=== PATIENT | male | born 1990 | race Hispanic/Latino ===

== ENCOUNTER 2017-08-17 11:37 | Emergency (ER) | payer OTHER ==
[~2017-08-17] VITALS: Ht 190.5 cm; Wt 120.2 kg
[2017-08-17] MEDS ORDERED: MORPHINE SULFATE 4 MG/ML SYR IV ONE (12:30)
[2017-08-17] MEDS ORDERED: ONDANSETRON HCL 4 MG ORAL DISINTEGRATING TAB SL ONE (12:30)
[2017-08-17] MEDS ORDERED: KEPPRA500 MG PO (14:37)
[2017-08-17 16:02] VITALS: BP 146/86
== END 2017-08-17 15:00 | disposition home or self-care (01) ==
LOC: FSED 11:37
DX: R10.12 Left upper quadrant pain (principal); R07.89 Other chest pain; G40.309 Generalized idiopathic epilepsy and epileptic syndromes, not intractable, without status epilepticus
CPT/HCPCS: 36415; 70460; 71101; 80053; 80156; 81003; 85025; 99284; J2270

== ENCOUNTER 2017-09-30 16:13 | Emergency (ER) | payer OTHER ==
[~2017-09-30] VITALS: Ht 190.5 cm; Wt 115.2 kg
[~2017-09-30 16:13] MED LIST: KEPPRA500 MG PO
[2017-09-30 17:44] VITALS: BP 130/66
== END 2017-09-30 17:51 | disposition home or self-care (01) ==
LOC: FSED 16:13
DX: K75.9 Inflammatory liver disease, unspecified (principal); K21.9 Gastro-esophageal reflux disease without esophagitis; F14.10 Cocaine abuse, uncomplicated; B19.20 Unspecified viral hepatitis C without hepatic coma; B20 Human immunodeficiency virus [HIV] disease
CPT/HCPCS: 80053; 80307; 81003; 85025; 99283

== ENCOUNTER 2017-11-08 12:23 | Emergency (ER) | payer OTHER ==
[~2017-11-08] VITALS: Ht 190.5 cm; Wt 115.2 kg
[2017-11-08] MEDS ORDERED: MORPHINE SULFATE INJ 4 MG/ML INJ IV STA (12:36)
[2017-11-08] MEDS ORDERED: ONDANSETRON HCL INJ 2 MG/ML VIAL IV STA (12:36)
[2017-11-08] MEDS ORDERED: KETOROLAC TROMETHAMINE 30 MG/ML VIAL IV STA (12:36)
[2017-11-08] MEDS ORDERED: SODIUM CHLORIDE 0.9% 1000ML 1,000 ML IV STA (12:36)
[2017-11-08 13:00] LABS: BASOPHILS % 0.3 % (0.0-1.0); EOSINOPHILS % 0.6 % (0.0-6.0); HEMATOCRIT 42.5 % (38.2-49.6); HEMOGLOBIN 14.5 g/dL (14.0-18.0); LYMPHOCYTES # (AUTO) 2.1 (1.0-3.2); LYMPHOCYTES % 33.3 % (18.0-39.1); MEAN CORPUSCULAR HEMOGLOBIN 30.4 pg (28-32); MEAN CORPUSCULAR HGB CONC 34.1 g/dL (31-35); MEAN CORPUSCULAR VOLUME 89.1 fL (81-99); MONOCYTES # (AUTO) 0.5 (0.2-0.8); MONOCYTES % 8.7 % (4.4-11.3); NEUTROPHILS # (AUTO) 3.5 (2.1-6.9); NEUTROPHILS % 56.6 % (38.7-80.0); PLATELET COUNT 255 x10e3/uL (140-360); RED BLOOD COUNT 4.77 x10e6/uL (4.3-5.7); RED CELL DISTRIBUTION WIDTH 13.7 % (11.7-14.4)
[2017-11-08 13:19] LABS: ALANINE AMINOTRANSFERASE 220 IU/L (0-55); ALBUMIN/GLOBULIN RATIO 0.7 (0.8-2.0); ALKALINE PHOSPHATASE 69 IU/L (40-150); AMYLASE 84 U/L (25-125); ANION GAP 13.1 mmol/L (8-16); BLOOD UREA NITROGEN 8 mg/dL (7-26); BUN/CREATININE RATIO 8 (6-25); CALCIUM 9.6 mg/dL (8.4-10.2); CARBON DIOXIDE 28 mmol/L (22-29); CHLORIDE 101 mmol/L (98-107); CREATININE, SERUM 1.03 mg/dL (0.72-1.25); EST GLOMERULAR FILTRATION RATE > 60 ML/MIN (60-); GLUCOSE 109 mg/dL (74-118); LIPASE 95 U/L (8-78); POTASSIUM 4.1 mmol/L (3.5-5.1); SODIUM 138 mmol/L (136-145)
[2017-11-08 13:23] LABS: CLARITY,URINE CLEAR (CLEAR); COLOR,URINE YELLOW (YELLOW); KETONES,URINE NEGATIVE (NEGATIVE); LEUKOCYTE ESTERASE ,URINE NEGATIVE (NEGATIVE); NITRITE,URINE NEGATIVE (NEGATIVE); PROTEIN,URINE DIPSTICK 2+ (NEGATIVE); URINE UROBILINOGEN 1 mg/dL (0.2 - 1)
[2017-11-08 13:24] LABS: BILIRUBIN,URINE NEGATIVE (NEGATIVE); WBC,URINE (MAN) 0-5 /HPF (0-5)
--- NOTE | 2017-11-08 13:53 | Diagnostic Imaging Report ---
EXAM: CT Abdomen and Pelvis WITHOUT contrast INDICATION: \S\STONE PROTOCOL \S\[id number] \S\1304 \S\Y COMPARISON: None. TECHNIQUE: Abdomen and pelvis were scanned utilizing a multidetector helical scanner from the lung base to the pubic symphysis without administration of IV contrast. Absence of intravenous contrast decreases sensitivity for detection of focal lesions and vascular pathology. Coronal and sagittal reformations were obtained. Routine protocol was performed. IV CONTRAST: None. ORAL CONTRAST: Water RADIATION DOSE: Total DLP: 894.7 mGy*cm Estimated effective dose: (DLP x 0.015 x size factor) mSv COMPLICATIONS: None FINDINGS: LINES and TUBES: None. LOWER THORAX: Unremarkable HEPATOBILIARY: No focal hepatic lesions. No biliary ductal dilation. Small amount of pneumobilia may be postoperative. No calcification within the common bile duct. GALLBLADDER: Cholecystectomy. SPLEEN: No splenomegaly. PANCREAS: No focal masses or ductal dilatation. Mild fat stranding surrounding the pancreatic tail (series 3, image 16 on coronal image 61). ADRENALS: No adrenal nodules KIDNEYS/URETERS: No hydronephrosis. No cystic or solid mass lesions. No stones. GI TRACT: No abnormal distention, wall thickening, or evidence of bowel obstruction. Appendix is normal. PELVIC ORGANS/BLADDER: Unremarkable. LYMPH NODES: Few nonspecific subcentimeter left para-aortic and retroperitoneal lymph nodes, for example on series 3, image 92. VESSELS: Unremarkable. PERITONEUM / RETROPERITONEUM: No free air or fluid. BONES: Unremarkable. SOFT TISSUES: Unremarkable. IMPRESSION: 1. Mild fat stranding surrounding the pancreatic tail may be due to acute pancreatitis. Correlate with pancreatic enzymes. 2. Status post cholecystectomy and mild pneumobilia, likely postoperative. 3. No calcified stones within the biliary ducts on limited evaluation. Signed by: Dr. Isela Sheikh M.D. on 11/08/2017 1:49 PM
[2017-11-08] MEDS ORDERED: HYDROCODONE/APAP 5MG-325MG TAB PO ONE (14:00)
[2017-11-08] MEDS ORDERED: FENTANYL CITRATE/PF 100MCG/2 ML INJ IV ONE (14:00)
[2017-11-08 18:25] LABS: EOSINOPHILS % (MANUAL) 1 % (0-7); LYMPHOCYTES % (MANUAL) 28 % (19-48); MONOCYTES % (MANUAL) 5 % (3.4-9.0); NEUTROPHILS % (MANUAL) 64 % (40-74)
[2017-11-08 18:27] LABS: PLATELET ESTIMATE ADEQUATE; PLATELET MORPHOLOGY COMMENT NORMAL; RBC MORPHOLOGY COMMENT NORMAL
== END 2017-11-08 14:45 | disposition home or self-care (01) ==
LOC: ER 12:23
DX: R07.89 Other chest pain (principal); R09.1 Pleurisy; B20 Human immunodeficiency virus [HIV] disease; G40.909 Epilepsy, unspecified, not intractable, without status epilepticus
CPT/HCPCS: 36415; 74176; 80053; 81001; 82150; 83690; 85025; 99284; J1885; J2270; J2405; J7030

== ENCOUNTER 2018-08-24 21:05 | Emergency (ER) | payer OTHER ==
[~2018-08-24] VITALS: Ht 190.5 cm; Wt 115.2 kg
[~2018-08-24 21:05] MED LIST changes: +CIPRO500 MG PO; +FLAGYL500 MG PO; +LEVETIRACETAM1000 MG PO; +TIVICAY PO; +TYLENOL WITH C1 EACH PO; +ZOFRAN4 MG SL
--- OUTSIDE RECORDS SUMMARY | 2018-08-24 21:08 | XMS REPORT ---
Author Author Admin, [place] Organization [facility] Address [address] [facility] [address] [place] [address] Phone Allergies, Adverse Reactions, Alerts Allergy Name Reaction Description Start Date Severity Status Provider CALIXTO rash Moderate Active Abdulaziz Chases EXPLOSIVE OPERATOR-C TIVICAY Mild No Longer Active Abdulaziz Quiles EXPLOSIVE OPERATOR-C TIVICAY Critical No Longer Active Amanda Munguia MA TIVICAY UNK Inactive Abdulaziz Chases EXPLOSIVE OPERATOR-C Conditions or Problems Problem Name Problem Code Onset Date Status Entry Date Provider Comment Standard Description Annotate STIMULANT USE DISORDER, COCAINE, MODERATE Active David Ram MD STIMULANT USE DISORDER, COCAINE, MILD Active David Ram MD ALCOHOL USE DISORDER, SEVERE Active David Ram MD STIMULANT INTOXICATION, COCAINE, W/OUT PERCEPT DISTURBNCS, W/ USE DISORD, MODERATE Active David Ram MD Pathological drug intoxication DEPRESSIVE DISORDER, MAJOR, RECURRENT EPISODE, MODERATE Active Isabelle Decker [facility] Major depressive disorder, recurrent episode, moderate degree Mood disorder 296.90 Active Abdulaziz Quiles EXPLOSIVE OPERATOR-C Unspecified episodic mood disorder Penile wart 078.11 Active Abdulaziz Quiles EXPLOSIVE OPERATOR-C Condyloma acuminatum Seizure disorder 780.39 Active Abdulaziz Chases EXPLOSIVE OPERATOR-C Other convulsions Transaminases, serum, elevated 790.4 Active Abdulaziz Quiles EXPLOSIVE OPERATOR-C Nonspecific elevation of levels of transaminase or lactic acid dehydrogenase [LDH] HIV infection 042 Active Anne Harp MA Human immunodeficiency virus [HIV] disease Dysuria ICD-788.1 Inactive Abdulaziz Quiles NP-C Pre-procedural laboratory examination ICD-V72.63 Inactive Abdulaziz Quiles NP-C Dysuria 788.1 Resolved Abdulaziz Quiles NP-C Dysuria Pre-procedural laboratory examination V72.63 Resolved Abdulaziz uQiles NP-C Pre-procedural laboratory examination Medication List Medication Instructions Start Date Stop Date Generic Name NDC Status Provider Patient Instruction SERTRALINE HCL 50 MG TABLET TAKE 1 TABLET BY MOUTH EVERY DAY SERTRALINE HCL 50060357326 Active Abdulaziz Quiles NP-C Active BACTRIM DS 800-160 MG ORAL TABLET Take one tablet by mouth once daily SULFAMETHOXAZOLE-TRIMETHOPRIM 31803260855 Active Abdulaziz Quiles NP-C Active DESCOVY 200-25 MG ORAL TABLET Take one tablet by mouth once daily EMTRICITABINE-TENOFOVIR AF 02909472470 Active Abdulaziz Quiles NP-C Active LEVETIRACETAM 500 MG ORAL TABLET Take one tablet by mouth twice daily LEVETIRACETAM 04682125461 Active Abdulaziz Quiles NP-C Active PREZCOBIX 800-150 MG ORAL TABLET Take one tablet by mouth once daily with food DARUNAVIR-COBICISTAT 04910291603 Active Abdulaziz Quiles NP-C Active IMIQUIMOD 5 % EXTERNAL CREAM Apply to affected area Mon., Wed. & Fri. at bedtime; wash off in a.m. IMIQUIMOD 5 % EXTERNAL CREAM 306851 IMIQUIMOD Inactive IMIQUIMOD 5 % EXTERNAL CREAM Apply to affected area Mon., Wed. & Fri. at bedtime; wash off in a.m. IMIQUIMOD 55187213053 No Longer Active Abdulaziz MORGANC Active Immunizations Vaccine Administration Date Value Standard Description influenza immunization (Flu Vax) has been administered given elsewhere influenza virus vaccine, unspecified formulation Vital Signs Date Name Value Unit Range Description blood pressure, diastolic 84 mm[Hg] BP deleon blood pressure, systolic 132 mm[Hg] BP sys height E&M 74 [in_us] Bdy height pulse rate E&M 80 /min Heart rate weight E&M 268 [lb_av] Weight Measured blood pressure, diastolic 82 mm[Hg] BP deleon blood pressure, systolic 129 mm[Hg] BP sys height E&M 74 [in_us] Bdy height pulse rate E&M 80 /min Heart rate weight E&M 269.20 [lb_av] Weight Measured blood pressure, diastolic 82 mm[Hg] BP deleon blood pressure, systolic 135 mm[Hg] BP sys height E&M 74 [in_us] Bdy height pulse rate E&M 78 /min Heart rate respiratory rate E&M 16 /min Resp rate temperature E&M 98.2 [degF] Body temperature weight E&M 266.13 [lb_av] Weight Measured blood pressure, diastolic 81 mm[Hg] BP deleon blood pressure, systolic 131 mm[Hg] BP sys height E&M 74 [in_us] Bdy height pulse rate E&M 82 /min Heart rate temperature E&M 98.2 [degF] Body temperature weight E&M 264 [lb_av] Weight Measured Diagnostic Results Date Name Value Unit Range Description Lab Report: CD4/CD8 Ratio Profile, Comp. Metabolic Panel (14), Lipid Lang ... - Chemistry very low density lipoproteins 46 mg/dL 5-40 Lab Report: CD4/CD8 Ratio Profile, Comp. Metabolic Panel (14), RNA, Real ... - Chemistry hepatitis B surface antigen Negative Negative chloride, serum 99 mmol/L 96-106 Lab Report: CD4/CD8 Ratio Profile, Comp. Metabolic Panel (14), RNA, Real ... - Microbiology hepatitis A antibody, total Positive Negative Lab Report: CD4/CD8 Ratio Profile, Comp. Metabolic Panel (14), RNA, Real ... - Chemistry urea nitrogen, blood 10 mg/dL 6-20 Lab Report: CD4/CD8 Ratio Profile, Comp. Metabolic Panel (14), RNA, Real ... - Serology HIV-1/HIV-2 Ab, serum Positive Negative Lab Report: QuantiFERON TB Gold (In Tube), QuantiFERON In Tube - Hematology Quantiferon Gold TB blood test for tuberculosis screening Negative Negative Lab Report: CD4/CD8 Ratio Profile, Comp. Metabolic Panel (14), RNA, Real ... - Serology human leukocyte antigen B57 Negative Lab Report: CD4/CD8 Ratio Profile, Comp. Metabolic Panel (14), RNA, Real ... - Hematology mean corpuscular hemoglobin concentration, RBC 34.3 G/DL % 31.5-35.7 erythrocyte (RBC) count 4.82 X10E6/UL 10*6/mm3 4.14-5.80 Lab Report: CD4/CD8 Ratio Profile, Comp. Metabolic Panel (14), RNA, Real ... - Serology hepatitis C antibody, serum 0.1 0.0-0.9 Lab Report: CD4/CD8 Ratio Profile, Comp. Metabolic Panel (14), RNA, Real ... - Chemistry absolute CD8 604 431-113 9370/02/25 Absolute Neutrophils 3.0 X10E3/UL 10*3/uL 1.4-7.0 Lab Report: CD4/CD8 Ratio Profile, Comp. Metabolic Panel (14), Lipid Lang ... - Chemistry LDL cholesterol, serum 86 mg/dL 0-99 Lab Report: CD4/CD8 Ratio Profile, Comp. Metabolic Panel (14), RNA, Real ... - Chemistry urea nitrogen/creatinine ratio, serum 12 9-20 Lab Report: CD4/CD8 Ratio Profile, Comp. Metabolic Panel (14), RNA, Real ... - Hematology mean corpuscular volume, RBC 93 fL 79-97 Lab Report: CD4/CD8 Ratio Profile, Comp. Metabolic Panel (14), Lipid Lang ... - Chemistry HDL cholesterol, serum 37 mg/dL >39 Lab Report: CD4/CD8 Ratio Profile, Comp. Metabolic Panel (14), RNA, Real ... - Hematology monocytes as percent of blood leukocytes 12 % Not Estab. Lab Report: CD4/CD8 Ratio Profile, Comp. Metabolic Panel (14), RNA, Real ... - Chemistry creatinine, serum 0.85 mg/dL 0.76-1.27 albumin/globulin ratio, serum 1.3 1.2-2.2 Lab Report: CD4/CD8 Ratio Profile, Comp. Metabolic Panel (14), Lipid Lang ... - Chemistry cholesterol, serum 169 mg/dL 100-199 Lab Report: CD4/CD8 Ratio Profile, Comp. Metabolic Panel (14), RNA, Real ... - Chemistry bilirubin, serum, total 0.8 mg/dL 0.0-1.2 Lab Report: CD4/CD8 Ratio Profile, Comp. Metabolic Panel (14), RNA, Real ... - Hematology Eosinophil Absolute Count 0.1 X10E3/UL 10*3/uL 0.0-0.4 Lab Report: Chlamydia/GC Amplification - Lab chlamydia DNA probe Negative Negative Lab Report: CD4/CD8 Ratio Profile, Comp. Metabolic Panel (14), RNA, Real ... - Chemistry aspartate aminotransferase (SGOT), serum 21 U/L 0-40 Lab Report: CD4/CD8 Ratio Profile, Comp. Metabolic Panel (14), RNA, Real ... - Hematology red blood cell distribution width 13.5 % 12.3-15.4 leukocyte count, blood 4.9 X10E3/UL 10*3/mm3 3.4-10.8 Lab Report: CD4/CD8 Ratio Profile, Comp. Metabolic Panel (14), RNA, Real ... - Chemistry potassium, serum 4.7 mmol/L 3.5-5.2 immature granulocytes, percentage of total cells, blood 0 % Not Estab. albumin, serum 4.6 g/dL 3.5-5.5 Lab Report: CD4/CD8 Ratio Profile, Comp. Metabolic Panel (14), RNA, Real ... - Hematology lymphocyte count, blood, automated 1.1 X10E3/UL 10*3/mm3 0.7-3.1 hematocrit, blood 44.6 % 37.5-51.0 Lab Report: Chlamydia/GC Amplification - Microbiology Neisseria gonorrhoeae DNA probe Negative Negative Lab Report: CD4/CD8 Ratio Profile, Comp. Metabolic Panel (14), RNA, Real ... - Chemistry sodium, serum 137 mmol/L 134-144 Lab Report: CD4/CD8 Ratio Profile, Comp. Metabolic Panel (14), RNA, Real ... - Serology toxoplasma gondii antibody, IgG <3.0 0.0-7.1 Lab Report: CD4/CD8 Ratio Profile, Comp. Metabolic Panel (14), RNA, Real ... - Hematology neutrophils as percent of blood leukocytes 64 % Not Estab. basophils as percent of blood leukocytes 0 % Not Estab. Lab Report: CD4/CD8 Ratio Profile, Comp. Metabolic Panel (14), RNA, Real ... - Serology HIV-1RNA, serum, by PCR, quantitative 1100 {Copies}/mL Lab Report: CD4/CD8 Ratio Profile, Comp. Metabolic Panel (14), RNA, Real ... - Toxicology HIV-2 antibodies, western blot Negative Negative Lab Report: CD4/CD8 Ratio Profile, Comp. Metabolic Panel (14), RNA, Real ... - Serology rapid plasma reagin antibody, serum Non Reactive Non Reactive Lab Report: CD4/CD8 Ratio Profile, Comp. Metabolic Panel (14), RNA, Real ... - Chemistry CD4/CD8 ratio 0.31 0.92-3.72 carbon dioxide, venous blood 27 mmol/L 20-29 Lab Report: CD4/CD8 Ratio Profile, Comp. Metabolic Panel (14), RNA, Real ... - Serology hepatitis B core antibody, total Negative Negative Lab Report: CD4/CD8 Ratio Profile, Comp. Metabolic Panel (14), Lipid Lang ... - Chemistry triglyceride, serum, fasting 230 mg/dL 0-149 Lab Report: CD4/CD8 Ratio Profile, Comp. Metabolic Panel (14), RNA, Real ... - Chemistry calcium, serum 9.4 mg/dL 8.7-10.2 alanine aminotransferase (SGPT), serum 27 U/L 0-44 Lab Report: CD4/CD8 Ratio Profile, Comp. Metabolic Panel (14), RNA, Real ... - Hematology mean corpuscular hemoglobin, RBC 31.7 pg 26.6-33.0 Lab Report: CD4/CD8 Ratio Profile, Comp. Metabolic Panel (14), RNA, Real ... - Chemistry protein, total, serum 8.1 g/dL 6.0-8.5 alkaline phosphatase, serum 83 U/L 39-117 Lab Report: CD4/CD8 Ratio Profile, Comp. Metabolic Panel (14), RNA, Real ... - Hematology T-helper cells (CD4) as percent of blood lymphocytes 17.0 % 30.8-58.5 hemoglobin, blood 15.3 g/dL 13.0-17.7 T-suppressor cells (CD8) as percent of blood lymphocytes 54.9 % 12.0-35.5 lymphocytes as percent of blood leukocytes 23 % Not Estab. Lab Report: CD4/CD8 Ratio Profile, Comp. Metabolic Panel (14), RNA, Real ... - Genetics/fertility eGFR if 138 mL/min/1.73m2 >59 Lab Report: CD4/CD8 Ratio Profile, Comp. Metabolic Panel (14), RNA, Real ... - Hematology basophil count, absolute 0.0 x10E3/uL 0.0-0.2 Lab Report: CD4/CD8 Ratio Profile, Comp. Metabolic Panel (14), RNA, Real ... - Chemistry globulin, serum 3.5 1.5-4.5 Estimated Glomerular Filtration Rate (calc) 119 mL/min/1.73m2 >59 Lab Report: CD4/CD8 Ratio Profile, Comp. Metabolic Panel (14), RNA, Real ... - Serology hepatitis B surface antibody Reactive Lab Report: CD4/CD8 Ratio Profile, Comp. Metabolic Panel (14), RNA, Real ... - Hematology eosinophils as percent of blood leukocytes 1 % Not Estab. Lab Report: CD4/CD8 Ratio Profile, Comp. Metabolic Panel (14), RNA, Real ... - Chemistry blood glucose, random 99 mg/dL 65-99 Lab Report: CD4/CD8 Ratio Profile, Comp. Metabolic Panel (14), RNA, Real ... - Hematology monocyte count, blood, automated 0.6 X10E3/UL 10*3/uL 0.1-0.9 T-helper cells (CD4) count 187 /UL uL 359-1519 platelet count 266 X10E3/UL 10*3/mm3 150-379 Encounters Date Encounter Provider Code Facility 10:59:00 CDT Est Patient Exp Problem - 96900 David Ram MD CPT-02701 [facility] Behavioral Health 08:36:47 ROLL EXAMINER Est Patient Exp Problem - 74449 Abdulaziz Quiles EXPLOSIVE OPERATOR-C CPT-70387 [facility] Adult Medicine 10:51:27 CDT New Patient Exp Problem - 41249 Abdulaziz Quiles EXPLOSIVE OPERATOR-C CPT-88938 [facility] Adult Medicine Procedures Code Procedure Name Date Entry Date Standard Description CPT-04483 Urine Drug Screen - In House 14:28:18 ROLL EXAMINER CPT-05555 Diagnostic evaluation with medical - 93627 14:28:18 ROLL EXAMINER CPT-30540 Diagnostic evaluation (no medical) - 55714 17:54:26 ROLL EXAMINER CPT-76555 Handling of specimen for transfer 09:51:58 CDT CPT-79717 Venipuncture 09:51:58 CDT
--- OUTSIDE RECORDS SUMMARY | 2018-08-24 21:08 | XMS REPORT | Clinical Summary ---
Author Author [facility] Address Unknown Phone Unavailable Care Team Providers Care Counter Caser Name Role Phone Heber Cruz MD PCP Allergies No Known Allergies Medications End Date Status Medication Sig Dispensed Refills Start Date Active pantoprazole (PROTONIX) Take 1 tablet 30 tablet 1 40 MG tablet (40 mg total) 7 by mouth daily. Active Problems Problem Noted Date Pancreatitis 06/11/2016 Obesity (BMI 30.0-34.9) 06/11/2016 Overview: BMI 34.7 Stress at work 06/11/2016 Pancreatitis, acute 09/23/2014 Leucocytosis 09/23/2014 Abdominal pain 09/23/2014 Nausea & vomiting 09/23/2014 Diarrhea 09/23/2014 LFTs abnormal 06/19/2014 Obesity 06/15/2014 Pancreatitis, recurrent Overview: > 4 episodes Family History Medical History Relation Name Comments Stroke Maternal Grandfather Stroke Paternal Grandfather Relation Name Status Comments Maternal Grandfather Paternal Grandfather Social History Date Tobacco Use Types Packs/Day Years Used Quit: 06/18/2016 Former Smoker Alcohol Use Drinks/Week oz/Week Comments No Sex Assigned at Date Recorded Not on file Industry Job Start Date Occupation Not on file Not on file Not on file Travel End Travel History Travel Start No recent travel history available. Last Filed Vital Signs Not on file Plan of Treatment Not on file Implants Device Identifier Shelf Expiration Date Model / Serial / Lot Implanted Type Area Manufactur er 09/07/2016 [id number] / / Stent,Biliary Flexima 8.5fr 7cm - Stents-Per [place] [id number] Implanted: Qty: 1 on 06/12/2014 09/07/2016 / REF [id number] / [id number] Flexima Biliary Duodenal Bend Stent N/A: Common [place] Implanted: Qty: 1 on 06/12/2014 by Bile Duct SCIENTIFIC Joslyn Metz MD Results Not on fileafter 08/23/2017 Advance Directives For more information, please contact: [address] [address] Date Inactivated Comments Code Status Date Activated 07/21/2016 7:40 PM Full Code 07/16/2016 7:44 PM This code status was determined by: Patient 09/26/2014 6:49 PM Full Code 09/23/2014 5:20 PM This code status was determined by: Patient 06/19/2014 6:05 PM Full Code 06/16/2014 6:10 PM This code status was determined by: Patient 06/13/2014 10:45 PM Full Code 06/10/2014 12:51 AM This code status was determined by: Patient
[2018-08-24] MEDS ORDERED: SODIUM CHLORIDE 0.9% 1000ML 1,000 ML IV STA (22:08)
[2018-08-24] MEDS ORDERED: DIATRIZOATE MEGL/DIATRIZOA SOD 30 ML BTL PO ONE (22:20)
[2018-08-24 22:29] LABS: BASOPHILS % 0.3 % (0.0-1.0); EOSINOPHILS % 0.3 % (0.0-6.0); HEMATOCRIT 45.3 % (38.2-49.6); HEMOGLOBIN 15.4 g/dL (14.0-18.0); LYMPHOCYTES # (AUTO) 1.3 (1.0-3.2); LYMPHOCYTES % 11.1 % (18.0-39.1); MEAN CORPUSCULAR HEMOGLOBIN 31.4 pg (28-32); MEAN CORPUSCULAR VOLUME 92.4 fL (81-99); MONOCYTES # (AUTO) 0.7 (0.2-0.8); MONOCYTES % 6.1 % (4.4-11.3); NEUTROPHILS # (AUTO) 9.2 (2.1-6.9); NEUTROPHILS % 81.6 % (38.7-80.0); PLATELET COUNT 294 x10e3/uL (140-360); RED CELL DISTRIBUTION WIDTH 12.8 % (11.7-14.4)
[2018-08-24 22:42] LABS: CLARITY,URINE HAZY (CLEAR); COLOR,URINE YELLOW (YELLOW)
[2018-08-24 22:43] LABS: KETONES,URINE TRACE (NEGATIVE); LEUKOCYTE ESTERASE ,URINE NEGATIVE (NEGATIVE); NITRITE,URINE NEGATIVE (NEGATIVE); PROTEIN,URINE DIPSTICK 1+ (NEGATIVE)
[2018-08-24 22:44] LABS: BILIRUBIN,URINE NEGATIVE (NEGATIVE); URINE UROBILINOGEN 1 mg/dL (0.2 - 1)
[2018-08-24 22:47] LABS: BACTERIA,URINE MODERATE /HPF; EPITHELIAL CELLS,URINE FEW /LPF; RBC,URINE 0-5 /HPF (0-5); WBC,URINE (MAN) 0-5 /HPF (0-5)
[2018-08-24 22:48] LABS: AMORPHOUS SEDIMENT,URINE MODERATE (FEW)
[2018-08-24 22:55] LABS: ALANINE AMINOTRANSFERASE 38 IU/L (0-55); ALBUMIN 4.1 g/dL (3.5-5.0); ALBUMIN/GLOBULIN RATIO 0.8 (0.8-2.0); ALKALINE PHOSPHATASE 73 IU/L (40-150); AMYLASE 115 U/L (25-125); ANION GAP 12.4 mmol/L (8-16); BLOOD UREA NITROGEN 12 mg/dL (7-26); BUN/CREATININE RATIO 13 (6-25); CALCIUM 9.8 mg/dL (8.4-10.2); CARBON DIOXIDE 26 mmol/L (22-29); CHLORIDE 100 mmol/L (98-107); CREATININE, SERUM 0.96 mg/dL (0.72-1.25); EST GLOMERULAR FILTRATION RATE > 60 ML/MIN (60-); GLUCOSE 106 mg/dL (74-118); LIPASE 42 U/L (8-78); MAGNESIUM 2.2 MG/DL (1.3-2.1); POTASSIUM 4.4 mmol/L (3.5-5.1); SODIUM 134 mmol/L (136-145)
[2018-08-24] MEDS ORDERED: MORPHINE SULFATE INJ 4 MG/ML INJ 1ML IV STA (23:16)
[2018-08-24] MEDS ORDERED: ONDANSETRON HCL INJ 2MG/ML 2ML 2 MG/ML VIAL IV STA (23:16)
[2018-08-24] MEDS ORDERED: IOPAMIDOL 370 MG/ML 200 ML INFUS..BTL INJ ONE (23:26)
[2018-08-24] MEDS ORDERED: SODIUM CHLORIDE 0.9% 50ML 50 ML ONE (23:26)
--- NOTE | 2018-08-25 00:21 | Diagnostic Imaging Report ---
CT Abdomen And Pelvis with Intravenous Contrast INDICATION: Nausea, vomiting, diarrhea ^LLQ pain, rule out colitis TECHNIQUE: Thin collimation axial images obtained from the diaphragm to the level of the pubic symphysis following the uneventful administration of oral and 100 cc of low osmolar, nonionic intravenous contrast. Dose reduction techniques used: Automated exposure control, adjustment of the mAs and/or kVp according to patient size, standardized low-dose protocol, and/or iterative reconstruction technique. RADIATION DOSE: Total DLP: 881.44 mGy*cm Estimated effective dose: (DLP x 0.015 x size factor) mSv CTDIvol has been reviewed. It is below the limits set by the Radiation Protocol Committee (RPC). COMPARISON: CT abdomen/pelvis 01/13/2018. ABDOMEN FINDINGS: Lung Bases: Clear. The visualized portions of the mediastinum are normal.. Liver: Mild steatosis. No evidence for mass. Gallbladder: Absent. No biliary ductal dilatation. Pancreas: Normal attenuation without mass or ductal dilatation. Spleen: Normal in size. No evidence of mass.. Adrenal Glands: No evidence for mass. Kidneys/ureters: Right: Normal enhancement. No soft tissue mass. No hydronephrosis. Left: Normal enhancement. No soft tissue mass. No hydronephrosis. No ureteral dilatation or calculus. Lymph Nodes: No enlarged abdominal or retroperitoneal lymph nodes. Aorta: Normal in diameter PELVIS FINDINGS: Bowel: Stomach: Normal. Small Bowel: Enteric contrast present throughout. No mural thickening or dilatation. Large Bowel: There is enteric contrast in the proximal right colon. No significant stool burden throughout the large bowel. No mural thickening or pericolonic inflammation.. Appendix: Normal appendix. Bladder: Normal. Peritoneum/retroperitoneum: No free fluid or fluid collection Bones: Unremarkable for age. Soft tissues: Fat-containing of focal hernia has an aperture of 9 mm. IMPRESSION: 1. No evidence for bowel obstruction or inflammation. Normal appendix. No alternative findings to explain left lower quadrant pain 2. Steatosis. 3. Cholecystectomy. Normal biliary tree. Signed by: Dr. Hugo Evans MD on 08/25/2018 12:18 AM
[2018-08-25 02:19] VITALS: BP 123/65
== END 2018-08-25 02:35 | disposition home or self-care (01) ==
LOC: ER 21:05
DX: R10.12 Left upper quadrant pain (principal); R11.2 Nausea with vomiting, unspecified; R19.7 Diarrhea, unspecified; B18.2 Chronic viral hepatitis C; Z21 Asymptomatic human immunodeficiency virus [HIV] infection status; G40.919 Epilepsy, unspecified, intractable, without status epilepticus; J45.909 Unspecified asthma, uncomplicated; G43.909 Migraine, unspecified, not intractable, without status migrainosus; K21.9 Gastro-esophageal reflux disease without esophagitis
CPT/HCPCS: 36415; 74177; 80053; 81001; 82150; 83690; 83735; 85025; 87086; 99284; J2270; J2405; J7030; Q9967

== ENCOUNTER 2019-12-14 14:49 | Emergency (ER) | payer OTHER ==
[~2019-12-14] VITALS: Ht 190.5 cm; Wt 115.2 kg
[~2019-12-14 14:49] MED LIST changes: +KEPPRA750 MG PO; +PREZCOBIX 8001 EACH; +PROMETHAZINE HC25 M1 PO; +SERTRALINE HCL50 MG PO; +SUMATRIPTAN SUC25 MG PO; +TOPAMAX200 MG; +TOPAMAX50 MG PO
[2019-12-14 15:41] LABS: BASOPHILS % 0.6 % (0.0-1.0); EOSINOPHILS # (AUTO) 0.2 (0.0-0.4); EOSINOPHILS % 2.3 % (0.0-6.0); HEMATOCRIT 44.4 % (38.2-49.6); HEMOGLOBIN 15.3 g/dL (14.0-18.0); LYMPHOCYTES % 29.6 % (18.0-39.1); MEAN CORPUSCULAR HGB CONC 34.5 g/dL (31-35); MEAN CORPUSCULAR VOLUME 90.1 fL (81-99); MONOCYTES # (AUTO) 0.5 (0.2-0.8); MONOCYTES % 7.6 % (4.4-11.3); NEUTROPHILS # (AUTO) 4.1 (2.1-6.9); NEUTROPHILS % 59.8 % (38.7-80.0); PLATELET COUNT 260 x10e3/uL (140-360); RED BLOOD COUNT 4.93 x10e6/uL (4.3-5.7); RED CELL DISTRIBUTION WIDTH 12.8 % (11.7-14.4)
[2019-12-14 15:43] LABS: AMPHETAMINES SCREEN,URINE NEGATIVE (NEGATIVE); BENZODIAZEPINES SCREEN,URINE NEGATIVE (NEGATIVE); PHENCYCLIDINE SCREEN,URINE NEGATIVE (NEGATIVE)
--- OUTSIDE RECORDS SUMMARY | 2019-12-14 15:43 | XMS REPORT | Clinical Summary ---
Author Author [facility] Organization [facility] Address Unknown Phone Unavailable Care Team Providers Care Division Operations Manager Name Role Phone Kapil Samuels MD PCP Allergies No Known Allergies Medications End Date Status Medication Sig Dispensed Refills Start Date Active traMADol (ULTRAM) 50 mg Take 1 tablet 10 tablet 0 tabletIndications: by mouth 7 Diarrhea of infectious every 8 hours origin as needed for Pain. Active qajnxdzk-ugafpzuccvqs-oqi Take 1 tablet 30 tablet 5 ivud (TRIUMEQ) 600-50-300 by mouth 8 mg per tabletIndications: daily Stop AIDS Descovy and Tivicay.. Active sertraline (ZOLOFT) 50 mg Take 1 tablet 30 tablet 5 tabletIndications: Panic by mouth 8 attack daily. Active clonazePAM (KLONOPIN) 0.5 Take 1 tablet 60 tablet 0 mg tabletIndications: by mouth 2 8 Panic attack times daily as needed for Anxiety. Active omeprazole (PRILOSEC) 20 Take 1 30 capsule 2 0 mg delayed release capsule by 8 capsuleIndications: mouth daily. 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 Generalized seizure True-positive serological test for syph ilis Seizure Acute intractable headache Immunizations Name Administration Dates Next Due Influenza Vaccine, 05/07/2017 Seasonal, Injectable Family History Medical History Relation Name Comments Arthritis Mother Diabetes Paternal Grandfather Hypertension Paternal Grandfather Stroke Paternal Grandfather Relation Name Status Comments Father Mother Alive Paternal Grandfather Social History Date Tobacco Use Types Packs/Day Years Used Never Smoker Drinks/Week oz/Week Comments Alcohol Use 4 Cans of beer 4 Shots of liquor 8.0 socially Yes Food Insecurity Answer Date Recorded Within the past 12 months, you worried that your Never gurjit e 05/07/2017 food would run out before you got money to buy more. Within the past 12 months, the food you bought Never true 05/07/2017 just didn't last and you didn't have mo enedelia to get more. Sex Assigned at Date Recorded Not on file Industry Job Start Date Occupation Not on file Not on file Not on file Travel End Travel History Travel Start No recent travel history available. Last Filed Vital Signs Not on file Plan of Treatment Health Maintenance Due Date Last Done Comments IMM Influenza Seasonal 02/09/2020 05/07/2017 Oct to July (>/= 19 yrs) Goals Goal Patient Associated Recent Progress Patient-Stat Aut hor Goal Type Problems ed? Eat Healthy Lifestyle No Andreina Bentley, Supervisor Frame Sample And Pattern Results Not on fileafter 12/13/2018 Insurance Type Payer Benefit Subscriber ID Effective Phone Address Plan / Dates Group [facility] xxxxxxxxxxxx 2017-P [address] [facility] resent [id number] [facility] [address] Advance Directives Date Inactivated Comments Code Status Date Activated 12/12/2016 7:26 PM Full Code 12/07/2016 12:35 PM
--- OUTSIDE RECORDS SUMMARY | 2019-12-14 15:43 | XMS REPORT | Clinical Summary ---
Author Author [facility] Organization [facility] Address Unknown Phone Unavailable Care Team Providers Care Skip Tracer Name Role Phone Heber Cruz MD PCP Unavailable Allergies No Known Allergies Medications End Date [...] Shelf Expiration Date Model / Serial / L ot Implanted Type Area Manufactur er 09/07/2016 [id number] / / Stent,Biliary Flexima 8.5fr 7cm - Stents-Per [place] [id number] [employer] Implanted: Qty: 1 on 06/12/2014 09/07/2016 / REF [id number] / [id number] Flexima Biliary Duodenal Bend Stent N/A: Common [employer] Implanted: Qty: 1 on 06/12/2014 by Bile Duct SC IENTIFIC Joslyn Metz MD Results Not on fileafter 12/13/2018 Advance Directives For more information, please contact: [address] [address] Date Inactivated Comments Code Status [...]
--- OUTSIDE RECORDS SUMMARY | 2019-12-14 15:45 | XMS REPORT ---
Author Author Tevin, Antonio Martin Organization Unknown Address Unknown Phone Unavailable Care Team Providers Care Hand Turner Name Role Phone Abdulaziz Quiles Unavailable PROBLEMS Condition Status Date Provider Notes Shortness of breath (SOB) active Abdulaziz farmer nxiety-induced Penile lesion completed - Abdulaziz Quiles STIMULANT USE DISORDER, COCAINE, MODERATE active 08/04 David Ram STIMULANT USE DISORDER, COCAINE, MILD completed - Abdulaziz Quiles STIMULANT INTOXICATION, COCAINE, W/OUT P ERCEPT DISTURBNCS, W/ USE DISORD, MODERATE active David Ram ALCOHOL USE DISORDER, SEVERE active David Petit DEPRESSIVE DISORDER, MAJOR, RECURRENT EPISODE, MODERATE active Isabelle Decker Transaminases, serum, elevated completed - Abdulaziz Quiles Dysuria completed - Abdulaziz Quiles Seizure disorder active Abdulaziz Quiles Mood disorder active Abdulaziz Quiles Penile wart completed - Abdulaziz Quiles HIV infection active Anne Harp Pre-procedural laboratory examination completed - Abdulaziz Quiles ENCOUNTERS Date Type Provider Location Encounter Diagn osis - Ambulatory Encounter David gardner Callabdulazizo David Jacobsonizo UNK - Ambulatory Encounter Meeta Gardner UNK - Ambulatory Encounter Abdulaziz Quiles [facility] UNK - Ambulatory Encounter Meeta Gardner UNK - Ambulatory Encounter Abdulaziz Citnron Si mmons UNK - Ambulatory Encounter Abdulaziz Mcmullen Shortne ss of breath (SOB) - Ambulatory Encounter Amanda Munguia UNK - Ambulatory Encounter Abdulaziz Taylor MedAdherence, UNK - Ambulatory Encounter Jay Quiros UNK - Ambulatory Encounter Abdulaziz Adams MedAdherence UNK - Ambulatory Encounter Abdulaziz Meyers MedAdherence UNK - Ambulatory Encounter Taya Desiraeina UNK - Ambulatory Encounter Abdulaziz Quiles [facility] UNK - Ambulatory Encounter Abdulaziz Meyers MedAdherence UNK - Ambulatory Encounter Abdulaziz Quiles [facility] UNK - Ambulatory Encounter Fax Status [facility] UNK - Ambulatory Encounter Fax Status [facility] UNK - Ambulatory Encounter Fax Status [facility] UNK - Ambulatory Encounter Abdulaziz Cole Ausra UNK - Ambulatory Encounter Abdulaziz Cintron Si mmons UNK - Ambulatory Encounter Abdulaziz Cintron Si mmons UNK - Ambulatory Encounter Abdulaziz Dowdda Dayna Cole Ausra Phyllis Boyd Meeta Faustinados Penile lesion - Ambulatory Encounter Dena Talamantes UNK - Ambulatory Encounter Dena Talamantes UNK - Ambulatory Encounter Abdulaziz Campbell MedAdherence, UNK - Ambulatory Encounter Abdulaziz Taylor MedAdherence, UNK - Ambulatory Encounter Abdulaziz Quiles [facility] UNK - Ambulatory Encounter Abdulaziz Quiles Link[facility] UNK - Ambulatory Encounter Abdulaziz Cintron Si mmons UNK - Ambulatory Encounter Abdulaziz Larose-Gómez Gardner Morlin Frey Penile wartT ransaminases, serum, elevatedSTIMULANT USE DISORDER, COCAINE, MILDPenile lesion - Ambulatory Encounter Abdulaziz Quiles [facility] UNK - Ambulatory Encounter Amanda Munguia UNK - Ambulatory Encounter Abdulaziz Gardner UNK - Ambulatory Encounter Amanda Munguia Maldonado Banks UNK - Ambulatory Encounter Abdulaziz Gardner UNK - Ambulatory Encounter Abdulaziz Quiles [facility] UNK - Ambulatory Encounter Abdulaziz Quiles [facility] UNK - Ambulatory Encounter Florina Watkins UNK - Ambulatory Encounter Abdulaziz Adams MedAdherence UNK - Ambulatory Encounter [facility] Desktop [facility] Meeta Gardner UNK - [place] [facility] [place] [facility] [place] [place] [facility] Meeta Faustinados UNK - Ambulatory Encounter Florina Watkins LinkLog ic UNK - Ambulatory Encounter Abdulaziz Quiles [facility] UNK - Ambulatory Encounter Abdulaziz Quiles LinkLog[facility]ita UNK - Ambulatory Encounter Abdulaziz Quiles [facility] UNK - Ambulatory Encounter Abdulaziz Quiles [facility] UNK - Ambulatory Encounter Abdulaziz Quiles [facility] UNK - Ambulatory Encounter Amanda Munguia UNK - Ambulatory Encounter David Yon z Callizo David Jyotioz Callizo Joce Campbell MedAdherence, UNK - Ambulatory Encounter Abdulaziz Adams MedAdherence UNK - Ambulatory Encounter Amanda Munguia UNK - Ambulatory Encounter Amanda Munguia UNK - Ambulatory Encounter Christine Augustine UNK - Ambulatory Encounter Fax Status [facility] UNK - Ambulatory Encounter Shayna Montenegro UNK - Ambulatory Encounter Bridget Taylor UNK - Ambulatory Encounter David Yon z Callizo David Jyotioz Callizo Abdulaziz Grace MedAdherence UNK - Ambulatory Encounter Amanda Munguia UNK - Ambulatory Encounter David Yon z Callizo David Jyotioz Callizo Thida Mcintosh Konstantin Marina STIMULANT US E DISORDER, COCAINE, MODERATE - Ambulatory Encounter Abdulaziz Quiles [facility] UNK - Ambulatory Encounter David Solomono z Callizo David Leoz Callizo Konstantin Marina ALCOHOL USE DISORDER, S EVERESTIMULANT INTOXICATION, COCAINE, W/OUT PERCEPT DISTURBNCS, W/ USE DISORD, MODERATESTIMULANT USE DISORDER, COCAINE, MILD - Ambulatory Encounter Abdulaziz Cintron Si mmons UNK - Ambulatory Encounter Christine Fidencio Augustine UNK - Ambulatory Encounter Taya Patel UNK - Ambulatory Encounter Abdulaziz Chester UNK - Ambulatory Encounter Abdulaziz EdwardsLogtita UNK - Ambulatory Encounter Adarshki Figueroa UNK - Ambulatory Encounter Gaylechristina Figueroa UNK - Ambulatory Encounter Isabelle Lyon e Isabelle Cheng DEPRESSIVE DISORDER, MAJOR, RECURRENT EPISODE, MODERATE - Ambulatory Encounter Abdulaziz Cintron Si mmons UNK - Ambulatory Encounter Abdulaziz Nichols Dysuria - Ambulatory Encounter Amanda Munguia UNK - Ambulatory Encounter Abdulaziz Quiles Link[facility] UNK - Ambulatory Encounter Abdulaziz Quiles [facility] UNK - Ambulatory Encounter Angelique EdwardsLog ic UNK - Ambulatory Encounter Abdulaziz Munguia UNK - Ambulatory Encounter Fax Status [facility] UNK - Ambulatory Encounter Fax Status [facility] UNK - Ambulatory Encounter Fax Status [facility] UNK - Ambulatory Encounter Angelique Pederson UNK - Ambulatory Encounter Venice Farhan UNK - Ambulatory Encounter [place] Farhan UNK - Ambulatory Encounter Abdulaziz dhaliwal UNK - Ambulatory Encounter Abdulaziz Larose-Gómez Monten[place] Pre-procedural laboratory ex aminationPenile wartMood disorderSeizure disorderDysuriaTransaminases, serum, elevated - Ambulatory Encounter Amanda Posadasrez UNK - Ambulatory Encounter Abdulaziz Nichols UNK - Ambulatory Encounter Abdulaziz Quiles [facility] UNK - Ambulatory Encounter Abdulaziz Quiles [facility] UNK - Ambulatory Encounter Abdulaziz Quiles Anne Harp Anne Harp Pre-procedural labo ratory examinationHIV infection VITAL SIGNS Date Observation Value Provider oxygen saturation, oximetry 97 % Ricki ardo Rivera Kemi " method used to obtain blood pressure automatic Jonathan Rivera Kemi " Blood Pressure Position 01 sitting Zoey rdo Rivera Kemi " blood pressure, site #1 right arm Jonathan Rivera Kemi " blood pressure, diastolic 74 mm[Hg] Leonar do Rivera Kemi " blood pressure, systolic 136 mm[Hg] Seth o Rivera Kemi " pulse rate 80 /min Jonathan Contrer as Kemi " temperature site temporal Jonathan Contre claar Kemi " temperature E&M 97.16 [degF] Jonathan Contrer as Kemi " temperature in centigrade E&M 36.2 Claudia Le onardo Rivera Kemi " weight E&M 266 lbs. Jonathan Contrer as Kemi " weight in kilograms E&M 120.91 kg Jonathan Rivera Kemi blood pressure, diastolic 63 mm[Hg] Meeta Gardner " blood pressure, systolic 110 mm[Hg] Meeta hassansuhail " pulse rate 66 /min Meeta Gardner " oxygen saturation, oximetry 97 % Asad Gardner " temperature E&M 98.6 [degF] Meeta Gardner " weight E&M 266 lbs. Meeta Gardner " weight in kilograms E&M 120.91 kg Meeta Gr zully " blood pressure, site #1 left arm Meeta Luis Miguel andrea " Blood Pressure Position 01 sitting Meeta Gardenr " method used to obtain blood pressure automatic Meeta Gardner " temperature site oral Meeta Gardner " height E&M 74 [in_i] Meeta Gardner " height in centimeters E&M 187.96 cm Meeta [facility] blood pressure, diastolic 71 mm[Hg] Meeta Gardner " blood pressure, systolic 114 mm[Hg] Meeta christianson " oxygen saturation, oximetry 96 % Asad Gardner " pulse rate 77 /min Meeta Gardner " temperature E&M 98.2 [degF] Meeta Gardner " weight E&M 266 lbs. Meeta Gardner " weight in kilograms E&M 120.91 kg Meeta andrea " blood pressure, site #1 left arm Meeta Luis Miguel andrea " Blood Pressure Position 01 sitting Meeta Gardner " method used to obtain blood pressure automatic Meeta Faustinados " temperature site oral Meeta Gardner " height E&M 74 [in_i] Meeta Gardner " height in centimeters E&M 187.96 cm Meeta [facility] method used to obtain blood pressure automatic Thida Mcintosh " Blood Pressure Position 01 sitting Thida Mcintosh " blood pressure, site #1 right arm Thida Tr an " blood pressure, diastolic 84 mm[Hg] Thida Mcintosh " blood pressure, systolic 132 mm[Hg] Thida T ran " pulse rate 80 /min Thida Mcintosh " weight E&M 268 lbs. Thida Mcintosh " weight in kilograms E&M 121.82 kg Thida Tr an " height E&M 74 [in_i] Thida Mcintosh " height in centimeters E&M 187.96 cm Thida Mcintosh method used to obtain blood pressure automatic Konstantin Marina " Blood Pressure Position 01 sitting Isaia s Marina " blood pressure, site #1 right arm Konstantin C anizales " blood pressure, diastolic 82 mm[Hg] Konstantin Marina " blood pressure, systolic 129 mm[Hg] Konstantin Marina " pulse rate 80 /min Konstantin Marina " weight E&M 269.20 lbs. Konstantin Marina " weight in kilograms E&M 122.36 kg Konstantin C anizales " height E&M 74 [in_i] Konstantin Marina " height in centimeters E&M 187.96 cm Konstantin Marina oxygen saturation, oximetry 98 % Francesco jyoti Nichols " respiratory rate E&M 16 /min Mitali Lauro cronin " pulse rate 78 /min Mitali Lauro Nichols " blood pressure, diastolic 82 mm[Hg] Mitali J Simone " blood pressure, systolic 135 mm[Hg] Mitali J Simone " temperature E&M 98.2 [degF] Mitali Lauro Nichols " weight E&M 266.13 lbs. Mitalijyoti Nichols " weight in kilograms E&M 120.97 kg Mitalijyoti Nichols " method used to obtain blood pressure automatic Mitali Nichols " Blood Pressure Position 01 sitting Briseydasamantha Nichols " blood pressure, site #1 left arm Mitali J Simone " temperature site oral Mitali Lauro Nichols " height E&M 74 [in_i] Mitalijyoti Nichols " height in centimeters E&M 187.96 cm Mitalijyoti Nichols oxygen saturation, oximetry 97 % Nikole Mota " pulse rate 82 /min Nelsy Mota " blood pressure, diastolic 81 mm[Hg] Sai eth Nakul " blood pressure, systolic 131 mm[Hg] Elizabe th Nakul " temperature E&M 98.2 [degF] Nelsy Nakul " weight E&M 264 lbs. Nelsy Nakul " weight in kilograms E&M 120 kg Thalia clayton Nakul " height E&M 74 [in_i] Nelsy Mota " height in centimeters E&M 187.96 cm Sai Mota " blood pressure, site #1 left arm Thalia clayton Nakul " Blood Pressure Position 01 sitting Alis figueroa Nakul " method used to obtain blood pressure automatic Nelsy Mota " temperature site oral Nelsy Mota ALLERGIES Allergy Name Onset Date Reaction Criticality Status TIVICAY aborted TRIUMEQ rash Unable to assess criticality active REASON FOR REFERRAL Start Date - End Date Service - Neurology - External RESULTS Date Observation Value Provider Reference Range Interpretati on Location rapid plasma reagin antibody, serum Non Reactive Link[facility] Non Reactive " HIV-1RNA, serum, by PCR, quantitative 280 /mL [facility] " alanine aminotransferase (SGPT), serum 28 1/L [facility] 0-44 " aspartate aminotransferase (SGOT), serum 19 1/L [facility] 0-40 " alkaline phosphatase, serum 82 1/L [facility] 39-117 " bilirubin, serum, total 0.4 mg/dL [facility] 0.0-1.2 " albumin/globulin ratio, serum 1.5 [facility] 1.2-2.2 " globulin, serum 3.1 [facility] 1.5-4.5 " albumin, serum 4.5 g/dL [facility] 4.1-5.2 " protein, total, serum 7.6 g/dL [facility] 6.0-8.5 " calcium, serum 9.3 mg/dL [facility] 8.7-10.2 " carbon dioxide, venous blood 24 mmol/L [facility] 20-29 " chloride, serum 100 mmol/L [facility] 96-106 " potassium, serum 4.3 mmol/L [facility] 3.5-5.2 " sodium, serum 138 mmol/L [facility] 134-144 " urea nitrogen/creatinine ratio, serum 10 [facility] 9 -20 " eGFR if 118 mL/min/((173/100).m2) [facility] >59 " Estimated Glomerular Filtration Rate (calc) 102 mL/min/((173/100).m2) [facility] >59 " creatinine, serum 1.00 mg/dL [facility] 0.76-1.27 " urea nitrogen, blood 10 mg/dL [facility] 6-20 " blood glucose, random 97 mg/dL [facility] 65-99 " immature granulocytes, percentage of total cells, bloo d 0 % [facility] Not Estab. " basophil count, absolute 0.0 x10E3/uL [facility] 0.0-0.2 " Eosinophil Absolute Count 0.2 X10E3/UL [facility] 0.0-0.4 " monocyte count, blood, automated 0.5 X10E3/UL [facility] 0.1 -0.9 " lymphocyte count, blood, automated 1.7 X10E3/UL [facility] 0 .7-3.1 " Absolute Neutrophils 3.8 X10E3/UL [facility] 1.4-7.0 " basophils as percent of blood leukocytes 1 % [facility] Not Estab. " eosinophils as percent of blood leukocytes 3 % [facility] ic Not Estab. " monocytes as percent of blood leukocytes 8 % [facility] Not Estab. " lymphocytes as percent of blood leukocytes 28 % [facility] Not Estab. " neutrophils as percent of blood leukocytes 60 % [facility] Not Estab. " platelet count 256 X10E3/UL [facility] 150-450 " red blood cell distribution width 14.0 % [facility] 11.6- 15.4 " mean corpuscular hemoglobin concentration, RBC 34.2 G/DL [facility] 31.5-35.7 " mean corpuscular hemoglobin, RBC 32.0 pg [facility] 26.6-3 3.0 " mean corpuscular volume, RBC 94 fL [facility] 79-97 " hematocrit, blood 42.1 % [facility] 37.5-51.0 " hemoglobin, blood 14.4 g/dL [facility] 13.0-17.7 " erythrocyte (RBC) count 4.50 X10E6/UL [facility] 4.14-5.80 " leukocyte count, blood 6.2 X10E3/UL [facility] 3.4-10.8 " CD4/CD8 ratio 0.37 [facility] 0.92-3.72 Low " T-suppressor cells (CD8) as percent of blood lymphocyt es 54.0 % [facility] 12.0-35.5 High " absolute CD8 918 [facility] 109-897 High " T-helper cells (CD4) as percent of blood lymphocytes 1 9.9 % [facility] 30.8-58.5 Low " T-helper cells (CD4) count 338 /UL [facility] [phone] Lo w HIV-1RNA, serum, by PCR, quantitative 660 /mL [facility] HERPES SIMPLEX VIRUS IDENTIFIED (PT; XXX; QL; ) HSVN L inkLogic hepatitis B surface antigen Negative [facility] Negative " hepatitis C antibody, serum <0.1 [facility] 0.0-0.9 " rapid plasma reagin antibody, serum Non Reactive [facility] Non Reactive " HIV-1RNA, serum, by PCR, quantitative 759947 /mL [facility] " LDL cholesterol, serum 73 mg/dL [facility] 0-99 " very low density lipoproteins 35 mg/dL [facility] 5-40 " HDL cholesterol, serum 25 mg/dL [facility] >39 Low " triglyceride, serum, fasting 175 mg/dL [facility] 0-149 High " cholesterol, serum 133 mg/dL [facility] 100-199 " alanine aminotransferase (SGPT), serum 60 1/L [facility] 0-44 High " aspartate aminotransferase (SGOT), serum 36 1/L [facility] 0-40 " alkaline phosphatase, serum 91 1/L [facility] 39-117 " bilirubin, serum, total 0.5 mg/dL [facility] 0.0-1.2 " albumin/globulin ratio, serum 1.2 [facility] 1.2-2.2 " globulin, serum 3.8 [facility] 1.5-4.5 " albumin, serum 4.5 g/dL [facility] 4.1-5.2 " protein, total, serum 8.3 g/dL [facility] 6.0-8.5 " calcium, serum 9.1 mg/dL [facility] 8.7-10.2 " carbon dioxide, venous blood 21 mmol/L [facility] 20-29 " chloride, serum 102 mmol/L [facility] 96-106 " potassium, serum 4.2 mmol/L [facility] 3.5-5.2 " sodium, serum 138 mmol/L [facility] 134-144 " urea nitrogen/creatinine ratio, serum 11 [facility] 9 -20 " eGFR if 138 mL/min/((173/100).m2) [facility] >59 " Estimated Glomerular Filtration Rate (calc) 119 mL/min/((173/100).m2) [facility] >59 " creatinine, serum 0.84 mg/dL [facility] 0.76-1.27 " urea nitrogen, blood 9 mg/dL [facility] 6-20 " blood glucose, random 96 mg/dL [facility] 65-99 " immature granulocytes, percentage of total cells, bloo d 0 % [facility] Not Estab. " basophil count, absolute 0.0 x10E3/uL [facility] 0.0-0.2 " Eosinophil Absolute Count 0.1 X10E3/UL [facility] 0.0-0.4 " monocyte count, blood, automated 0.5 X10E3/UL [facility] 0.1 -0.9 " lymphocyte count, blood, automated 1.1 X10E3/UL [facility] 0 .7-3.1 " Absolute Neutrophils 2.5 X10E3/UL [facility] 1.4-7.0 " basophils as percent of blood leukocytes 1 % [facility] Not Estab. " eosinophils as percent of blood leukocytes 1 % [facility] Not Estab. " monocytes as percent of blood leukocytes 11 % [facility] Not Estab. " lymphocytes as percent of blood leukocytes 26 % [facility] Not Estab. " neutrophils as percent of blood leukocytes 61 % [facility] Not Estab. " platelet count 217 X10E3/UL [facility] 150-450 " red blood cell distribution width 14.1 % [facility] 11.6- 15.4 " mean corpuscular hemoglobin concentration, RBC 32.1 G/DL [facility] 31.5-35.7 " mean corpuscular hemoglobin, RBC 29.8 pg [facility] 26.6-3 3.0 " mean corpuscular volume, RBC 93 fL [facility] 79-97 " hematocrit, blood 44.3 % [facility] 37.5-51.0 " hemoglobin, blood 14.2 g/dL [facility] 13.0-17.7 " erythrocyte (RBC) count 4.76 X10E6/UL [facility] 4.14-5.80 " leukocyte count, blood 4.2 X10E3/UL [facility] 3.4-10.8 " CD4/CD8 ratio 0.19 [facility] 0.92-3.72 Low " T-suppressor cells (CD8) as percent of blood lymphocyt es 63.2 % [facility] 12.0-35.5 High " absolute CD8 695 [facility] 109-897 " T-helper cells (CD4) as percent of blood lymphocytes 1 2.0 % [facility] 30.8-58.5 Low " T-helper cells (CD4) count 132 /UL [facility] [phone] Lo w Neisseria gonorrhoeae DNA probe Negative [facility] Negati ve " chlamydia DNA probe Negative [facility] Negative rapid plasma reagin antibody, serum Non Reactive [facility] Non Reactive " HIV-1RNA, serum, by PCR, quantitative 1100 /mL [facility] " alanine aminotransferase (SGPT), serum 27 1/L [facility] 0-44 " aspartate aminotransferase (SGOT), serum 21 1/L [facility] 0-40 " alkaline phosphatase, serum 83 1/L [facility] 39-117 " bilirubin, serum, total 0.8 mg/dL [facility] 0.0-1.2 " albumin/globulin ratio, serum 1.3 [facility] 1.2-2.2 " globulin, serum 3.5 [facility] 1.5-4.5 " albumin, serum 4.6 g/dL [facility] 3.5-5.5 " protein, total, serum 8.1 g/dL [facility] 6.0-8.5 " calcium, serum 9.4 mg/dL [facility] 8.7-10.2 " carbon dioxide, venous blood 27 mmol/L [facility] 20-29 " chloride, serum 99 mmol/L [facility] 96-106 " potassium, serum 4.7 mmol/L [facility] 3.5-5.2 " sodium, serum 137 mmol/L [facility] 134-144 " urea nitrogen/creatinine ratio, serum 12 [facility] 9 -20 " eGFR if 138 mL/min/((173/100).m2) [facility] >59 " Estimated Glomerular Filtration Rate (calc) 119 mL/min/((173/100).m2) [facility] >59 " creatinine, serum 0.85 mg/dL [facility] 0.76-1.27 " urea nitrogen, blood 10 mg/dL [facility] 6-20 " blood glucose, random 99 mg/dL [facility] 65-99 " immature granulocytes, percentage of total cells, bloo d 0 % [facility] Not Estab. " basophil count, absolute 0.0 x10E3/uL [facility] 0.0-0.2 " Eosinophil Absolute Count 0.1 X10E3/UL [facility] 0.0-0.4 " monocyte count, blood, automated 0.6 X10E3/UL [facility] 0.1 -0.9 " lymphocyte count, blood, automated 1.1 X10E3/UL [facility] 0 .7-3.1 " Absolute Neutrophils 3.0 X10E3/UL [facility] 1.4-7.0 " basophils as percent of blood leukocytes 0 % [facility] Not Estab. " eosinophils as percent of blood leukocytes 1 % [facility] Not Estab. " monocytes as percent of blood leukocytes 12 % [facility] Not Estab. " lymphocytes as percent of blood leukocytes 23 % [facility] Not Estab. " neutrophils as percent of blood leukocytes 64 % [facility] Not Estab. " platelet count 266 X10E3/UL [facility] 150-379 " red blood cell distribution width 13.5 % [facility] 12.3- 15.4 " mean corpuscular hemoglobin concentration, RBC 34.3 G/DL [facility] 31.5-35.7 " mean corpuscular hemoglobin, RBC 31.7 pg [facility] 26.6-3 3.0 " mean corpuscular volume, RBC 93 fL [facility] 79-97 " hematocrit, blood 44.6 % [facility] 37.5-51.0 " hemoglobin, blood 15.3 g/dL [facility] 13.0-17.7 " erythrocyte (RBC) count 4.82 X10E6/UL [facility] 4.14-5.80 " leukocyte count, blood 4.9 X10E3/UL [facility] 3.4-10.8 " CD4/CD8 ratio 0.31 [facility] 0.92-3.72 Low " T-suppressor cells (CD8) as percent of blood lymphocyt es 54.9 % [facility] 12.0-35.5 High " absolute CD8 604 [facility] 109-897 " T-helper cells (CD4) as percent of blood lymphocytes 1 7.0 % [facility] 30.8-58.5 Low " T-helper cells (CD4) count 187 /UL [facility] [phone] Lo w rapid plasma reagin antibody, serum Non Reactive [facility] Non Reactive " HIV-1RNA, serum, by PCR, quantitative 1440 /mL [facility] " LDL cholesterol, serum 86 mg/dL [facility] 0-99 " very low density lipoproteins 46 mg/dL [facility] 5-40 High " HDL cholesterol, serum 37 mg/dL [facility] >39 Low " triglyceride, serum, fasting 230 mg/dL [facility] 0-149 High " cholesterol, serum 169 mg/dL [facility] 100-199 " alanine aminotransferase (SGPT), serum 71 1/L [facility] 0-44 High " aspartate aminotransferase (SGOT), serum 36 1/L [facility] 0-40 " alkaline phosphatase, serum 77 1/L [facility] 39-117 " bilirubin, serum, total 0.7 mg/dL [facility] 0.0-1.2 " albumin/globulin ratio, serum 1.1 [facility] 1.2-2.2 Low " globulin, serum 4.3 [facility] 1.5-4.5 " albumin, serum 4.6 g/dL [facility] 3.5-5.5 " protein, total, serum 8.9 g/dL [facility] 6.0-8.5 High " calcium, serum 9.8 mg/dL [facility] 8.7-10.2 " carbon dioxide, venous blood 25 mmol/L [facility] 20-29 " chloride, serum 100 mmol/L [facility] 96-106 " potassium, serum 4.8 mmol/L [facility] 3.5-5.2 " sodium, serum 138 mmol/L [facility] 134-144 " urea nitrogen/creatinine ratio, serum 10 [facility] 9 -20 " eGFR if 108 mL/min/((173/100).m2) [facility] >59 " Estimated Glomerular Filtration Rate (calc) 93 m L/min/((173/100).m2) [facility] >59 " creatinine, serum 1.09 mg/dL [facility] 0.76-1.27 " urea nitrogen, blood 11 mg/dL [facility] 6-20 " blood glucose, random 104 mg/dL [facility] 65-99 High " immature granulocytes, percentage of total cells, bloo d 0 % [facility] Not Estab. " basophil count, absolute 0.0 x10E3/uL [facility] 0.0-0.2 " Eosinophil Absolute Count 0.1 X10E3/UL [facility] 0.0-0.4 " monocyte count, blood, automated 0.6 X10E3/UL [facility] 0.1 -0.9 " lymphocyte count, blood, automated 1.3 X10E3/UL [facility] 0 .7-3.1 " Absolute Neutrophils 4.0 X10E3/UL [facility] 1.4-7.0 " basophils as percent of blood leukocytes 0 % [facility] Not Estab. " eosinophils as percent of blood leukocytes 1 % [facility] Not Estab. " monocytes as percent of blood leukocytes 11 % [facility] Not Estab. " lymphocytes as percent of blood leukocytes 22 % [facility] Not Estab. " neutrophils as percent of blood leukocytes 66 % [facility] Not Estab. " platelet count 303 X10E3/UL [facility] 150-379 " red blood cell distribution width 14.0 % [facility] 12.3- 15.4 " mean corpuscular hemoglobin concentration, RBC 34.6 G/DL [facility] 31.5-35.7 " mean corpuscular hemoglobin, RBC 31.1 pg [facility] 26.6-3 3.0 " mean corpuscular volume, RBC 90 fL [facility] 79-97 " hematocrit, blood 43.4 % [facility] 37.5-51.0 " hemoglobin, blood 15.0 g/dL [facility] 13.0-17.7 " erythrocyte (RBC) count 4.82 X10E6/UL [facility] 4.14-5.80 " leukocyte count, blood 6.0 X10E3/UL [facility] 3.4-10.8 " CD4/CD8 ratio 0.23 [facility] 0.92-3.72 Low " T-suppressor cells (CD8) as percent of blood lymphocyt es 58.7 % [facility] 12.0-35.5 High " absolute CD8 763 [facility] 109-897 " T-helper cells (CD4) as percent of blood lymphocytes 1 3.6 % [facility] 30.8-58.5 Low " T-helper cells (CD4) count 177 /UL [facility] [phone] Lo w alanine aminotransferase (SGPT), serum 94 1/L [facility] 0-44 High " aspartate aminotransferase (SGOT), serum 40 1/L [facility] 0-40 " alkaline phosphatase, serum 80 1/L [facility] 39-117 " bilirubin, serum, total 0.8 mg/dL [facility] 0.0-1.2 " albumin/globulin ratio, serum 1.0 [facility] 1.2-2.2 Low " globulin, serum 4.5 [facility] 1.5-4.5 " albumin, serum 4.3 g/dL [facility] 3.5-5.5 " protein, total, serum 8.8 g/dL [facility] 6.0-8.5 High " calcium, serum 9.2 mg/dL [facility] 8.7-10.2 " carbon dioxide, venous blood 25 mmol/L [facility] 20-29 " chloride, serum 94 mmol/L [facility] 96-106 Low " potassium, serum 4.4 mmol/L [facility] 3.5-5.2 " sodium, serum 136 mmol/L [facility] 134-144 " urea nitrogen/creatinine ratio, serum 11 [facility] 9 -20 " eGFR if 138 mL/min/((173/100).m2) [facility] >59 " Estimated Glomerular Filtration Rate (calc) 119 mL/min/((173/100).m2) [facility] >59 " creatinine, serum 0.87 mg/dL [facility] 0.76-1.27 " urea nitrogen, blood 10 mg/dL [facility] 6-20 " blood glucose, random 96 mg/dL [facility] 65-99 Quantiferon Gold TB blood test for tuberculosis screening Negative [facility] Negative hepatitis A antibody, total Positive [facility] Negative Abnormal " hepatitis B core antibody, total Negative [facility] Negati ve " hepatitis B surface antigen Negative [facility] Negative " rapid plasma reagin antibody, serum Non Reactive [facility] Non Reactive " hepatitis C antibody, serum 0.1 [facility] 0.0-0.9 " HIV-2 antibodies, western blot Negative [facility] Negative " HIV-1/HIV-2 Ab, serum Positive [facility] Negative Abnorma l " HIV-CMIA (Chemiluminescent Microparticle Immuno Assay) Reactive [facility] Non Reactive Abnormal " human leukocyte antigen B57 Negative [facility] " toxoplasma gondii antibody, IgG <3.0 [facility] 0.0-7.1 " hepatitis B surface antibody Reactive [facility] " HIV-1RNA, serum, by PCR, quantitative 510376 /mL [facility] " alanine aminotransferase (SGPT), serum 165 1/L [facility] 0-44 High " aspartate aminotransferase (SGOT), serum 87 1/L [facility] 0-40 High " alkaline phosphatase, serum 78 1/L [facility] 39-117 " bilirubin, serum, total 0.6 mg/dL [facility] 0.0-1.2 " albumin/globulin ratio, serum 1.1 [facility] 1.2-2.2 Low " globulin, serum 4.0 [facility] 1.5-4.5 " albumin, serum 4.2 g/dL [facility] 3.5-5.5 " protein, total, serum 8.2 g/dL [facility] 6.0-8.5 " calcium, serum 8.9 mg/dL [facility] 8.7-10.2 " carbon dioxide, venous blood 25 mmol/L [facility] 20-29 " chloride, serum 100 mmol/L [facility] 96-106 " potassium, serum 4.6 mmol/L [facility] 3.5-5.2 " sodium, serum 137 mmol/L [facility] 134-144 " urea nitrogen/creatinine ratio, serum 7 [facility] 9 -20 Low " eGFR if 118 mL/min/((173/100).m2) [facility] >59 " Estimated Glomerular Filtration Rate (calc) 102 mL/min/((173/100).m2) [facility] >59 " creatinine, serum 1.01 mg/dL [facility] 0.76-1.27 " urea nitrogen, blood 7 mg/dL [facility] 6-20 " blood glucose, random 106 mg/dL [facility] 65-99 High " immature granulocytes, percentage of total cells, bloo d 0 % [facility] Not Estab. " basophil count, absolute 0.0 x10E3/uL [facility] 0.0-0.2 " Eosinophil Absolute Count 0.1 X10E3/UL [facility] 0.0-0.4 " monocyte count, blood, automated 0.5 X10E3/UL [facility] 0.1 -0.9 " lymphocyte count, blood, automated 1.2 X10E3/UL [facility] 0 .7-3.1 " Absolute Neutrophils 1.7 X10E3/UL [facility] 1.4-7.0 " basophils as percent of blood leukocytes 0 % [facility] Not Estab. " eosinophils as percent of blood leukocytes 1 % [facility] Not Estab. " monocytes as percent of blood leukocytes 13 % [facility] Not Estab. " lymphocytes as percent of blood leukocytes 35 % [facility] Not Estab. " neutrophils as percent of blood leukocytes 51 % [facility] Not Estab. " platelet count 248 X10E3/UL [facility] 150-379 " red blood cell distribution width 15.0 % [facility] 12.3- 15.4 " mean corpuscular hemoglobin concentration, RBC 34.4 G/DL [facility] 31.5-35.7 " mean corpuscular hemoglobin, RBC 31.8 pg [facility] 26.6-3 3.0 " mean corpuscular volume, RBC 93 fL [facility] 79-97 " hematocrit, blood 41.6 % [facility] 37.5-51.0 " hemoglobin, blood 14.3 g/dL [facility] 13.0-17.7 " erythrocyte (RBC) count 4.49 X10E6/UL [facility] 4.14-5.80 " leukocyte count, blood 3.5 X10E3/UL [facility] 3.4-10.8 " CD4/CD8 ratio 0.20 [facility] 0.92-3.72 Low " T-suppressor cells (CD8) as percent of blood lymphocyt es 64.4 % [facility] 12.0-35.5 High " absolute CD8 773 [facility] 109-897 " T-helper cells (CD4) as percent of blood lymphocytes 1 2.6 % [facility] 30.8-58.5 Low " T-helper cells (CD4) count 151 /UL [facility] [phone] Lo w Neisseria gonorrhoeae DNA probe Negative [facility] Negati ve " chlamydia DNA probe Negative [facility] Negative HISTORY OF IMMUNIZATIONS Date Vaccine Dose Lot Number Status flu vax completed HISTORY OF MEDICATION USE Medication Instructions Dates Provider Comments ZOLOFT 50 MG ORAL TABLET Take one tablet daily G georgealeah Vanessa Ram PROAIR HFA 108 (90 BASE) MCG/ACT INHALATION AEROSOL SO LUTION Take two puffs every 4 - 6 hours as needed Abdulaziz Quiles TOPAMAX 100 MG ORAL TABLET - Irma Quiles SERTRALINE HCL 50 MG TABLET TAKE 1 TABLET BY MOUTH EVERY DAY - Abdulaziz Quiles SULFAMETHOXAZOLE-TMP DS TABLET TAKE 1 TABLET BY MOUTH EVERY DAY Izabela Meyers MedAdherence IMIQUIMOD 5 % EXTERNAL CREAM Apply to affected area Mo n., Wed. & Fri. at bedtime; wash off in a.m. - Abdulaziz Quiles DESCOVY 200-25 MG ORAL TABLET Take one tablet by mouth once lisa y Abdulaziz Quiles PREZCOBIX 800 MG-150 MG TABLET TAKE 1 TABLET BY MOUTH EVERY DAY WITH FOOD Izabela Meyers MedAdhermimi LEVETIRACETAM 500 MG ORAL TABLET Take one tablet by mouth tw ice daily Abdulaziz Quiles SOCIAL HISTORY Date Observation Value Provider family support PT was raised by mom , dad when PT was 13, they were already . PT reports distant relationship with mom d/t lack of communication. Currently single, on and off b/f broke up last month. David Ram " tobacco use (cigarettes, cigar, chew, pipe) Curr ently David Ram " smoking status never smoker David bartlett " home/family situation, assessment Lives with cur rent partner David Ram " social history E&M Dating since 2018. S pouse/Partner/Significant Other: [facility] Amanda Tan/Terri Quiles/Mitali Huang/Joyce Brambila Rajesh Robb'Alec/Eeron Osmin . PT was raised by mom, dad when PT was 13. PT reports distant relationship with mom d/t lack of communication. Currently single, on and off b/f broke up last month. Born [place] City: [place]. 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 Sexual orientation: Sequeira. Gender identity: Male. Gender of partner(s): Male. Sexually Active: No. Identifies as sequeira male. Not currently sexually active. Dx with HIV last year, reports overall acceptance. David Ram " social history reviewed E&M reviewed today Villa Ram drug use, illicit Currently Jonathan annas Kemi " alcohol use Currently Jonathan Nj as Kemi " social history E&M Single. Spouse/Partn er/Significant Other[place] [facility] [place] Amanda Munguia CTA Js Tan/Terri Quiles/Mitali Huang/Joyce Robb'Alec/Eeron Osmin . PT was raised by mom, dad when PT was 13. PT reports distant relationship with mom d/t lack of communication. Currently single, on and off b/f broke up last month. Born [place] City: [place]. 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 Sexual orientation: Sequeira. Gender identity: Male. Gender of partner(s): Male. Sexually Active: No. Identifies as sequeira male. Not currently sexually active. Dx with HIV last year, reports overall acceptance. Jonathan cMmullen " social history reviewed E&M reviewed today Ricki Mcmullen " passive cigarette smoke exposure No Jonathan Mcmullen " if the patient is using/has used a vaping item, Current, Former, Never Used, Not asked No Jonathan Mcmullen " smoking status never smoker Jonathan Nj as Kemi time of call 08/26/2019 1:23 PM Taya schaefer drug use, illicit Currently Meeta Gardner " alcohol use Currently Meeta Gradner " social history E&M Single. Spouse/Partn er/Significant Other: [facility] [place] Amanda Ezra CTA Js Tan/Terri Quiles/Mitali Huang/Joyce Robb'Alec/Eeron Osmin . PT was raised by mom, dad when PT was 13. PT reports distant relationship with mom d/t lack of communication. Currently single, on and off b/f broke up last month. Born in [facility]. City: [place]. 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 Sexual orientation: Sequeira. Gender identity: Male. Gender of partner(s): Male. Sexually Active: No. Identifies as sequeira male. Not currently sexually active. Dx with HIV last year, reports overall acceptance. Meeta Gardner " social history reviewed E&M reviewed today Asad Gardner " sexual orientation Sequeira Meeta Humphries s " is there any chance that you could be ? No Meeta Gardner " passive cigarette smoke exposure No Meeta Gardner " if the patient is using/has used a vaping item, Current, Former, Never Used, Not asked No Meeta Gardner " smoking status never smoker Meeta Gardner " Exercise Program Referral T Meeta Gardner " Weight Management Counseling Provided T Meeta Gardner " Nutrition intervention Byron brown is there any chance that you could be ? No Meeta Gardner " passive cigarette smoke exposure No Meeta Gardner " drug use, illicit Currently Meeta Gardner " alcohol use Currently Meeta Gardner " social history E&M Single. Spouse/Partn er/Significant Other: [facility] [place] Amanda Munguia CTA Js Juanyasmany/Terri Quiles/Mitali Huang/Joyce Robb'Alec/Eeron Osmin . PT was raised by mom, dad when PT was 13. PT reports distant relationship with mom d/t lack of communication. Currently single, on and off b/f broke up last month. Born [place] City: [place]. 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 Sexual orientation: Sequeira. Gender identity: Male. Gender of partner(s): Male. Sexually Active: No. Identifies as sequeira male. Not currently sexually active. Dx with HIV last year, reports overall acceptance. Meeta Gardner " social history reviewed E&M reviewed today Asad Gardner " sexual orientation Seque[place] Meeta teran " if the patient is using/has used a vaping item, Current, Former, Never Used, Not asked No Meeta Gardner " smoking status never smoker Meeta Gardner " Exercise Program Referral Byron Gardner " Weight Management Counseling Provided Byron Gardner " Nutrition intervention Byron brown passive cigarette smoke exposure No David Ram " smoking status never smoker David bartlett " social history E&M Single. Spouse/Partn er/Significant Other: [facility] Amanda Munguia CTA Js Tan/Terri Quiles/Mitali Huang/Joyce Salmon/Julissa Solorio . PT was raised by mom, dad when PT was 13. PT reports distant relationship with mom d/t lack of communication. Currently single, on and off b/f broke up last month. Born [place] City: [place]. 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 Sexual orientation: Sequeira. Gender identity: Male. Gender of partner(s): Male. Sexually Active: No. Identifies as sequeira male. Not currently sexually active. Dx with HIV last year, reports overall acceptance. David Ram " social history reviewed E&M reviewed today Villa Ram drug use, illicit, frequency few times per month David Ram " drug use, illicit Currently David Ram " alcohol use, number maximum drinks per occasion 10-15 David Solomonodalis Ram " alcohol use, frequency few times per week Ankit rmana Ram " alcohol use Currently David Mendez Archana bartlett " sexual orientation Sequeira David Marvin jj Callabdulazizo " social history E&M Single. Spouse/Partn er/Significant Other: [facility] [place] Amanda Munguia CTA Js Britney/Terri Quiles/Mitali Huang/Joyce Robb'Alec/Eeron Osmin . PT was raised by mom, dad when PT was 13. PT reports distant relationship with mom d/t lack of communication. Currently single, on and off b/f broke up last month. Born [place] City: [place]. 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 Sexual orientation: Sequeira. Gender identity: Male. Gender of partner(s): Male. Sexually Active: No. Identifies as sequeira male. Not currently sexually active. Dx with HIV last year, reports overall acceptance. Davidisela Ram " social history reviewed E&M reviewed today Villa ortiz Vanessa Ram " passive cigarette smoke exposure No David Vanessa Ram " smoking status never smoker David Solomonodalis bartlett time of call 06/15/2018 2:28 PM Taya schaefer social history reviewed E&M reviewed today Sylvia Decker " social history E&M Single. Spouse/Partn er/Significant Other: [facility] [place] Amanda Munguia CTA Js Tan/Terri Quiles/Mitali Huang/Joyce Robb'Alec/Eeron Osmin . PT was raised by mom, dad when PT was 13. PT reports distant relationship with mom d/t lack of communication. Currently single, on and off b/f broke up last month. Born [place] City: [place]. 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 Gender identity: Male. Gender of partner(s): Male. Sexually Active: No. Identifies as sequeira male. Not currently sexually active. Dx with HIV last year, reports overall acceptance. Isabelle Shrewsbury " Suicide Addendum Question 2, feeling hopeless No Isabelle Shrewsbury " Suicide Addendum Question 6, intend to act No Isabelle Shrewsbury " Suicide Addendum Question 5, means and availabil ity No Isabelle Shrewsbury " Suicide Addendum Question 4, plan for suicide No Isabelle Shrewsbury " Suicide Addendum Question 11, unusual risks No Isabelle Shrewsbury " Suicide Addendum Question 10, use of alcohol or non-prescription drugs Yes Isabelle Shrewsbury " Suicide Addendum Question 9, attempted suicide b efore No Isabelle Shrewsbury " Suicide Addendum Question 1, thoughts of harming yourself No Isabelle Espinozaale " drug use, illicit, frequency few times per month Isabellemarcell DorseyShrewsbury " drug use, illicit, drug of choice cocaine Isabelle Espinozaale " drug use, illicit Currently Isabelle Espinozaale " alcohol use, frequency few times per week Isabelle Dorseysdale " alcohol use Currently Isabelle Espinozaale " smoking status never smoker Isabelle Decker " social history - sexual practice Identif ies as sequeira male. Not currently sexually active. Dx with HIV last year, reports overall acceptance. 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 PT reports distant relationship with mom d/t lack of communication. Currently single, on and off b/f broke up last month. Isabelle Decker " home/family situation, assessment Lives at home with mom, 7 months, distant relationship with mom Isabelle Decker Exercise Program Referral Byron chow " Weight Management Counseling Provided Byron Quiles " Nutrition intervention Byron toth " drug use, illicit no Mitali Nichols " alcohol use yes Mitali Nichols " social history reviewed E&M reviewed today Francesco Nina " passive cigarette smoke exposure No Mitali Nichols " smoking status current every day smoker Mitali Nichols Exercise Program Referral Byron chow " Weight Management Counseling Provided Byron Quiles " Nutrition intervention Byron Pro ons " sex at Male Nelsy Mota " social history reviewed E&M reviewed today Nikole Mota " drug use, illicit no Nelsy singh " alcohol use yes Nelsy Nakul " passive cigarette smoke exposure No Nelsy Nakul " smoking status current every day smoker Steff Mota FUNCTIONAL STATUS No Information Available MENTAL STATUS Date Observation Value Provider mental status assessment, judgment poor David Leoz Callizo " insight (mental status exam) poor Mickey llermo Leoz Callizo " Mental Status Exam: intelligence adequat e fund of information, intact memory processes, oriented to person, oriented to place, oriented to time, oriented to situation, oriented to reality David Leoz Callizo " hallucinations No David Leoz C allizo " thought content (mental status exam) (E&M) lucid David Leoz Callizo " mental status assessment, process able to abstra ct, goal-directed, logical David Leoz Callizo " mental status assessment, sensorium alert, atten tive, clear David Leoz Callizo " affect (mental status exam) congruent, e uthymic, normal intensity, normal range David Leoz Callizo " mood (mental status exam) depressed, pleasant Gu illermo Leoz Callizo " mental status assessment, speech activit y normal flow, normal pace, normal pressure, normal rate, normal tone, normal volume, spontaneous David Leoz Callizo " mental status assessment, motor activity normal gait, normal posture David Leoz Callizo " behavior (mental status exam) appropriat e, candid, cooperative, good eye contact, polite, responsive David Leoz Callizo " mental appearance (mental status exam) a dequate hygiene, appropriate dress, looks like stated age, neat David Leoz Callizo assessment of mood and affect E&M no rajeev Quiles " Generalized Anxiety Disorder Questionnaire - Que stion 2 0 Jonathan Rivera Kemi " Generalized Anxiety Disorder Questionnaire - Que stion 1 0 Jonathan Rivera Kemi assessment of mood and affect E&M no agitation Abdulaziz Veramons " Generalized Anxiety Disorder Questionnaire - Que stion 2 0 Meeta Gardner " Generalized Anxiety Disorder Questionnaire - Que stion 1 0 Meeta Gardner assessment of mood and affect E&M no agitation Abdulaziz Quiles " Generalized Anxiety Disorder Questionnaire - Que stion 2 0 Meeta Gardner " Generalized Anxiety Disorder Questionnaire - Que stion 1 0 Meeta Gardner mental status assessment, judgment poor David Leoz Callizo " insight (mental status exam) poor Mickey llermo Leoz Callizo " Mental Status Exam: intelligence adequat e fund of information, intact memory processes, oriented to person, oriented to place, oriented to time, oriented to situation, oriented to reality David Leoz Callizo " hallucinations No David Leoz C allizo " thought content (mental status exam) (E&M) lucid David Leoz Callizo " mental status assessment, process able to abstra ct, goal-directed, logical David Leoz Callizo " mental status assessment, sensorium alert, atten tive, clear David Leoz Callizo " affect (mental status exam) congruent, e uthymic, normal intensity, normal range David Leoz Callizo " mood (mental status exam) depressed, pleasant Gu illermo Leoz Callizo " mental status assessment, speech activit y normal flow, normal pace, normal pressure, normal rate, normal tone, normal volume, spontaneous David Leoz Callizo " mental status assessment, motor activity normal gait, normal posture David Leoz Callizo " behavior (mental status exam) appropriat e, candid, cooperative, good eye contact, polite, responsive David Leoz Callizo " mental appearance (mental status exam) a dequate hygiene, appropriate dress, looks like stated age, neat David Leoz Callizo mental status assessment, judgment poor David Leoz Callizo " insight (mental status exam) poor Mickey llermo Leoz Callizo " Mental Status Exam: intelligence adequat e fund of information, intact memory processes, oriented to person, oriented to place, oriented to time, oriented to situation, oriented to reality David Leoz Callizo " hallucinations No David Mendez C allizo " thought content (mental status exam) (E&M) lucid David Mendez Callizo " mental status assessment, process able to abstra ct, goal-directed, logical David Mendez Callizo " mental status assessment, sensorium alert, atten tive, clear David Leoz Callizo " affect (mental status exam) congruent, e uthymic, normal intensity, normal range David Leoz Callizo " mood (mental status exam) depressed, pleasant Gu illermo Jyotioz Callizo " mental status assessment, speech activit y normal flow, normal pace, normal pressure, normal rate, normal tone, normal volume, spontaneous David Leoz Callizo " mental status assessment, motor activity normal gait, normal posture Davidangel Mendez Callizo " behavior (mental status exam) appropriat e, candid, cooperative, good eye contact, polite, responsive David Mendez Callizo " mental appearance (mental status exam) a dequate hygiene, appropriate dress, looks like stated age, neat David Mendez Callizo " anxiety irritability David Mendez C allizo mood (mental status exam) depressed, pleasant Sa rah Shrewsbury " delusion No Isabelle Shrewsbury assessment of mood and affect E&M no agitation Abdulaziz Quiles mental status assessment, judgment good Isabelle Shrewsbury " insight (mental status exam) good Shon ah Shrewsbury " Mental Status Exam: intelligence adequat e fund of information, intact memory processes, oriented to person, oriented to place, oriented to time, oriented to situation, oriented to reality Isabelle Shrewsbury " hallucinations No Isabelle Shrewsbury " thought content (mental status exam) (E&M) lucid Isabelle Shrewsbury " mental status assessment, process able to abstra ct, goal-directed, logical Isabelle Shrewsbury " mental status assessment, sensorium alert, atten tive, clear Isabelle Shrewsbury " affect (mental status exam) congruent, e uthymic, normal intensity, normal range Isabelle Shrewsbury " mental status assessment, speech activit y normal flow, normal pace, normal pressure, normal rate, normal tone, normal volume, spontaneous Isabelle Shrewsbury " mental status assessment, motor activity normal gait, normal posture Isabelle Decker " behavior (mental status exam) appropriat e, candid, cooperative, good eye contact, polite, responsive Isabelle Decker " mental appearance (mental status exam) a dequate hygiene, appropriate dress, looks like stated age, neat Isabelle Decker Generalized Anxiety Disorder Questionnaire - Que stion 2 0 Mitali Nichols " Generalized Anxiety Disorder Questionnaire - Que stion 1 0 Mitali Nichols assessment of mood and affect E&M no agitation Abdulaziz Quiles " Generalized Anxiety Disorder Questionnaire - Que stion 2 0 Nelsy Nakul " Generalized Anxiety Disorder Questionnaire - Que stion 1 0 Nelsy Nakul MEDICAL EQUIPMENT No Information Available FAMILY HISTORY No Information Available INSURANCE PROVIDERS Payer name Policy type / Coverage type Covered part y ID [place] 0- 100% Other [id number] [place] 0- 100% Other [place] [facility] [employer] ) Commercial insurance 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 Metabolic Panel (14) CBC With Differential/Platel et CD4/CD8 Ratio Profile RNA, Real Time PCR (Graph) RPR, Rfx Qn RPR/Confirm TP Comp. Metabolic Panel (14) CBC With Differential/Platel et CD4/CD8 Ratio Profile RNA, Real Time PCR (Graph) RNA, Real Time PCR (Graph) HSV Culture and Typing Chlamydia/GC Amplification ( Urine) HBsAg Screen HCV Antibody Lipid Panel RPR, Rfx Qn RPR/Confirm TP Comp. Metabolic Panel (14) CBC With Differential/Platel et CD4/CD8 Ratio Profile RNA, Real Time PCR (Graph) RPR, Rfx Qn RPR/Confirm TP Comp. Metabolic Panel (14) CBC With Differential/Platel et CD4/CD8 Ratio Profile RNA, Real Time PCR (Graph) HIV- GS Archive RPR, Rfx Qn RPR/Confirm TP Comp. Metabolic Panel (14) CBC With Differential/Platel et CD4/CD8 Ratio Profile Lipid Panel RNA, Real Time PCR (Graph) Comp. Metabolic Panel (14) Chlamydia/GC Amplification QuantiFERON TB Gold (In Tube ) GenoSure PRIme(SM) Toxoplasma gondii Ab, IgG, Q n RPR RNA, Real Time PCR (Graph) HLA [id number] Test HIV 1/2 ANTIGEN/ANTIBODY, FO URTH GENERATION W/RFL HCV Antibody HBsAg Screen Hep B Surface Ab Hep B Core Ab, Tot Hep A Ab, Total Comp. Metabolic Panel (14) Chlamydia/GC Amplification CBC With Differential/Platel et CD4/CD8 Ratio Profile - - Est Patient Exp Problem - 99 213 Est Patient Exp Problem - 99 213 Behavioral Health - Psychiat ry Est Patient Exp Problem - 99 213 Xray - Chest - 2 Views - InH ouse Behavioral Health - Psychiat ry Est Patient Exp Problem - 99 213 Prescription Assistance (HIV - URGENT) Vision Est Patient Exp Problem - 99 213 Urine Drug Screen - In House Diagnostic evaluation with m edical - 02216 Integrated Behavioral Health Assessment (IB) Diagnostic evaluation (no me dical) - [address] [facility] Assessment - Consulta nt Behavioral Health - Psychiat ry Est Patient Exp Problem - 99 213 Behavioral Health - Psychiat ry New Patient Exp Problem - 99 202 Primary Care - Service Plann ing Comprehensive Primary Care - Assesment-Com prehensive [facility] Primary Care Medical Case Ma nagement Vision Behavioral Health - Psychiat ry Handling of specimen for tra nsfer Venipuncture HISTORY OF PROCEDURES Procedure Date Procedure Name Provider Procedure Notes Status Urine Drug Screen - In House David Mendez Callewa completed Diagnostic evaluation with medical - [id number] David cortez Callizo completed Diagnostic evaluation (no medical) - [id number] Isabelle espinoza completed [facility] 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
--- OUTSIDE RECORDS SUMMARY | 2019-12-14 15:45 | XMS REPORT | Continuity of Care Document ---
Author Author [facility] t Organization [facility] Address [address] [place] [address] Phone Unavailable Care Team Providers Care Marriage And Family Therapist Name Role Phone NONSTAFF PCP Unavailable David Baez Attphys GardnerMeeta jang Attphys Unavailable QuilesAbdulaziz jung Attphys Bindu Cheng Attphys [phone] Paola Echevarria Attphys Unavailable Rivera KemiJonathan ramos Attphys Unavailable Amanda Munguia Attphys Unavailable Wehmeyer MedAdherence,, Jazzy Attphys Unavailsaroj e Jay Quiros Attphys Unavailable Adams MedAdherence, Nevin Attphys Unavailable Luigi MedAdherence, Izabela Attphys Unavai lable Thuan-Magaña, Taya Attphys Unavailable Status, Fax Attphys Unavailable Douglas Stallings Attphys Unavailable Suero, Thida Attphys Herminia Bejarano Attphys Phyllis Boyd Attphys Talamantes, Dena Attphys Unavailable Campbell MedAdherence,, Nique Attphys Unavailable Frey, Morlin Attphys Unavailable BanksMaldonado silva Attphys Unavailable Ann Marie Watkins Attphys Unavailable Desktop, [facility] Care Coordination Attphys Unavaila padmini SUERO, OVI Attphys Unavailable Fidencio Augustine, Christine Attphys Unavailable Shayna Montenegro Attphys Unavailable Bridget Taylor Attphys Unavailable Peggs MedAdherence, Katey Attphys Unavailab Leoncio Nieto Attphys Unavailable Marina, Konstantin Attphys Unavailable Chester, Cheli Attphys Unavailable Figueroa, Jesseline Attphys Unavailable Kimball, Isabelle Attphys Lauro Nichols Attphys Unavailable Bracco, Angelique Attphys Unavailable Farhan, Venice Attphys Unavailable Nelsy Mota Attphys Ramirez, Adelfo Attphys Unavailable ESTHER, S AMBICA Attphys Unavailable Harp, Anne Attphys Unavailable Rachel ONEAL Attphys Unavailable SINGH, RICHARD MARY Attphys Unavailable Yasemin RODRIGUEZ ONIEL Admphys Unavailable TREVON, ABID FEROZE Admphys Unavailable QuilesAbdulaziz jung Unavailable Vanessa Callabdulazizo, David Unavailable Kimball, Isabelle Unavailable Harp, Anne Unavailable Unavailable Payers Payer Name Policy Type Policy Number Effective Date Expiration Date Jacki [place] 0- 100% 11 [id number] 2019 00:00:00 2019-09 00:00:00 [facility] [id number] 2018 00:00: 00 [facility] [place] 0- 100% CI [id number] 2017 00:00:00 2018-04 00:00:00 [facility] [place] 0- 100% CI [id number] 2017 00:00:00 2017-05 00:00:00 [facility] [place] 0- 100% 11 [id number] 2017 00:00:00 2018-02 00:00:00 [facility] Choice Excha [id number] [facility] Problems Condition Name Condition Details Condition Category Status Onset Date Resolution Date Last Treatment Date Treating Clinician Comments Source Shortness of breath (SOB) Condition Active 2019-11-16 00: 00:00 2019-11-22 10:47:41 Abdulaziz Quiles anxiety-induced [facility] STIMULANT USE DISORDER, COCAINE, MODERATE Condition Active 2018-08-04 00:00:00 2019-07-13 11:31:43 [facility] INTOXICATION, COCAINE, W/OUT P ERCEPT DISTURBNCS, W/ USE DISORD, MODERATE Condition Active 2018-07-05 00:00:00 2019-07-13 11:31:43 Vanessa [facility] ALCOHOL USE DISORDER, SEVERE Condition Active 2018-07-05 00:00:00 2019-07-13 [facility]31[facility], MAJOR, RECURRENT EPISODE, MODERATE Condition Active 2018-03-25 00:00:00 2019-07-13 11:31:43 KimballIsabelle [facility] Seizure disorder Condition Active 2018-01-25 00:00:00 2 10:50:01 Abdulaziz Quiles [facility] Mood disorder Condition Active 2018-01-25 00:00:00 2017 10:50:01 Abdulaziz Quiles [facility] HIV infection Condition Active 2017-12-22 00:00:00 2017 10:50:01 Anne Harp [facility] SOB (shortness of breath) SOB (shortness of breath) Disease Ac tive 2016-12-07 00:00:00 [facility] Diarrhea Diarrhea Disease Active 2016-12-07 00:00:00 [facility] HIV (human immunodeficiency virus infection) HIV (wilber n immunodeficiency virus infection) Disease Active 2016-12-07 00:00:00 [facility] Pancreatitis Pancreatitis Disease Active 2016-06-11 00:00:00 [facility] Obesity (BMI 30.0-34.9) Obesity (BMI 30.0-34.9) Disease Active 2016-06-11 00:00:00 Overview: BMI 34.7 [facility] Stress at work Stress at work Disease Active 2016-06-11 00:00:00 [facility] Pancreatitis, acute Pancreatitis, acute Disease Active 2014-09-23 00:00 :[facility] Leucocytosis Leucocytosis Disease Active 2014-09-23 00:00:00 [facility] Abdominal pain Abdominal pain Disease Active 2014-09-23 00:00:00 [facility] Nausea & vomiting Nausea & vomiting Disease Active 2014-09-23 00:00:00 [facility] Diarrhea Diarrhea Disease Active 2014-09-23 00:00:00 [facility] LFTs abnormal LFTs abnormal Disease Active 2014-06-19 00:00:00 [facility] Obesity Obesity Disease Active 2014-06-15 00:00:00 [facility] Pancreatitis, recurrent Pancreatitis, recurrent Disease Active Overview: > 4 episodes [facility] Diarrhea of presumed infectious origin Diarrhea of presumed infectious origin Disease Active [facility] 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 Disease Active [facility] Shigella gastroenteritis Shigella gastroenteritis Disease Active [facility] 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 Disease Active [facility] Generalized seizure Generalized seizure Disease Active [facility] True-positive serological test for syphilis True-posit elizabeth serological test for syphilis Disease Active [facility] Seizure Seizure Disease Active [facility] Acute intractable headache Acute intractable headache Disease Active [facility] History of Past Illness Condition Name Condition Details Condition Category Status Onset Date Resolution Date Last Treatment Date Treating Clinician Comments Source Penile lesion Condition Inactive 2019-07-13 00:00:00 407 00:00:00 2019-08-16 15:00:16 Abdulaziz Quiles [facility] Transaminases, serum, elevated Condition Inactive 01-25 00:00:00 2019-07-18 00:00:00 2019-07-18 13:49:20 Abdulaziz Quiles [facility] Penile wart Condition Inactive 2018-01-25 00:00:00 00:00:00 2019-07-18 13:49:20 Abdulaziz Quiles [facility] STIMULANT USE DISORDER, COCAINE, MILD Condition Inactive 2018-07-12 00:00:00 2019-07-13 00:00:00 2019-07-13 12:01:56 QuilesAbdulaziz jung [facility] Dysuria Condition Inactive 2018-01-25 00:00:00 2018-03-23 00:00:00 2018-03-23 08:36:49 Abdulaziz Quiles [facility] Pre-procedural laboratory examination Condition Inactive 2017-12-22 00:00:00 2018-01-27 00:00:00 2018-01-27 10:51:27 [facility] Allergies, Adverse Reactions, Alerts Allergy Name Allergy Type Status Severity Reaction(s) Onset Date Inacti ve Date Treating Clinician Comments Source No Known Allergies DA Active U 2019-03-30 00:00:00 [facility] TIVICAY Allergy Inactive 2018-01-25 00:00:00 [facility] TRIUMEQ Drug allergy (disorder) Active rash 2018-01-25 00:00:00 [facility] Lamivudine Allergy to Substance Active Moderate 2017-09-30 00:00:[address] [facility] Abacavir Allergy to Substance Active Moderate 2017-09-30 00:00:00 [facility] Dolutegravir Allergy to Substance Active Moderate 2017-09-30 00:00 :00 [facility] No Known Allergies DA Active U 2017-05-03 00:00:00 [facility] Family History Family Member Diagnosis Comments Start Date Stop Date Source Maternal grandfather Stroke [facility] Natural mother Arthritis [facility] Paternal grandfather [facility] Paternal grandfather [facility] Paternal grandfather [facility] Social History Social Habit Start Date Stop Date Quantity Comments Source [facility] Health social history reviewed E&M 2019-12-01 10:24:31 2019-12-01 10:24 :31 reviewed today [facility] social history E&M 2019-12-01 10:24:31 2019-12-01 10:24:31 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 Spouse/Partner/Significant Other: [facility] Kim Posadasrejj MARREROAmybryan Britney/Terri Quiles/Mitali Huang/Joyce Salmon/Julissa Solorio. PT was raised by mom, dad when PT was 13. PT reports distant relationship with mom d/t lack of communication. Currently single, on and off b/f broke up last month. Born in [facility] [place]. City: [place]. 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 Sexual orientation: Sequeira. Gender identity: Male. Gender of partner(s): Male. Sexually Active: No. Identifies as sequeira male. Not currently sexually active. Dx with HIV last year, reports overall acceptance. [facility] family support 2019-12-01 10:24:31 2019-12-01 10:24:31 PT was r aised by mom, dad when PT was 13, they were already . PT reports distant relationship with mom d/t lack of communication. Currently single, on and off b/f broke up last month. [facility] home/family situation, assessment 2019-12-01 10:24:31 2019-12-01 10:24:31 Lives with current partner [facility] tobacco use (cigarettes, cigar, chew, pipe) 2019-12-01 10:24 :31 2019-12-01 10:24:31 Currently [facility] drug use, illicit 2019-11-16 11:56:14 2019-11-16 11:56:14 Currently [facility] alcohol use 2019-11-16 11:56:14 2019-11-16 11:56:14 Currently [facility] passive cigarette smoke exposure 2019-11-16 11:56:14 2019-11-16 11:56 :14 No [facility] if the patient is using/has used a vapin g item, Current, Former, Never Used, Not asked 2019-11-16 11:56:14 2019-11-16 11:56:14 No L [facility] time of call 2019-08-26 13:23:34 2019-08-26 13:23:34 08/26/2019 1:23 PM [facility] sexual orientation 2019-08-10 10:50:56 2019-08-10 10:50:56 Sequeira [facility] is there any chance that you could be ? 2019-08-10 1 0:50:56 2019-08-10 10:50:56 No [facility] Alcohol intake 2018-10-13 00:00:00 2018-10-13 00:00:00 Current drinker of alcohol (finding) [facility] drug use, illicit, frequency 2018-07-05 13:09:37 2018-07-05 13:0 9:37 few times per month [facility] alcohol use, frequency 2018-07-05 13:09:37 2018-07-05 13:09:37 f ew times per week [facility] alcohol use, number maximum drinks per occasion 2018-07-05 1 3:09:37 2018-07-05 13:09:37 10-15 [facility] Suicide Addendum Question 2, feeling hopeless 2018-03-22 15: 56:18 2018-03-22 15:56:18 No [facility] Suicide Addendum Question 6, intend to act 2018-03-22 15:56: 18 2018-03-22 15:56:18 No [facility] Suicide Addendum Question 5, means and availability 15:56:18 2018-03-22 15:56:18 No [facility] Suicide Addendum Question 4, plan for suicide 2018-03-22 15: 56:18 2018-03-22 15:56:18 No [facility] Suicide Addendum Question 11, unusual risks 2018-03-22 15:56 :18 2018-03-22 15:56:18 No [facility] Suicide Addendum Question 10, use of alcohol or non-pr escription drugs 2018-03-22 15:56:18 2018-03-22 15:56:18 Yes [facility] Suicide Addendum Question 9, attempted suicide before 2017-05 15:56:18 2018-03-22 15:56:18 No [facility] Suicide Addendum Question 1, thoughts of harming yourself 28-03-12 15:56:18 2018-03-22 15:56:18 No [facility] drug use, illicit, drug of choice 2018-03-22 15:56:18 2018-03-22 15:56:18 cocaine [facility] social history - sexual practice 2018-03-22 15:56:18 2018-03-22 15:56:18 Identifies as sequeira male. Not currently sexually active. Dx with HIV last year, reports overall acceptance. 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 [facility] sex at 2018-01-25 14:25:23 2018-01-25 14:25:23 Male [facility] History SDOH Food Worry 2017-05-07 00:00:00 2017-05-07 00:00:00 1 [facility] SDOH Food Scarcity 2017-05-07 00:00:00 2017-05-07 00:00:00 1 [facility] Alcohol Comment 2017-05-07 00:00:00 2017-05-07 00:00:00 socially [facility] History of tobacco use 2016-06-18 00:00:00 Current smoker [facility] Smoking Status Start Date Stop Date Source Never smoker [facility] Smokes tobacco daily (finding) 2018-03-22 15:06:23 [facility] Former smoker 2016-07-21 00:00:00 2016-07-21 00:00:00 [facility] Medications Ordered Medication Name Filled Medication Name Start Date Stop Da te Current Medication? Ordering Clinician Indication Dosage Frequency Signature (SIG) Comments Components Source ZOLOFT (SERTRALINE HCL) 50 MG TABS 2019-12-01 00:00:00 Yes David Ram 1{Tablet} 1xD Take one tablet daily [facility] PROAIR HFA (ALBUTEROL SULFATE) 108 (90 Base) MCG/ACT AERS 2019-11-16 00:00:00 Yes Abdulaziz Quiles Take two puffs every 4 - 6 hours as needed [facility] (SULFAMETHOXAZOLE-TRIMETHOPRIM) 800-160 MG TABS 2019-08-21 00:00:00 Yes Abdulaziz Quiles 1{Tablet} 1xD TAKE 1 TABLET BY MOUTH EVERY DAY [facility] PREZCOBIX (DARUNAVIR-COBICISTAT) 800-150 MG TABS 2019-07-10 00:00:00 Yes Abdulaziz Quiles 1{Tablet} 1xD TAKE 1 TABLET BY MOUTH EVERY DAY WITH FOOD [facility] TOPAMAX (TOPIRAMATE) 100 MG TABS 2019-07-19 00:00:00 2019-11 00:00:00 No 1{Tablet} 2xD [facility] (SERTRALINE HCL) 50 MG TABS 2018-05-25 00:00:00 2019-07-13 00:00:00 No Abdulaziz Quiles 1{Tablet} 1xD TAKE 1 TABLET BY MOUTH EVERY DAY [facility] DESCOVY (EMTRICITABINE-TENOFOVIR AF) 200-25 MG TABS 01-25 00:00:00 Yes Abdulaziz Quiles Take one tablet by mouth once daily [facility] (LEVETIRACETAM) 500 MG TABS 2018-01-25 00:00:00 Yes Abdulaziz Quiles Take one tablet by mouth twice daily [facility] (IMIQUIMOD) 5 % CREA 2018-01-25 00:00:00 2018-05-17 00:00:00 No Abdulaziz Quiles Apply to affected area Mon., Wed. & Fri. at bed time; wash off in a.m. [facility] Acetaminophen With Codeine (Tylenol With Codeine #3 Ta blet) 1 Each Tablet Acetaminophen With Codeine (Tylenol With Codeine #3 Tablet) 1 Each Tablet 2018-01-13 00:00:00 Yes Julián Prescottz It Architecture Consultant 300 Every 4 Hours as needed for Jose Daniel [facility] Ciprofloxacin Hcl (Cipro) 500 Mg Tablet, 500 Mg Oral C iprofloxacin Hcl (Cipro) 500 Mg Tablet, 500 Mg Oral 2018-01-13 00:00:00 2019-06-01 00:00:00 No Julián Fang Lagunas [employer] Consultant [address] [facility] Metronidazole (Flagyl) 500 Mg Tablet, 500 Mg Oral Metr onidazole (Flagyl) 500 Mg Tablet, 500 Mg Oral 2018-01-13 00:00:00 2019-06-01 00:00:00 No Arturo Fang Lagunas It [employer] Consultant [address] [facility] Ondansetron Hcl (Zofran*) 4 Mg Tablet, 4 Mg Sublingual Ondansetron Hcl (Zofran*) 4 Mg Tablet, 4 Mg Sublingual 2018-01-13 00:00:00 2019-06-01 00:00:00 No Julián Lagunas Np 4 Every 6 Hours as needed for Nausea [facility] Levetiracetam (Keppra) 500 Mg Tablet, 500 Mg Oral Leve tiracetam (Keppra) 500 Mg Tablet, 500 Mg Oral 2017-08-17 00:00:00 2019-06-02 00:00:00 No Kianna Gomes Md [address] [facility] sertraline (ZOLOFT) 50 mg tablet 2017-06-18 00:00:00 Yes Panic attack 50mg QD Take 1 tablet by mouth daily. [facility] clonazePAM (KLONOPIN) 0.5 mg tablet 2017-06-18 00:00:00 Yes Panic attack .5mg Take 1 tablet by mouth 2 times daily as needed for Anx iety. [facility] omeprazole (PRILOSEC) 20 mg delayed release capsule 06-18 00:00:00 Yes Hematemesis with nausea 20mg QD Take 1 capsule by mouth da garrick. [facility] caxoqvlw-ujvpgsdimrjj-hwblcqu (TRIUMEQ) 600-50-300 mg per ta blet 2017-05-21 00:00:00 Yes AIDS 1{tbl} QD Take 1 tab let by mouth daily Stop Gutierrez and Tibee.. [facility] traMADol (ULTRAM) 50 mg tablet 2016-12-12 00:00:00 Yes Diarrhea of infectious origin 50mg Take 1 tablet by kelley th every 8 hours as needed for Pain. [facility] pantoprazole (PROTONIX) 40 MG tablet 2016-06-17 00:00:00 Margarito teran 40mg QD Take 1 tablet (40 mg total) by mouth daily. [facility] Darunavir/Cobicistat (Prezcobix 800 Mg-150 Mg Tablet) 1 Each Tablet Darunavir/Cobicistat (Prezcobix 800 Mg-150 Mg Tablet) [address] [facility] Levetiracetam 1,000 Mg Tablet Levetiracetam 1,000 Mg Tablet Yes 1000 Twice A Day [facility] Levetiracetam (Keppra) 750 Mg Tablet Levetiracetam (Keppra) 750 Mg Tablet Yes [facility] Sertraline Hcl 50 Mg Tablet Sertraline Hcl 50 Mg Tablet Yes 50 Daily [facility] Tivicay 50 Mg Tivicay 50 Mg Yes [address] [facility] Topiramate (Topamax) 50 Mg Tablet Topiramate (Topamax) 50 Mg Tablet Yes [address] [facility] Topiramate (Topamax) 200 Mg Tablet Topiramate (Topamax) [address] [facility] Sumatriptan Succinate 25 Mg Tablet, 25 Mg Oral Sumatri ptan Succinate 25 Mg Tablet, 25 Mg Oral 2019-06-02 00:00:[address] [facility] Promethazine Hcl 25 Mg Tablet, 25 Mg Oral Promethazine Hcl 25 Mg Tablet, 25 Mg Oral 2019-06-01 00:00:[address] [facility] Immunizations Ordered Immunization Name Filled Immunization Name Date Status Comments Source flu vax 2018-01-20 15:13:29 Completed Replaced by [facility] Influenza Vaccine, Seasonal, Injectable 2017-05-07 00:00:0 0 Completed [facility] Vital Signs Vital Name Observation Time Observation Value Comments Source oxygen saturation, oximetry 2019-11-16 11:56:14 97 % [facility] blood pressure, diastolic 2019-11-16 11:56:14 74 mm[Hg] [facility] blood pressure, systolic 2019-11-16 11:56:14 136 mm[Hg] [facility] pulse rate 2019-11-16 11:56:14 80 /min [facility] temperature site 2019-11-16 11:56:14 temporal [facility] temperature in centigrade E&M 2019-11-16 11:56:14 36.2 Claudia [facility] weight E&M 2019-11-16 11:56:14 266 [lb_av] [facility] weight in kilograms E&M 2019-11-16 11:56:14 120.91 kg [facility] blood pressure, diastolic 2019-08-10 10:50:56 63 mm[Hg] [facility] blood pressure, systolic 2019-08-10 10:50:56 110 mm[Hg] [facility] pulse rate 2019-08-10 10:50:56 66 /min [facility] oxygen saturation, oximetry 2019-08-10 10:50:56 97 % [facility] temperature E&M 2019-08-10 10:50:56 98.6 [degF] [facility] weight E&M 2019-08-10 10:50:56 266 [lb_av] [facility] weight in kilograms E&M 2019-08-10 10:50:56 120.91 kg [facility] temperature site 2019-08-10 10:50:56 oral Lega cy [facility] height in centimeters E&M 2019-08-10 10:50:56 187.96 cm [facility] blood pressure, diastolic 2019-07-13 09:44:33 71 mm[Hg] [facility] blood pressure, systolic 2019-07-13 09:44:33 114 mm[Hg] [facility] oxygen saturation, oximetry 2019-07-13 09:44:33 96 % [facility] pulse rate 2019-07-13 09:44:33 77 /min [facility] E&M 2019-07-13 09:44:33 98.2 [degF] [facility] weight E&M 2019-07-13 09:44:33 266 [lb_av] [facility] weight in kilograms E&M 2019-07-13 09:44:33 120.91 kg [facility] temperature site 2019-07-13 09:44:33 oral Lega cy [facility] height in centimeters E&M 2019-07-13 09:44:33 187.96 cm [facility] blood pressure, diastolic 2018-08-04 10:22:52 84 mm[Hg] [facility] blood pressure, systolic 2018-08-04 10:22:52 132 mm[Hg] [facility] pulse rate 2018-08-04 10:22:52 80 /min [facility] weight E&M 2018-08-04 10:22:52 268 [lb_av] [facility] weight in kilograms E&M 2018-08-04 10:22:52 121.82 kg [facility] height in centimeters E&M 2018-08-04 10:22:52 187.96 [facility] blood pressure, diastolic 2018-07-05 13:09:37 82 mm[Hg] [facility] blood pressure, systolic 2018-07-05 13:09:37 129 mm[Hg] [facility] pulse rate 2018-07-05 13:09:37 80 /min [facility] weight E&M 2018-07-05 13:09:37 269.20 [lb_av] [facility] weight in kilograms E&M 2018-07-05 13:09:37 122.36 kg [facility] height in centimeters E&M 2018-07-05 13:09:37 187.96 cm [facility] oxygen saturation, oximetry 2018-03-22 15:06:23 98 % [facility] respiratory rate E&M 2018-03-22 15:06:23 16 /min [facility] pulse rate 2018-03-22 15:06:23 78 /min [facility] blood pressure, diastolic 2018-03-22 15:06:23 82 mm[Hg] [facility] blood pressure, systolic 2018-03-22 15:06:23 135 mm[Hg] [facility] temperature E&M 2018-03-22 15:06:23 98.2 [degF] [facility] weight E&M 2018-03-22 15:06:23 266.13 [lb_av] [facility] weight in kilograms E&M 2018-03-22 15:06:23 120.97 kg [facility] temperature site 2018-03-22 15:06:23 oral Lega [facility] height in centimeters E&M 2018-03-22 15:06:23 187.96 cm [facility] oxygen saturation, oximetry 2018-01-25 14:25:23 97 % [facility] pulse rate 2018-01-25 14:25:23 82 /min [facility] blood pressure, diastolic 2018-01-25 14:25:23 81 mm[Hg] [facility] blood pressure, systolic 2018-01-25 14:25:23 131 mm[Hg] [facility] temperature E&M 2018-01-25 14:25:23 98.2 [degF] Leg[facility] weight E&M 2018-01-25 14:25:23 264 [lb_av] [facility] weight in kilograms E&M 2018-01-25 14:25:23 120 kg [facility] height in centimeters E&M 2018-01-25 14:25:23 187.96 cm [facility] temperature site 2018-01-25 14:25:23 oral Lega cy [facility] Procedures Procedure Date / Time Performed Performing Clinician [facility] e Computed tomography of brain without radiopaque contrast 00:00:00 OVI SUERO [facility] X-ray of chest, two views 2019-05-30 00:00:00 OVI SUERO [facility] Computed tomography of abdomen and pelvis with contrast 2018 00:00:[address] [facility] Urine Drug Screen - In House 2018-07-05 14:27:56 Ann Marie Baez [facility] Diagnostic evaluation with medical - [id number] 2018-07-05 14:26: 40 David Baez [facility] Diagnostic evaluation (no medical) - [id number] 2018-03-25 17:53:52 Isabelle Munguia [facility] IBH Assessment - Explosive Ordnance Manager 2018-03-25 17:53:52 Shon Decker [facility] Primary Care - Service Planning Comprehensive 2018-01-25 17:22:4 5 Dacia [facility] - Assesment-Comprehensive [facility] [facility] 2018-01-25 17 :22:45 Dacia Angelique [facility] Medical Case Management 2018-01-25 17:22:45 Dacia [facility] Venipuncture 2017-12-22 09:50:48 Abdulaziz Quiles [facility] Plan of Care Planned Activity Planned Date Details Comments Source Future Scheduled Test 2020-02-09 00:00:00 IMM Influenza Seas onal Feb to July (>/= 19 yrs) [code = IMM Influenza Seasonal Feb to July (>/= 19 yrs)] [facility] Encounters Start Date/Time End Date/Time Encounter Type Admission Type Attendi [facility] Care Department Encounter ID Source 2016-12-10 16:37:[address] [facility] [id number] [facility] 2016-12-09 22:47:[address] [facility] 10 [id number] [facility] 2016-12-09 20:30:[address] [facility] [id number] [facility] 2016-12-07 13:10:[address] [facility] [id number] [facility] 2019-12-01 00:00:00 2019-12-01 00:00:00 Office Visit David Baez [facility] Encounter/[id number] [facility] 2019-11-22 00:00:00 2019-11-22 00:00:00 Office Visit Leoncio Gardner [facility] Encounter/[id number] [facility] 2019-11-21 00:00:00 2019-11-21 00:00:00 Office Visit Leoncio Gardner [facility] Encounter/[id number] [facility] 2019-11-16 00:00:00 2019-11-16 00:00:00 Office Visit Ivan Quiles [facility] Encounter/[id number] [facility] 2019-11-16 00:00:00 2019-11-16 00:00:00 Office Visit Ivan Quiles [facility] Encounter/[id number] [facility] 2019-11-16 00:00:00 2019-11-16 00:00:00 Office Visit Abdulaziz Okeefe Sandra Hernandez, Janet Contreras Luna, Leonardo [facility] Encounter/[id number] 490 [facility] 2019-11-10 00:00:00 2019-11-10 00:00:00 Office Visit Amanda De León [facility] Encounter/[id number] [facility] 2019-11-08 00:00:00 2019-11-08 00:00:00 Office Visit Abdulaziz Okeefe MedAdherence,, Jazzy [facility] Encounter/[id number] [facility] 2019-10-17 00:00:00 2019-10-17 00:00:00 Office Visit Ishaan Wendie farnaz [facility] Encounter/[id number] [facility] 2019-10-17 00:00:00 2019-10-17 00:00:00 Office Visit Abdulaziz Okeefe MedAdherence, Nevin [facility] Encounter/[id number] [facility] 2019-09-23 00:00:00 2019-09-23 00:00:00 Office Visit Abdulaziz Okeefe MedAdherence, Izabela [facility] Encounter/[id number] [facility] 2019-08-26 00:00:00 2019-08-26 00:00:00 Office Visit Taya Pressley [facility] Encounter/[id number] [facility] 2019-08-17 00:00:00 2019-08-17 00:00:00 Office Visit Abdulaziz Okeefe MedAdhermimi, Izabela [facility] Encounter/[id number] [facility] 2019-08-10 00:00:00 2019-08-10 00:00:00 Office Visit Ivan Quiles [facility] Encounter/[id number] [facility] 2019-08-10 00:00:00 2019-08-10 00:00:00 Office Visit Ivan Quiles [facility] Encounter/[id number] [facility] 2019-08-10 00:00:00 2019-08-10 00:00:00 Office Visit Status, Fax [facility] Encounter/[id number] [facility] 2019-08-10 00:00:00 2019-08-10 00:00:00 Office Visit Status, Fax [facility] Encounter/[id number] acy [facility] 2019-08-10 00:00:00 2019-08-10 00:00:00 Office Visit Status, Fax [facility] Encounter/[id number] [facility] 2019-08-10 00:00:00 2019-08-10 00:00:00 Office Visit Abdulaziz Okeefe, Douglas [facility][id number] [facility] 2019-08-10 00:00:00 2019-08-10 00:00:00 Office Visit Ivan Quiles [facility] Encounter/[id number] [facility] 2019-08-10 00:00:00 2019-08-10 00:00:00 Office Visit Ivan Quiles [facility] Encounter/[id number] [facility] 2019-08-10 00:00:00 2019-08-10 00:00:00 Office Visit Abdulaziz Okeefe Thida Bell, Herminia Stallings, Douglas Boyd, Meeta Tang [facility] Encounter/[id number] Leg y [facility] 2019-08-09 00:00:00 2019-08-09 00:00:00 Office Visit Estela Talamantes [facility] Encounter/[id number] [facility] 2019-08-09 00:00:00 2019-08-09 00:00:00 Office Visit Estela Talamantes [facility] Encounter/[id number] [facility] 2019-07-25 00:00:00 2019-07-25 00:00:00 Office Visit Abdulaziz Okeefe MedAdherence,, Joce [facility] Encounter/[id number] [facility] 2019-07-19 00:00:00 2019-07-19 00:00:00 Office Visit Abdulaziz Okeefe MedAdhermimi,, Jazzy [facility] Encounter/[id number] [facility] 2019-07-13 00:00:00 2019-07-13 00:00:00 Office Visit Ivan Quiles [facility] Encounter/[id number] [facility] 2019-07-13 00:00:00 2019-07-13 00:00:00 Office Visit Ivan Quiles [facility] Encounter/[id number] [facility] 2019-07-13 00:00:00 2019-07-13 00:00:00 Office Visit Abdulaziz Okeefe Dunia Granados, Monika Burkett [facility] Encounter/[id number] Legac y [facility] 2019-07-11 00:00:00 2019-07-11 00:00:00 Office Visit Amanda De León [facility] Encounter/[id number] [facility] 2019-07-11 00:00:00 2019-07-11 00:00:00 Office Visit Abdulaziz Okeefe Laura [facility] Encounter/[id number] Legac y [facility] 2019-07-08 00:00:00 2019-07-08 00:00:00 Office Visit Amanda Maurice Erick [facility] Encounter/[id number] Legac y [facility] 2019-07-08 00:00:00 2019-07-08 00:00:00 Office Visit Abdulaziz Okeefe Laura [facility] Encounter/[id number] Leg y [facility] 2019-07-05 00:00:00 2019-07-05 00:00:00 Office Visit Florina Watkins [facility] Encounter/[id number] [facility] 2019-07-05 00:00:00 2019-07-05 00:00:00 Office Visit Abdulaziz Okeefe MedAdherenceNevin [facility] Encounter/[id number] [facility] 2019-07-05 00:00:00 2019-07-05 00:00:00 Office Visit Cintia negron, [facility] Care Coordination Meeta Gardner [facility] Encounter/[id number] [facility] 2019-07-05 00:00:00 2019-07-05 00:00:00 Office Visit D esktop, [facility] Care Coordination Meeta Gardner [facility] Encounter/[id number] [facility] y 2019-07-05 00:00:00 2019-07-05 00:00:00 Office Visit June Florina Maurer [facility] Encounter/[id number] 2019-07-05 00:00:00 2019-07-05 00:00:00 Office Visit Ivan Quiles [facility] Encounter/[id number] 2019-07-04 00:00:00 2019-07-04 00:00:00 Office Visit Ivan Quiles [facility] Encounter/[id number] 2019-07-04 00:00:00 2019-07-04 00:00:00 Office Visit Ivan Quiles [facility] Encounter/[id number] 2019-07-04 00:00:00 2019-07-04 00:00:00 Office Visit Ivan Quiles [facility] Encounter/[id number] 2019-07-04 00:00:00 2019-07-04 00:00:00 Office Visit Ivan Quiles [facility] Encounter/[id number] [facility] 2019-07-04 00:00:00 2019-07-04 00:00:00 Office Visit Ivan Quiles [facility] Encounter/[id number] 2019-07-04 00:00:00 2019-07-04 00:00:00 Office Visit Ivan Quiles [facility] Encounter/[id number] [facility] 2019-07-04 00:00:00 2019-07-04 00:00:00 Office Visit Amanda De León [facility] Encounter/[id number] [facility] 2019-07-04 00:00:00 2019-07-04 00:00:00 Office Visit David Ling MedAdherence,Joce [facility] Encounter/[id number] [facility] 2019-07-04 00:00:00 2019-07-04 00:00:00 Office Visit Abdulaziz Okeefe [facility] Encounter/[id number] [facility] 2019-05-30 20:49:00 2019-06-02 11:36:00 Discharged Inpatient (obs) 1 OVI SUERO [facility] [id number] [facility] 2018-12-22 00:00:00 2018-12-22 00:00:00 Office Visit Amanda De León [facility] Encounter/[id number] [facility] 2018-12-22 00:00:00 2018-12-22 00:00:00 Office Visit Amanda De León [facility] Encounter/[id number] [facility] 2018-12-18 00:00:00 2018-12-18 00:00:00 Office Visit Christine Bhardwaj [facility] Encounter/[id number] [facility] 2018-12-01 00:00:00 2018-12-01 00:00:00 Office Visit Status, Fax [facility] Encounter/[id number] [facility] 2018-11-19 00:00:00 2018-11-19 00:00:00 Office Visit Eugenio Montenegro [facility] Encounter/[id number] [facility] 2018-10-25 00:00:00 2018-10-25 00:00:00 Office Visit Bridget Taylor [facility] Encounter/[id number] [facility] 2018-10-14 00:00:00 2018-10-14 00:00:00 Office Visit David Ling Paul Conyers MedAdherKatey le [facility] Encounter/[id number] [facility] 2018-09-06 00:00:00 2018-09-06 00:00:00 Office Visit Amanda De León [facility] Encounter/[id number] [facility] 2018-08-24 21:05:00 2018-08-25 02:35:00 Departed Emergency Room 1 FINNRACHANA KING [facility] [id number] [facility] 2018-08-04 00:00:00 2018-08-04 00:00:00 Office Visit Leoncio Ram David Suero, Rocío Gray, Konstantin [facility] Encounter/[id number] [facility] 2018-07-05 00:00:00 2018-07-05 00:00:00 Office Visit Ivan Quiles [facility] Encounter/[id number] [facility] 2018-07-05 00:00:00 2018-07-05 00:00:00 Office Visit Leoncio Jacobsonewa David Gray, Konstantin [facility] Encounter/[id number] [facility] 2018-06-29 00:00:00 2018-06-29 00:00:00 Office Visit Ivan Quiles [facility] Encounter/[id number] [facility] 2018-06-21 00:00:00 2018-06-21 00:00:00 Office Visit Christine Bhardwaj [facility] Encounter/[id number] [facility] 2018-06-15 00:00:00 2018-06-15 00:00:00 Office Visit Taya Pressley [facility] Encounter/[id number] [facility] 2018-04-12 00:00:00 2018-04-12 00:00:00 Office Visit Abdulaziz Okeefe Michelle [facility] Encounter/[id number] [facility] 2018-03-22 00:00:00 2018-03-22 00:00:00 Office Visit Ivan Quiles [facility] Encounter/[id number] [facility] 2018-03-22 00:00:00 2018-03-22 00:00:00 Office Visit Keith Figueroa [facility] Encounter/[id number] [facility] 2018-03-22 00:00:00 2018-03-22 00:00:00 Office Visit Keith Figueroa [facility] Encounter/[id number] [facility] 2018-03-22 00:00:00 2018-03-22 00:00:00 Office Visit Isabelle Munguia Sandra [facility] Encounter/[id number] Replaced by [facility] 2018-03-22 00:00:00 2018-03-22 00:00:00 Office Visit Ivan Quiles ul LC [facility] Encounter/[id number] [facility] 2018-03-22 00:00:00 2018-03-22 00:00:00 Office Visit Abdulaziz Okeefe Sandra Gomez, Nicole J [facility] Encounter/[id number] Replaced by [facility] 2018-03-19 00:00:00 2018-03-19 00:00:00 Office Visit Amanda De León [facility] Encounter/[id number] [facility] 2018-01-27 00:00:00 2018-01-27 00:00:00 Office Visit Abdulaziz Okeefe Jessica [facility] Encounter/[id number] [facility] 2018-01-26 00:00:00 2018-01-26 00:00:00 Office Visit Status, Fax [facility] Encounter/[id number] [facility] 2018-01-26 00:00:00 2018-01-26 00:00:00 Office Visit Status, Fax [facility] Encounter/[id number] [facility] 2018-01-26 00:00:00 2018-01-26 00:00:00 Office Visit Status, Fax [facility] Encounter/[id number] [facility] 2018-01-25 00:00:00 2018-01-25 00:00:00 Office Visit Ivan Quiles ul LC [facility] Encounter/[id number] [facility] 2018-01-25 00:00:00 2018-01-25 00:00:00 Office Visit Ivan Quiles ul [facility] Encounter/[id number] [facility] 2018-01-25 00:00:00 2018-01-25 00:00:00 Office Visit Dania Pederson [facility] Encounter/[id number] [facility] 2018-01-25 00:00:00 2018-01-25 00:00:00 Office Visit Dania Pederson [facility] Encounter/[id number] [facility] 2018-01-25 00:00:00 2018-01-25 00:00:00 Office Visit John Real [facility] Encounter/[id number] [facility] 2018-01-25 00:00:00 2018-01-25 00:00:00 Office Visit John Real [facility] Encounter/[id number] [facility] 2018-01-25 00:00:00 2018-01-25 00:00:00 Office Visit Ivan Quiles [facility] Encounter/[id number] [facility] 2018-01-25 00:00:00 2018-01-25 00:00:00 Office Visit Abdulaziz Okeefe, Bindu Mota, Nelsy Boyd, Phyllis Patel, Taya Ramirez, Shayna Luna [facility] Encounter/[id number] Replaced by [facility] 2018-01-21 00:00:00 2018-01-21 00:00:00 Office Visit Amanda De León [facility] Encounter/[id number] [facility] 2018-01-13 15:51:00 2018-01-13 23:13:00 Departed Emergency Room 1 ESTHER PARESHBRIEN [facility] [id number] [facility] 2017-12-30 00:00:00 2017-12-30 00:00:[address] [facility] [id number] [facility] 2017-12-29 00:00:00 2017-12-29 00:00:[address] [facility] [id number] [facility] 2017-12-29 00:00:00 2017-12-29 00:00:00 Office Visit Abdulaziz Okeefe Nicole J [facility] Encounter/[id number] Replaced by [facility] 2017-12-22 00:00:00 2017-12-22 00:00:00 Office Visit Ivan Quiles [facility] Encounter/[id number] [facility] 2017-12-22 00:00:00 2017-12-22 00:00:00 Office Visit Ivan Quiles [facility] Encounter/[id number] [facility] 2017-12-22 00:00:00 2017-12-22 00:00:00 Office Visit Jacki jenniferjaneyAbdulaziz Priscilla [facility] Encounter/[id number] [facility] 2017-11-08 12:23:00 2017-11-08 14:45:00 Departed Emergency Room 1 LUCIANA ONEAL [facility] [id number] [facility] 2017-09-30 16:13:00 2017-09-30 17:51:00 Departed Emergency Room [facility] [id number] [facility] 2017-08-17 11:37:00 2017-08-17 15:00:00 Departed Emergency Room [facility] [id number] [facility] 2017-07-09 00:00:00 2017-07-09 00:00:[address] [facility] [id number] [facility] 2017-06-19 15:42:34 2017-06-19 15:42:[address] [facility] [id number] [facility] 2017-06-18 15:49:46 2017-06-18 15:49:[address] [facility] [id number] [facility] 2017-06-18 00:00:00 2017-06-18 00:00:[address] [facility] [id number] [facility] 2017-06-17 00:00:00 2017-06-17 00:00:[address] [facility] [id number] [facility] 2017-06-05 00:00:00 2017-06-05 00:00:[address] [facility] [id number] [facility] 2017-05-07 14:20:58 2017-05-07 14:20:[address] [facility] [id number] [facility] 2017-04-21 13:49:53 2017-04-21 13:49:[address] [facility] [id number] [facility] 2017-04-20 00:00:00 2017-04-20 00:00:[address] [facility] [id number] [facility] 2017-03-11 00:00:00 2017-03-11 00:00:[address] [facility] [id number] [facility] 2017-02-05 00:00:00 2017-02-05 00:00:[address] [facility] [id number] [facility] 2017-01-07 00:00:00 2017-01-07 00:00:[address] [facility] [id number] [facility] 2017-01-07 00:00:00 2017-01-07 00:00:[address] [facility] [id number] [facility] 2016-12-26 00:00:00 2016-12-26 00:00:[address] [facility] [id number] [facility] 2016-12-22 13:55:41 2016-12-22 13:55:[address] [facility] [id number] [facility] 2016-12-22 11:01:06 2016-12-22 11:01:[address] [facility] [id number] [facility] 2016-12-22 09:56:58 2016-12-22 09:56:[address] [facility] [id number] [facility] 2016-12-11 10:19:43 2016-12-11 10:19:[address] [facility] [id number] [facility] 2016-12-07 07:43:02 2016-12-07 07:43:[address] [facility] [id number] [facility] 2016-12-07 05:37:13 2016-12-07 05:37:13 Inpatient [facility] [id number] [facility] 2014-06-19 00:00:00 2014-06-19 00:00:00 Office Visit Ivan Quiles [facility] Encounter/[id number] [facility] 2014-06-19 00:00:00 2014-06-19 00:00:00 Office Visit Ivan Quiles [facility] Encounter/[id number] [facility] Results Test Description Test Time Test Comments Results Result Comments Source rapid plasma reagin antibody, serum 2019-11-16 12:28:00 Test Item rapid plasma reagin antibody, serum (test code = 5291-0) Non Reactive Non Reactive [facility], serum, by PCR, [id number] 12:28:00 * Test Item Value Reference Range Interpretation Comments HIV-1RNA, serum, by PCR, quantitative (test code = 61850) 280 /mL [facility] Healthalanine aminotransferase (SGPT), [id number] 12:28:00 * Test Item Value Reference Range Interpretation Comments alanine aminotransferase (SGPT), serum (test code = 1742-6) 28 1/L 0-44 [facility] Healthaspartate aminotransferase (SGOT), [id number] 12:28:00* Test Item Value Reference Range Interpretation Comments aspartate aminotransferase (SGOT), serum (test code = 1920-8) 19 1/ L 0-40 [facility] Healthalkaline phosphatase, [id number] 12:28:00* Test Item Value Reference Range Interpretation Comments alkaline phosphatase, serum (test code = 1783-0) 82 1/L 39-11 7 [facility]bilirubin, serum, [id number] 12:28:00* Test Item Value Reference Range Interpretation Comments bilirubin, serum, total (test code = 1975-2) 0.4 mg/dL 0.0-1.2 [facility] Healthalbumin/globulin ratio, [id number] 12:28:00* Test Item Value Reference Range Interpretation Comments albumin/globulin ratio, serum (test code = 1759-0) 1.5 1.2 -2.2 [facility] Healthglobulin, [id number] 12:28:00* Test Item Value Reference Range Interpretation Comments globulin, serum (test code = 2336-6) 3.1 1.5-4.5 [facility] Healthalbumin, [id number] 12:28:00* Test Item Value Reference Range Interpretation Comments albumin, serum (test code = 1751-7) 4.5 g/dL 4.1-5.2 [facility] Healthprotein, total, [id number] 12:28:00* Test Item Value Reference Range Interpretation Comments protein, total, serum (test code = 2885-2) 7.6 g/dL 6.0-8.5 [facility] Healthcalcium, [id number] 12:28:00* Test Item Value Reference Range Interpretation Comments calcium, serum (test code = 2000-8) 9.3 mg/dL 8.7-10.2 [facility] Healthcarbon dioxide, venous [id number] 12:28:00* Test Item Value Reference Range Interpretation Comments carbon dioxide, venous blood (test code = 2027-1) 24 mmol/L 20-2 9 [facility] Healthchloride, [id number] 12:28:00* Test Item Value Reference Range Interpretation Comments chloride, serum (test code = 2075-0) 100 mmol/L 96-106 [facility] Healthpotassium, [id number] 12:28:00* Test Item Value Reference Range Interpretation Comments potassium, serum (test code = 2823-3) 4.3 mmol/L 3.5-5.2 [facility] Healthsodium, [id number] 12:28:00* Test Item Value Reference Range Interpretation Comments sodium, serum (test code = 2951-2) 138 mmol/L 134-144 [facility] Healthurea nitrogen/creatinine ratio, [id number] 12:28:00 * Test Item Value Reference Range Interpretation Comments urea nitrogen/creatinine ratio, serum (test code = 3097-3) 10 9-20 [facility] HealtheGFR if Njcswjik6603-60-14 12:28:00* Test Item Value Reference Range Interpretation Comments eGFR if (test code = 74680-7) 118 mL/min/((173/100 ).m2) >59 [facility] HealthEstimated Glomerular Filtration Rate (calc)2019-11-16 12:28:00* Test Item Value Reference Range Interpretation Comments Estimated Glomerular Filtration Rate (calc) (test code = 31384-0) 102 mL/min/((173/100).m2) >59 [facility] Healthcreatinine, [id number] 12:28:00* Test Item Value Reference Range Interpretation Comments creatinine, serum (test code = 2160-0) 1.00 mg/dL 0.76-1.27 [facility] Healthurea nitrogen, [id number] 12:28:00* Test Item Value Reference Range Interpretation Comments urea nitrogen, blood (test code = 3094-0) 10 mg/dL 6-20 [facility] Healthblood glucose, [id number] 12:28:00* Test Item Value Reference Range Interpretation Comments blood glucose, random (test code = 2339-0) 97 mg/dL 65-99 [facility] Healthimmature granulocytes, percentage of total cells, blood 2019-11-16 12:28:00* Test Item Value Reference Range Interpretation Comments immature granulocytes, percentage of total cells, bloo d (test code = 17944-3) 0 % [facility] Healthbasophil count, [id number] 12:28:00* Test Item Value Reference Range Interpretation Comments basophil count, absolute (test code = 32975-5) 0.0 x10E3/uL 0.0-0.2 [facility] HealthEosinophil Absolute Xyutd0003-78-29 12:28:00* Test Item Value Reference Range Interpretation Comments Eosinophil Absolute Count (test code = 42175-6) 0.2 X10E3/UL 0.0-0. 4 [facility] Healthmonocyte count, blood, [id number] 12:28:00* Test Item Value Reference Range Interpretation Comments monocyte count, blood, automated (test code = 742-7) 0.5 X10E3/UL 0 .1-0.9 [facility] Healthlymphocyte count, blood, [id number] 12:28:00* Test Item Value Reference Range Interpretation Comments lymphocyte count, blood, automated (test code = 731-0) 1.7 X10E3/UL 0.7-3.1 [facility] HealthAbsolute Gdgghdmwpta6407-32-77 12:28:00* Test Item Value Reference Range Interpretation Comments Absolute Neutrophils (test code = 18846-0) 3.8 X10E3/UL 1.4-7.0 [facility] Healthbasophils as percent of blood klhhrcffqi4177-37-01 12:28:00* Test Item Value Reference Range Interpretation Comments basophils as percent of blood leukocytes (test code = 707-0) 1 % [facility] Healtheosinophils as percent of blood swlxiafypc9534-37-47 12:28:00* Test Item Value Reference Range Interpretation Comments eosinophils as percent of blood leukocytes (test code = 713-8) 3 % [facility] Healthmonocytes as percent of blood bsswrdaxpl2430-64-21 12:28:00* Test Item Value Reference Range Interpretation Comments monocytes as percent of blood leukocytes (test code = 5905-5) 8 % [facility] Healthlymphocytes as percent of blood qsuxmfaloa0083-61-22 12:28:00* Test Item Value Reference Range Interpretation Comments lymphocytes as percent of blood leukocytes (test code = 736-9) 28 % [facility] Healthneutrophils as percent of blood fikcnrxjmf0630-09-69 12:28:00* Test Item Value Reference Range Interpretation Comments neutrophils as percent of blood leukocytes (test code = 770-8) 60 % [facility] Healthplatelet ahujp6869-10-60 12:28:00* Test Item Value Reference Range Interpretation Comments platelet count (test code = 777-3) 256 X10E3/UL 150-450 [facility] Healthred blood cell distribution [id number] 12:28:00* Test Item Value Reference Range Interpretation Comments red blood cell distribution width (test code = 788-0) 14.0 % 11.6-15.4 [facility] corpuscular hemoglobin concentration, [id number] 12:28:00* Test Item Value Reference Range Interpretation Comments mean corpuscular hemoglobin concentration, RBC (test code = 786-4) 34.2 G/DL 31.5-35.7 [facility] corpuscular hemoglobin, [id number] 12:28:00* Test Item Value Reference Range Interpretation Comments mean corpuscular hemoglobin, RBC (test code = 785-6) 32.0 pg 2 6.6-33.0 [facility] corpuscular volume, JPA9056-97-11 12:28:00* Test Item Value Reference Range Interpretation Comments mean corpuscular volume, RBC (test code = 787-2) 94 fL 79-97 [facility]hematocrit, nzyjz1704-13-44 12:28:00* Test Item Value Reference Range Interpretation Comments hematocrit, blood (test code = 4544-3) 42.1 % 37.5-51.0 [facility] Healthhemoglobin, mzpje2903-67-11 12:28:00* Test Item Value Reference Range Interpretation Comments hemoglobin, blood (test code = 718-7) 14.4 g/dL 13.0-17.7 [facility] twsbj0403-99-35 12:28:00* Test Item Value Reference Range Interpretation Comments erythrocyte (RBC) count (test code = 789-8) 4.50 X10E6/UL 4.14-5.80 [facility] Healthleukocyte count, fnaqm4453-48-25 12:28:00* Test Item Value Reference Range Interpretation Comments leukocyte count, blood (test code = 6690-2) 6.2 X10E3/UL 3.4-10.8 [facility] HealthCD4/CD8 oqyxa9085-15-10 12:28:00* Test Item Value Reference Range Interpretation Comments CD4/CD8 ratio (test code = 72915) 0.37 0.92-3.72 L [facility] HealthT-suppressor cells (CD8) as percent of blood lymphocytes 2019-11-16 12:28:00* Test Item Value Reference Range Interpretation Comments T-suppressor cells (CD8) as percent of blood lymphocyt es (test code = 3517) 54.0 % 12.0-35.5 H [facility] Healthabsolute [id number] 12:28:00* Test Item Value Reference Range Interpretation Comments absolute CD8 (test code = 04725) 918 109-897 H [facility] HealthT-helper cells (CD4) as percent of blood lymphocytes 2019-11-16 12:28:00* Test Item Value Reference Range Interpretation Comments T-helper cells (CD4) as percent of blood lymphocytes ( test code = 8123-2) 19.9 % 30.8-58.5 L [facility] HealthT-helper cells (CD4) ptkiw1905-20-86 12:28:00* Test Item Value Reference Range Interpretation Comments T-helper cells (CD4) count (test code = 56184-9) 338 /UL 359-1 519 L [facility] HealthHIV-1RNA, serum, by PCR, fdkezfkyzqvs1141-54-09 12:09:00 * Test Item Value Reference Range Interpretation Comments HIV-1RNA, serum, by PCR, quantitative (test code = 18296) 660 /mL [facility] HealthHERPES SIMPLEX VIRUS IDENTIFIED (PT; XXX; QL; )2019-07-13 18:13:00* Test Item Value Reference Range Interpretation Comments HERPES SIMPLEX VIRUS IDENTIFIED (PT; XXX; QL; ) (test code = 3557) HSVN [facility] HealthNeisseria gonorrhoeae DNA hxued9980-84-52 14:57:00* Test Item Value Reference Range Interpretation Comments Neisseria gonorrhoeae DNA probe (test code = 55516-3) Negative Negative [facility] Healthchlamydia DNA avglo5324-25-33 14:57:00* Test Item Value Reference Range Interpretation Comments chlamydia DNA probe (test code = 26751-5) Negative Negative [facility] Healthhepatitis B surface zvtbvjr6369-49-40 14:52:00* Test Item Value Reference Range Interpretation Comments hepatitis B surface antigen (test code = 79) Negative Negative [facility] Healthhepatitis C antibody, thqte2751-93-92 14:52:00* Test Item Value Reference Range Interpretation Comments hepatitis C antibody, serum (test code = 5199-5) <0.1 0.0-0 .9 [facility], yfjmn3242-63-06 14:52:00* Test Item Value Reference Range Interpretation Comments rapid plasma reagin antibody, serum (test code = 5291-0) Non Reactive Non Reactive [facility] HealthHIV-1RNA, serum, by PCR, zacidpowuqvc0996-45-14 14:52:00 * Test Item Value Reference Range Interpretation Comments HIV-1RNA, serum, by PCR, quantitative (test code = 70768) 535924 /m L [facility] HealthLDL cholesterol, sqxqr7406-57-89 14:52:00* Test Item Value Reference Range Interpretation Comments LDL cholesterol, serum (test code = 2089-1) 73 mg/dL 0-99 [facility] low density veemfcwqvxtd3196-91-56 14:52:00* Test Item Value Reference Range Interpretation Comments very low density lipoproteins (test code = 2091-7) 35 mg/dL 5-4 0 [facility] HealthHDL cholesterol, rqlwt0830-83-25 14:52:00* Test Item Value Reference Range Interpretation Comments HDL cholesterol, serum (test code = 2085-9) 25 mg/dL >39 L [facility]althtriglyceride, serum, lnwsbhf9141-71-33 14:52:00* Test Item Value Reference Range Interpretation Comments triglyceride, serum, fasting (test code = 2571-8) 175 mg/dL 0-14 9 H [facility] Healthcholesterol, vwdiu3884-51-84 14:52:00* Test Item Value Reference Range Interpretation Comments cholesterol, serum (test code = 2093-3) 133 mg/dL 100-199 [facility] Healthalanine aminotransferase (SGPT), neark7049-60-39 14:52:00 * Test Item Value Reference Range Interpretation Comments alanine aminotransferase (SGPT), serum (test code = 1742-6) 60 1/L 0-44 H [facility] Healthaspartate aminotransferase (SGOT), wtzvc1984-33-98 14:52:00* Test Item Value Reference Range Interpretation Comments aspartate aminotransferase (SGOT), serum (test code = 1920-8) 36 1/ L 0-40 [facility] Healthalkaline phosphatase, gtssf8432-92-08 14:52:00* Test Item Value Reference Range Interpretation Comments alkaline phosphatase, serum (test code = 1783-0) 91 1/L 39-11 7 [facility] Healthbilirubin, serum, tswtl0877-90-78 14:52:00* Test Item Value Reference Range Interpretation Comments bilirubin, serum, total (test code = 1975-2) 0.5 mg/dL 0.0-1.2 [facility] Healthalbumin/globulin ratio, rokwf2772-02-29 14:52:00* Test Item Value Reference Range Interpretation Comments albumin/globulin ratio, serum (test code = 1759-0) 1.2 1.2 -2.2 [facility] Healthglobulin, hrbot6621-05-49 14:52:00* Test Item Value Reference Range Interpretation Comments globulin, serum (test code = 2336-6) 3.8 1.5-4.5 [facility] Healthalbumin, phfpe3992-26-18 14:52:00* Test Item Value Reference Range Interpretation Comments albumin, serum (test code = 1751-7) 4.5 g/dL 4.1-5.2 [facility] Healthprotein, total, dydfg1861-25-53 14:52:00* Test Item Value Reference Range Interpretation Comments protein, total, serum (test code = 2885-2) 8.3 g/dL 6.0-8.5 [facility] Healthcalcium, qziuu4617-58-47 14:52:00* Test Item Value Reference Range Interpretation Comments calcium, serum (test code = 2000-8) 9.1 mg/dL 8.7-10.2 [facility] Healthcarbon dioxide, venous onirx2320-51-84 14:52:00* Test Item Value Reference Range Interpretation Comments carbon dioxide, venous blood (test code = 2027-1) 21 mmol/L 20-2 9 [facility] Healthchloride, sphjo0331-99-41 14:52:00* Test Item Value Reference Range Interpretation Comments chloride, serum (test code = 2075-0) 102 mmol/L 96-106 [facility] Healthpotassium, lslwz6433-44-78 14:52:00* Test Item Value Reference Range Interpretation Comments potassium, serum (test code = 2823-3) 4.2 mmol/L 3.5-5.2 [facility] Healthsodium, szbfk8159-86-98 14:52:00* Test Item Value Reference Range Interpretation Comments sodium, serum (test code = 2951-2) 138 mmol/L 134-144 [facility] Healthurea nitrogen/creatinine ratio, mneeh5453-51-23 14:52:00 * Test Item Value Reference Range Interpretation Comments urea nitrogen/creatinine ratio, serum (test code = 3097-3) 11 9-20 [facility] HealtheGFR if Euymepoe5344-63-05 14:52:00* Test Item Value Reference Range Interpretation Comments eGFR if (test code = 51526-4) 138 mL/min/((173/100 ).m2) >59 [facility] HealthEstimated Glomerular Filtration Rate (calc)2019-07-04 14:52:00* Test Item Value Reference Range Interpretation Comments Estimated Glomerular Filtration Rate (calc) (test code = 36738-4) 119 mL/min/((173/100).m2) >59 [facility] Healthcreatinine, tercj1354-54-96 14:52:00* Test Item Value Reference Range Interpretation Comments creatinine, serum (test code = 2160-0) 0.84 mg/dL 0.76-1.27 [facility] Healthurea nitrogen, eshct0773-23-47 14:52:00* Test Item Value Reference Range Interpretation Comments urea nitrogen, blood (test code = 3094-0) 9 mg/dL 6-20 [facility] Healthblood glucose, zdobvc0999-66-56 14:52:00* Test Item Value Reference Range Interpretation Comments blood glucose, random (test code = 2339-0) 96 mg/dL 65-99 [facility] Healthimmature granulocytes, percentage of total cells, blood 2019-07-04 14:52:00* Test Item Value Reference Range Interpretation Comments immature granulocytes, percentage of total cells, bloo d (test code = 47874-2) 0 % [facility] Healthbasophil count, bqnnyliw0101-45-15 14:52:00* Test Item Value Reference Range Interpretation Comments basophil count, absolute (test code = 32525-2) 0.0 x10E3/uL 0.0-0.2 [facility] HealthEosinophil Absolute Syngw0050-60-31 14:52:00* Test Item Value Reference Range Interpretation Comments Eosinophil Absolute Count (test code = 77192-0) 0.1 X10E3/UL 0.0-0. 4 [facility] Healthmonocyte count, blood, gmqemcpzc1421-44-24 14:52:00* Test Item Value Reference Range Interpretation Comments monocyte count, blood, automated (test code = 742-7) 0.5 X10E3/UL 0 .1-0.9 [facility] Healthlymphocyte count, blood, bfvbugspx0128-67-94 14:52:00* Test Item Value Reference Range Interpretation Comments lymphocyte count, blood, automated (test code = 731-0) 1.1 X10E3/UL 0.7-3.1 [facility] HealthAbsolute Muqeafwamqh0594-41-34 14:52:00* Test Item Value Reference Range Interpretation Comments Absolute Neutrophils (test code = 62255-3) 2.5 X10E3/UL 1.4-7.0 [facility] Healthbasophils as percent of blood lnjwiywgbv4364-76-21 14:52:00* Test Item Value Reference Range Interpretation Comments basophils as percent of blood leukocytes (test code = 707-0) 1 % [facility] Healtheosinophils as percent of blood twpfcrzuqi1382-07-43 14:52:00* Test Item Value Reference Range Interpretation Comments eosinophils as percent of blood leukocytes (test code = 713-8) 1 % [facility] Healthmonocytes as percent of blood wonsjwzloj3034-75-91 14:52:00* Test Item Value Reference Range Interpretation Comments monocytes as percent of blood leukocytes (test code = 5905-5) 11 % [facility] Healthlymphocytes as percent of blood jqqsyzrvyg8034-71-76 14:52:00* Test Item Value Reference Range Interpretation Comments lymphocytes as percent of blood leukocytes (test code = 736-9) 26 % [facility] Healthneutrophils as percent of blood xuhqnhylwv2296-51-61 14:52:00* Test Item Value Reference Range Interpretation Comments neutrophils as percent of blood leukocytes (test code = 770-8) 61 % [facility] Healthplatelet hurlk2199-62-51 14:52:00* Test Item Value Reference Range Interpretation Comments platelet count (test code = 777-3) 217 X10E3/UL 150-450 [facility] Healthred blood cell distribution pwfjv2080-66-98 14:52:00* Test Item Value Reference Range Interpretation Comments red blood cell distribution width (test code = 788-0) 14.1 % 11.6-15.4 [facility] corpuscular hemoglobin concentration, [id number] 14:52:00* Test Item Value Reference Range Interpretation Comments mean corpuscular hemoglobin concentration, RBC (test code = 786-4) 32.1 G/DL 31.5-35.7 [facility] corpuscular hemoglobin, [id number] 14:52:00* Test Item Value Reference Range Interpretation Comments mean corpuscular hemoglobin, RBC (test code = 785-6) 29.8 pg 2 6.6-33.0 [facility] corpuscular volume, MZG6223-20-98 14:52:00* Test Item Value Reference Range Interpretation Comments mean corpuscular volume, RBC (test code = 787-2) 93 fL 79-97 [facility] Healthhematocrit, eatib3334-70-98 14:52:00* Test Item Value Reference Range Interpretation Comments hematocrit, blood (test code = 4544-3) 44.3 % 37.5-51.0 [facility] Healthhemoglobin, xpbsy6325-55-11 14:52:00* Test Item Value Reference Range Interpretation Comments hemoglobin, blood (test code = 718-7) 14.2 g/dL 13.0-17.7 [facility] Healtherythrocyte (RBC) gtgln7934-99-06 14:52:00* Test Item Value Reference Range Interpretation Comments erythrocyte (RBC) count (test code = 789-8) 4.76 X10E6/UL 4.14-5.80 [facility] Healthleukocyte count, rxjlz8407-65-75 14:52:00* Test Item Value Reference Range Interpretation Comments leukocyte count, blood (test code = 6690-2) 4.2 X10E3/UL 3.4-10.8 [facility] HealthCD4/CD8 hgfaf1167-54-44 14:52:00* Test Item Value Reference Range Interpretation Comments CD4/CD8 ratio (test code = 16451) 0.19 0.92-3.72 L [facility] HealthT-suppressor cells (CD8) as percent of blood lymphocytes 2019-07-04 14:52:00* Test Item Value Reference Range Interpretation Comments T-suppressor cells (CD8) as percent of blood lymphocyt es (test code = 3517) 63.2 % 12.0-35.5 H [facility] Healthabsolute [id number] 14:52:00* Test Item Value Reference Range Interpretation Comments absolute CD8 (test code = 63869) 695 109-897 [facility] HealthT-helper cells (CD4) as percent of blood lymphocytes 2019-07-04 14:52:00* Test Item Value Reference Range Interpretation Comments T-helper cells (CD4) as percent of blood lymphocytes ( test code = 8123-2) 12.0 % 30.8-58.5 L [facility] HealthT-helper cells (CD4) brbnx2465-90-36 14:52:00* Test Item Value Reference Range Interpretation Comments T-helper cells (CD4) count (test code = 02124-5) 132 /UL 359-1 519 L [facility] HealthThyroid Stimulating Hormone (TSH)2019-06-01 05:20:00* Test Item Value Reference Range Interpretation Comments Thyroid Stimulating Hormone (TSH) (test code = 64929-4) 1.136 0.350-4.940 [facility] Unklb3230-79-58 05:16:00* Test Item Value Reference Range Interpretation Comments Sodium Level (test code = 2951-2) 135 136-[address] [facility] CenterPotassium Surta0397-84-65 05:16:00* Test Item Value Reference Range Interpretation Comments Potassium Level (test code = 2823-3) 3.5 3.5-5.1 [facility] CenterChloride Raswy6997-10-52 05:16:00* Test Item Value Reference Range Interpretation Comments Chloride Level (test code = 2075-0) 103 98-107 [facility] CenterCarbon Dioxide Wnxxc2941-17-70 05:16:00* Test Item Value Reference Range Interpretation Comments Carbon Dioxide Level (test code = 2028-9) 22 22-29 [facility] CenterAnion Iou1254-11-28 05:16:00* Test Item Value Reference Range Interpretation Comments Anion Gap (test code = 47433-4) 13.5 8-16 [facility] CenterBlood Urea Xixkdrdn1750-99-00 05:16:00* Test Item Value Reference Range Interpretation Comments Blood Urea Nitrogen (test code = 3094-0) 8 7-26 [facility] CenterCreatinine2020-01-22 05:16:00* Test Item Value Reference Range Interpretation Comments Creatinine (test code = 2160-0) 0.84 0.72-1.25 [facility] CenterBUN/Creatinine Kaaxs1441-11-02 05:16:00* Test Item Value Reference Range Interpretation Comments BUN/Creatinine Ratio (test code = 3097-3) 10 6-25 [facility] CenterEstimat Glomerular Filtration Rate 2019-06-01 05:16:00* Test Item Value Reference Range Interpretation Comments Estimat Glomerular Filtration Rate (test code = 653212778) > 60 >60 Ranges were taken from the National Kidney Disease Education Program and the [facility] [employer] literature.Reference ranges:60 or greater: Taeetk31-89 ( for 3 consecutive months): Chronic kidney disease 15 or less: Kidney failureSt. Joseph Medical CenterGlucose Hamkd9451-78-80 05:16:00* Test Item Value Reference Range Interpretation Comments Glucose Level (test code = ZZH8662) 97 74-118 [facility] CenterCalcium Zqipx7175-68-14 05:16:00* Test Item Value Reference Range Interpretation Comments Calcium Level (test code = 90059-7) 8.7 8.4-10.2 [facility] CenterTotal Nuekuamlt4423-16-50 05:16:00* Test Item Value Reference Range Interpretation Comments Total Bilirubin (test code = 1975-2) 0.9 0.2-1.2 [facility] CenterDirect Gzoojwceb7606-88-59 05:16:00* Test Item Value Reference Range Interpretation Comments Direct Bilirubin (test code = 08897-7) 0.4 0.0-0.5 [facility] CenterAspartate Amino Transf (AST/SGOT) 2019-06-01 05:16:00* Test Item Value Reference Range Interpretation Comments Aspartate Amino Transf (AST/SGOT) (test code = Aspartate Amino Transf (AST/SGOT)) 34 5-34 [facility] CenterAlanine Aminotransferase (ALT/SGPT) 2019-06-01 05:16:00* Test Item Value Reference Range Interpretation Comments Alanine Aminotransferase (ALT/SGPT) (test code = 1742-6) 72 0-[address] [facility] CenterTotal Shuxokx4682-66-71 05:16:00* Test Item Value Reference Range Interpretation Comments Total Protein (test code = 2885-2) 7.6 6.5-8.1 [facility] CenterAlbumin2020-01-22 05:16:00* Test Item Value Reference Range Interpretation Comments Albumin (test code = 1751-7) 3.5 3.5-5.0 [facility] CenterAlkaline Krvwghktavo3938-73-24 05:16:00* Test Item Value Reference Range Interpretation Comments Alkaline Phosphatase (test code = 6768-6) 67 40-150 [facility] CenterWhite Blood Qwvyy8895-39-48 04:38:00* Test Item Value Reference Range Interpretation Comments White Blood Count (test code = 6690-2) 3.85 4.8-10.[address] [facility] CenterRed Blood Bhokf4210-11-13 04:38:00* Test Item Value Reference Range Interpretation Comments Red Blood Count (test code = 789-8) 4.24 4.3-5.[address] [facility] CenterHemoglobin2020-01-22 04:38:00* Test Item Value Reference Range Interpretation Comments Hemoglobin (test code = 63061-6) 12.5 14.0-18.[address] [facility] CenterHematocrit2020-01-22 04:38:00* Test Item Value Reference Range Interpretation Comments Hematocrit (test code = 4544-3) 37.1 38.2-49.[address] [facility] CenterMean Corpuscular Ethmtb8130-31-70 04:38:00* Test Item Value Reference Range Interpretation Comments Mean Corpuscular Volume (test code = 787-2) 87.5 81-99 [facility] CenterMean Corpuscular Veloenvwua9110-47-36 04:38:00* Test Item Value Reference Range Interpretation Comments Mean Corpuscular Hemoglobin (test code = 785-6) 29.5 28-32 [facility] CenterMean Corpuscular Hemoglobin Concent 2019-06-01 04:38:00* Test Item Value Reference Range Interpretation Comments Mean Corpuscular Hemoglobin Concent (test code = 786-4) 33.7 31-35 [facility] CenterRed Cell Distribution Qaxfi8042-74-51 04:38:00* Test Item Value Reference Range Interpretation Comments Red Cell Distribution Width (test code = 21131-7) 13.2 11.7 -14.4 [facility] CenterPlatelet Gmovu5072-12-65 04:38:00* Test Item Value Reference Range Interpretation Comments Platelet Count (test code = 777-3) 238 140-360 [facility] CenterNeutrophils (%) (Auto)2019-06-01 04:38:00 * Test Item Value Reference Range Interpretation Comments Neutrophils (%) (Auto) (test code = 38696-1) 54.4 38.7-80.0 [facility] CenterLymphocytes (%) (Auto)2019-06-01 04:38:00 * Test Item Value Reference Range Interpretation Comments Lymphocytes (%) (Auto) (test code = 736-9) 32.5 18.0-39.1 [facility] CenterMonocytes (%) (Auto)2019-06-01 04:38:00* Test Item Value Reference Range Interpretation Comments Monocytes (%) (Auto) (test code = 5905-5) 11.2 4.4-11.3 [facility] CenterEosinophils (%) (Auto)2019-06-01 04:38:00 * Test Item Value Reference Range Interpretation Comments Eosinophils (%) (Auto) (test code = 713-8) 1.3 0.0-6.0 [facility] CenterBasophils (%) (Auto)2019-06-01 04:38:00* Test Item Value Reference Range Interpretation Comments Basophils (%) (Auto) (test code = 706-2) 0.3 0.0-1.0 [facility] CenterIM GRANULOCYTES %2019-06-01 04:38:00* Test Item Value Reference Range Interpretation Comments IM GRANULOCYTES % (test code = IM GRANULOCYTES %) 0.3 0.0- 1.0 [facility] CenterNeutrophils # (Auto)2019-06-01 04:38:00* Test Item Value Reference Range Interpretation Comments Neutrophils # (Auto) (test code = 751-8) 2.1 2.1-6.9 [facility] CenterLymphocytes # (Auto)2019-06-01 04:38:00* Test Item Value Reference Range Interpretation Comments Lymphocytes # (Auto) (test code = 95368-0) 1.3 1.0-3.2 [facility] CenterMonocytes # (Auto)2019-06-01 04:38:00* Test Item Value Reference Range Interpretation Comments Monocytes # (Auto) (test code = 742-7) 0.4 0.2-0.8 [facility] CenterEosinophils # (Auto)2019-06-01 04:38:00* Test Item Value Reference Range Interpretation Comments Eosinophils # (Auto) (test code = 711-2) 0.1 0.0-0.4 [facility] CenterBasophils # (Auto)2019-06-01 04:38:00* Test Item Value Reference Range Interpretation Comments Basophils # (Auto) (test code = 704-7) 0.0 0.0-0.1 [facility] CenterAbsolute Immature Granulocyte (auto 2019-06-01 04:38:00* Test Item Value Reference Range Interpretation Comments Absolute Immature Granulocyte (auto (shavon t code = Absolute Immature Granulocyte (auto) 0.01 0-0.1 [facility] CenterUrine PIL7213-50-74 21:48:00* Test Item Value Reference Range Interpretation Comments Urine WBC (test code = 5821-4) 0-5 0-5 [facility] CenterUrine GFQ6975-38-35 21:48:00* Test Item Value Reference Range Interpretation Comments Urine RBC (test code = 27794-0) NONE 0-5 [facility] CenterUrine Xkuwimcr4998-71-76 21:48:00* Test Item Value Reference Range Interpretation Comments Urine Bacteria (test code = 02930-7) NONE NONE [facility] CenterUrine Epithelial Oseiq9145-86-28 21:48:00 * Test Item Value Reference Range Interpretation Comments Urine Epithelial Cells (test code = 15064-0) NONE NONE [facility] CenterUrine Opiates Fknicy1051-98-36 21:39:00* Test Item Value Reference Range Interpretation Comments Urine Opiates Screen (test code = 80447-0) NEGATIVE NEGATIVE ALL TESTS PERFORMED MANUALLY ON [facility] TOX/SEE TESTSt. Joseph Medical CenterUrine Barbiturates Rjzhvv4427-32-15 21:39:00* Test Item Value Reference Range Interpretation Comments Urine Barbiturates Screen (test code = 616093114) NEGATIVE NEGA TIVE [facility] CenterUrine Phencyclidine Rysxwn4151-38-18 21:39:00* Test Item Value Reference Range Interpretation Comments Urine Phencyclidine Screen (test code = 54896-9) NEGATIVE NEGAT [facility] CenterUrine Amphetamines Mduyvl0264-94-53 21:39:00* Test Item Value Reference Range Interpretation Comments Urine Amphetamines Screen (test code = 56737-9) NEGATIVE NEGATI VE [facility] CenterUrine Methamphetamines Zpdsfj7775-69-07 21:39:00* Test Item Value Reference Range Interpretation Comments Urine Methamphetamines Screen (test code = Urine Metha mphetamines Screen) NEGATIVE NEGATIVE [facility] CenterUrine Benzodiazepines Vyrtei6036-74-78 21:39:00* Test Item Value Reference Range Interpretation Comments Urine Benzodiazepines Screen (test code = 34850-3) NEGATIVE NEG ATIVE [facility] CenterUrine Cocaine Akdirc3760-97-31 21:39:00* Test Item Value Reference Range Interpretation Comments Urine Cocaine Screen (test code = 3398-5) NEGATIVE NEGATIVE [facility] CenterUrine Cannabinoids Lrrcuf1945-47-51 21:39:00* Test Item Value Reference Range Interpretation Comments Urine Cannabinoids Screen (test code = 31689-2) POSITIVE NEGATI VE H THESE RESULTS ARE FOR MEDICAL TREATMENT ONLYTHIS REPORT CONTAINS UNCONFIR MED SCREENING RESULTS*POSITIVE RESULTS WILL BE CONFIRMED BY REFERENCE LAB UPON R EQUEST CUT-OFFDRUG CLASS CONCENTRATION ng/mLAmphetamines 1000Methamphetamines 1000Cocaine 300Opiate 300Phencyc lidine 25Cannabinoid 50Barbiturates 300Benzodiazepine 300Methadone 300 This test p rovides only a screen. Positive results should be repeated by a confirmatory shavon t.[facility] CenterUrine Methadone Mwrsya8815-13-68 21:39:00* Test Item Value Reference Range Interpretation Comments Urine Methadone Screen (test code = 51669-3) NEGATIVE NEGATIVE THESE RESULTS ARE FOR MEDICAL TREATMENT ONLYTHIS REPORT CONTAINS UNCONFIR MED SCREENING RESULTS*POSITIVE RESULTS WILL BE CONFIRMED BY REFERENCE LAB UPON R EQUEST CUT-OFFDRUG CLASS CONCENTRATION ng/mLAmphetamines 1000Methamphetamines 1000Cocaine Metabolite 300Opiate 300Phencyc lidine 25Cannabinoid 50Barbiturates 300Benzodiazepine 300Methadone 300[facility] Pchuv5866-43-59 21:38:00* Test Item Value Reference Range Interpretation Comments Urine Color (test code = 5778-6) YELLOW YELLOW [facility] Nsfujzu5542-75-44 21:38:00* Test Item Value Reference Range Interpretation Comments Urine Clarity (test code = 87462-0) CLEAR CLEAR [facility] Specific Alizyec6086-64-23 21:38:00 * Test Item Value Reference Range Interpretation Comments Urine Specific [place] (test code = 5811-5) 1.020 1.010-1.[address] [facility] [id number] 21:38:00* Test Item Value Reference Range Interpretation Comments Urine pH (test code = 58323-3) 7.5 5-7 [facility] Leukocyte Rnwugpqq3750-99-36 21:38:00* Test Item Value Reference Range Interpretation Comments Urine Leukocyte Esterase (test code = 5799-2) NEGATIVE NEGATIVE [facility] Kxeythi9564-03-17 21:38:00* Test Item Value Reference Range Interpretation Comments Urine Nitrite (test code = 38938-4) NEGATIVE NEGATIVE [facility] Jfytdog8897-65-20 21:38:00* Test Item Value Reference Range Interpretation Comments Urine Protein (test code = 5804-0) NEGATIVE NEGATIVE [facility] Glucose (UA)2019-05-30 21:38:00* Test Item Value Reference Range Interpretation Comments Urine Glucose (UA) (test code = 2349-9) NEGATIVE NEGATIVE [facility] Dsuxcox0726-03-13 21:38:00* Test Item Value Reference Range Interpretation Comments Urine Ketones (test code = 08507-3) NEGATIVE NEGATIVE [facility] Oimtjlvdhxqn9309-14-76 21:38:00* Test Item Value Reference Range Interpretation Comments Urine Urobilinogen (test code = 76990-0) 0.2 0.2-1 [facility] Yldvpfwjo4507-44-09 21:38:00* Test Item Value Reference Range Interpretation Comments Urine Bilirubin (test code = 1978-6) NEGATIVE NEGATIVE [facility] Nvxep7146-36-11 21:38:00* Test Item Value Reference Range Interpretation Comments Urine Blood (test code = 24884-2) NEGATIVE NEGATIVE [facility] CenterGlobulin2020-01-20 21:15:00* Test Item Value Reference Range Interpretation Comments Globulin (test code = 37117-9) 4.7 2.3-3.[address] [facility] CenterAlbumin/Globulin Jinti4019-36-09 21:15:00 * Test Item Value Reference Range Interpretation Comments Albumin/Globulin Ratio (test code = 1759-0) 0.8 0.8-2.0 [facility] CenterLipase2020-01-20 21:15:00* Test Item Value Reference Range Interpretation Comments Lipase (test code = 3040-3) 24 8-78 [facility] CenterCHEST 2 ODWQZ0458-33-51 21:06:00 [facility] [address] [address] Patient Name: RICK GORDON JR MR #: [id number] : 1990 Age/Sex: 29/M Req #: [id number] Adm Physician: Ordered by: OVI SUERO DO Report #: [id number] Location: ER Room/Bed: Procedure: [id number] 0064 DX/CHEST 2 VIEWS Exam Date: 05/30/19 Exam Time: 1999 REPORT STATUS: Signed EXAM INATION: CHEST 2 VIEWS INDICATION: Seizure COMPARISON: None FINDINGS: TUBES and LINES: None. LUNGS: Low lung volumes. Th ere is bibasilar atelectasis. No consolidations. PLEURA: No pleural effus ion or pneumothorax. HEART AND MEDIASTINUM: The cardiomediastinal silhouet te is unremarkable. BONES AND SOFT TISSUES: No acute osseous lesion. Soft tissues are unremarkable. UPPER ABDOMEN: No free air under the diaph ragm. IMPRESSION: Low lung volumes and bibasilar atelectasis. Signed by: Domo Abel DO on 05/30/2019 9:07 PM Dictated By: ROGELIO ABEL DO 06 Transcribed By: BHAVESH on 05/30/192106 COPY TO: OVI SUERO DO CT BRAIN [id number] 20:22:[address] [address] Patient Name: RICK GORDON JR MR #: [id number] : 1990 Age/Sex: 29/M Req #: [id number] Adm Physician: Ordered by: OVI SUERO DO Report #: [id number] Location: ER Room/Bed: Procedure: [id number] 0042 CT/CT BRAIN WO Exam Date: 05/30/19 Exam Time: 2 000 REPORT STATUS: Signed Examin ation: CT head without contrast Clinical Indication: Headache; seizures. Allyn hnique: Transaxial noncontrast images from the skull base through the vertex w ere obtained. Sagittal and coronal reformatted images were done. Dose modulati on, iterative reconstruction, and/or weight based adjustment of the mA/kV was utilized to reduce the radiation dose to as low as reasonably achievable. C omparison: None. Findings: Scalp: No abnormalities. Bones: Intact. N o fractures. No blastic or lytic lesions. Brain sulci: Appropriate for pa tient's age. Ventricles: Normal in size and configuration. No hydrocephalus. Extra-axial space: No abnormalities. Parenchyma: No abnormal d ensities. No masses, hemorrhage, or acute or chronic cortical based vascular i nsults. Suprasellar region: No abnormalities. Craniocervical junction: Th e foramen magnum is patent. No Chiari one malformation. Impression: No acute intracranial abnormality. Signed by: Dr. Maddison Leal M.D. on 05/30/2019 8:24 PM Dictated By: MADDISON fox Signed By: MADDISON WANG MD on 05/30/192023 Transcribed By: TESSA SUERO on 05/30/192023 COPY TO: OVI SUERO DO - CT ABD PELVIS W/KMBX1019-84-16 16:19:00 [facility] 1990 Age[facility]S: 28 / M [address] [facility] Unit #: [id number] Loc: [place] [address] Phys: Indira Winters MD Acct: [id number] Dis Date: Status: REG ER PHONE #: [phone] Exam Date: 03/30/2019 1608 FAX #: [phone] Reason: nausea/vomiting/diarrhea EXAMS: CPT CODE: [id number] CT ABD PELVIS W/CONT 48642 REASON FOR EXAM: nausea/vomiting/diarrhea EXAM ORDER DATE: 03/30/2019 2:59 PM Ordering: Indira Winters MD Attending:Indira Winters MD Location:[facility] PROCEDURE: - CT ABD PELVIS W/CONT COMPARISON: FINDINGS: CT images of the abdomen and pelvis were obtained with IV and without oral contrast at 5mm. Dose modulation, iterative reconstruction, and/or weight based adjustment of the MA/KV was utilized to reduce the radiation dose to as low as reasonably achievable. Intravenous contrast: 100cc of Omnipaque 370. The liver, spleen, pancreas are grossly within normal limits. The patient is status post cholecystectomy The kidneys are within normal limits. The urinary bladder is unremarkable. The colon, small bowel, and stomach are within normal limits without evidence of obstruction. The appendix is unremarkable. No evidence of free air or free fluid. IMPRESSION: No acute findings in the abdomen at 1619 Reported and signed by: Mulugeta Solomon M.D. CC: Indira Winters MD Technologist:Luke Villanueva RT(R) CTDI: DLP: Trnscb Date/Time: 03/30/2019 (1619) Skyla.VTL Orig Print D/T: S: 03/30/2019 (6590) PAGE 1 Signed Report - XR CHEST 2 [id number] 16:08:00 Name: RICK GORDON [facility] : 1990 Age/S:28 /M [address] [facility] Unit#:[id number] Loc: [place] [address] Phys: Indira Winters MD Dis Date: PHONE #: [phone] Status: REG ER FAX #: [phone] Exam Date: 03/30/2019 Reason: fever, nausesa/vomiting EXAMS: CPT CODE: [id number] XR CHEST 2 V 26887 REASON FOR EXAM: fever, nausesa/vomiting Exam Order Date: 03/30/2019 3:20 PM Ordering: Indira Winters MD Attending:Indira Winters MD Location:[facility] PROCEDURE: - XR CHEST 2 V COMPARISON: 05/24/2017 FINDINGS: PA and lateral views of the chest show clear lungs without evidence of consolidation. No evidence of effusion. The heart size is within normal limits. Pulmonary vasculatures are unremarkable. The osseous structures are grossly intact. IMPRESSION: No active disease. at 1608 Reported and signed by: Mulugeta Solomon M.D. CC: Indira Winters MD Technologist: Luke Villanueva RT(R) Trnscrpt Data: 03/30/2019 (1608) ChelleVTL Orig Print D/T: S: 03/30/2019 (4881) PAGE 1 Signed Report MONO [id number] 15:36:00* Test Item Value Reference Range Interpretation Comments MONO SCREEN (test code = MONO) NEGATIVE NEGATIVE COMPREHENSIVE METABOLIC [id number] 15:33:00* Test Item Value Reference Range Interpretation Comments SODIUM (test code = NA) 136 mmol/L 136-145 N POTASSIUM (test code = K) 4.0 mmol/L 3.5-5.1 N CHLORIDE (test code = CL) 101 mmol/L 101-109 N CARBON DIOXIDE (test code = CO2) 24.4 mmol/L 21-32 N ANION GAP (test code = GAP) 15 mmol/L 10-20 N GLUCOSE (test code = GLU) 109 mg/dL 74-106 H BLOOD UREA NITROGEN (test code = BUN) 10 mg/dL 3-21 N CREATININE (test code = CREAT) 1.00 mg/dL 0.55-1.3 N BUN/CREATININE RATIO (test code = BUN/CREA) 10.0 10-20 N TOTAL PROTEIN (test code = PROT) 9.0 g/dL 6.5-8.4 H ALBUMIN (test code = ALB) 3.5 g/dL 3.4-4.8 N GLOBULIN (test code = GLOB) 5.5 G/DL 1-10 N ALBUMIN/GLOBULIN RATIO (test code = A/G) 0.64 RATIO 0.75-1.50 L CALCIUM (test code = CA) 8.7 mg/dL 8.4-10.2 N BILIRUBIN TOTAL (test code = BILT) 0.50 mg/dL 0.0-1.0 N SGOT/AST (test code = AST) 52 U/L 6-32 H SGPT/ALT (test code = ALT) 114 U/L 12-78 H N ote: Change in REFERENCE RANGE due to new reagent method. ALKALINE PHOSPHATASE TOTAL (test code = ALKP) 104 U/L 38-126 N [id number] 15:33:00* Test Item Value Reference Range Interpretation Comments LIPASE (test code = LIP) 125 U/L 128-270 L CBC W/AUTO [id number] 15:14:00* Test Item Value Reference Range Interpretation Comments WHITE BLOOD CELL (test code = WBC) 5.4 K/mm3 4.5-12.5 N RED BLOOD CELL (test code = RBC) 4.61 mill/mm3 4.0-5.8 N HEMOGLOBIN (test code = HGB) 13.5 gram/dL 13.0-17.5 N HEMATOCRIT (test code = HCT) 40.7 % 42.0-52.0 L MEAN CELL VOLUME (test code = MCV) 88.3 fL 80-98 N MEAN CELL HGB (test code = MCH) 29.3 picogram 27.0-33.0 N MEAN CELL HGB CONCETRATION (test code = MCHC) 33.2 gram/dL 33.0-36. 0 N RED CELL DISTRIBUTION WIDTH (test code = RDW) 13.0 % 11.6-16. 2 N RED CELL DISTRIBUTION WIDTH SD (test code = RDW-SD) 42.2 fL 37 .0-51.0 N PLATELET COUNT (test code = PLT) 254 K/mm3 150-450 N MEAN PLATELET VOLUME (test code = MPV) 9.1 fL 6.7-11.0 N NEUTROPHIL % (test code = NT%) 63.4 % 39.0-69.0 N LYMPHOCYTE % (test code = LY%) 24.1 % 25.0-55.0 L MONOCYTE % (test code = MO%) 11.2 % 0.0-10.0 H EOSINOPHIL % (test code = EO%) 0.7 % 0.0-5.0 N BASOPHIL % (test code = BA%) 0.4 % 0.0-1.0 N NEUTROPHIL # (test code = NT#) 3.44 K/mm3 1.8-7.7 N LYMPHOCYTE # (test code = LY#) 1.31 K/mm3 1.0-5.0 N MONOCYTE # (test code = MO#) 0.61 K/mm3 0-0.8 N EOSINOPHIL # (test code = EO#) 0.04 K/mm3 0.0-0.5 N BASOPHIL # (test code = BA#) 0.02 K/mm3 0.0-0.[address] ABDOMEN/PELVIS [id number] 00:12:00 [address] [address] Patient Name: RICK GORDON JR MR #: [id number] : 1990 Age/Sex: 28/M Req #: [id number] Adm Physician: Ordered by: JULIÁN LAGUNAS [employer] Report #: [id number] Location: ER Room/Bed: Procedure: 0 [id number] CT/CT ABDOMEN/PELVIS W Exam Date: Exam José Miguel e: REPORT STATUS: Signed CT Abd omen And Pelvis with Intravenous Contrast INDICATION: Nausea, vomiting, di arrhea LLQ pain, rule out colitis TECHNIQUE: Thin collimation axial ailin ges obtained from the diaphragm to the level of the pubic symphysis following the uneventful administration of oral and 100 cc of low osmolar, nonionic intr avenous contrast. Dose reduction techniques used: Automated exposure contro l, adjustment of the mAs and/or kVp according to patient size, standardized lo w-dose protocol, and/or iterative reconstruction technique. RADIATION DOSE: Total DLP: 881.44 mGy*cm Estimated effective dose: (DLP x 0.015 x size factor) mSv CTDIvol has been reviewed. It is below the major its set by the Radiation Protocol Committee (RPC). COMPARISON: CT abdomen /pelvis 01/13/2018. ABDOMEN FINDINGS: Lung Bases: Clear. The visualize d portions of the mediastinum are normal.. Liver: Mild steatosis. No evide nce for mass. Gallbladder: Absent. No biliary ductal dilatation. Pancr eas: Normal attenuation without mass or ductal dilatation. Spleen: Normal i n size. No evidence of mass.. Adrenal Glands: No evidence for mass. K idneys/ureters: Right: Normal enhancement. No soft tissue mass. No hydro nephrosis. Left: Normal enhancement. No soft tissue mass. No hydronephro sis. No ureteral dilatation or calculus. Lymph Nodes: No enlarged abdo glory or retroperitoneal lymph nodes. Aorta: Normal in diameter PELV IS FINDINGS: Bowel: Stomach: Normal. Small Bowel: Enteric contrast p resent throughout. No mural thickening or dilatation. Large Bowel: There i s enteric contrast in the proximal right colon. No significant stool burden th roughout the large bowel. No mural thickening or pericolonic inflammation.. Appendix: Normal appendix. Bladder: Normal. Peritoneum/retroperitone um: No free fluid or fluid collection Bones: Unremarkable for age. Sof t tissues: Fat-containing of focal hernia has an aperture of 9 mm. IMPRESSI ON: 1. No evidence for bowel obstruction or inflammation. Normal appendix . No alternative findings to explain left lower quadrant pain 2. Steato sis. 3. Cholecystectomy. Normal biliary tree. Signed by: Dr. Hugo Harris MD on 08/25/2018 12:18 AM Dictated By: HUGO HARRIS MD El ectronically Signed By: HUGO HARRIS MD on 08/25/1817 Transcribed By: Archana PEREZ on 08/25/1817 COPY TO: JULIÁN LAGUNAS [employer] Sodium Cdofm4991-17-91 22:55:00* Test Item Value Reference Range Interpretation Comments Sodium Level (test code = 2951-2) 134 136-[address] [facility] CenterPotassium Jmcne6011-18-73 22:55:00* Test Item Value Reference Range Interpretation Comments Potassium Level (test code = 2823-3) 4.4 3.5-5.1 [facility] CenterChloride Dsynr5056-99-65 22:55:00* Test Item Value Reference Range Interpretation Comments Chloride Level (test code = 2075-0) 100 98-107 [facility] CenterCarbon Dioxide Cicwp1531-12-68 22:55:00* Test Item Value Reference Range Interpretation Comments Carbon Dioxide Level (test code = 2028-9) 26 22- [facility] CenterAnion Uji0903-52-40 22:55:00* Test Item Value Reference Range Interpretation Comments Anion Gap (test code = 31040-9) 12.4 8-16 [facility] CenterBlood Urea Kcojvqtj8073-34-07 22:55:00* Test Item Value Reference Range Interpretation Comments Blood Urea Nitrogen (test code = 3094-0) 12 7- [facility] CenterCreatinine2019-04-16 22:55:00* Test Item Value Reference Range Interpretation Comments Creatinine (test code = 2160-0) 0.96 0.72-1.25 [facility] CenterBUN/Creatinine Njvzl6008-76-89 22:55:00* Test Item Value Reference Range Interpretation Comments BUN/Creatinine Ratio (test code = 3097-3) 13 - [facility] CenterEstimat Glomerular Filtration Rate 2018-08-24 22:55:00* Test Item Value Reference Range Interpretation Comments Estimat Glomerular Filtration Rate (test code = 741908652) > 60 >60 Ranges were taken from the National Kidney Disease Education Program and the [facility] literature.Reference ranges:60 or greater: Hwahbr44-68 ( for 3 consecutive months): Chronic kidney disease 15 or less: Kidney failureSt. Joseph Medical CenterGlucose Snnmb1999-53-54 22:55:00* Test Item Value Reference Range Interpretation Comments Glucose Level (test code = DPZ4968) 106 74-118 [facility] CenterCalcium Lvraf8437-61-40 22:55:00* Test Item Value Reference Range Interpretation Comments Calcium Level (test code = 66054-7) 9.8 8.4-10.2 [facility] CenterMagnesium Prxdf8892-22-41 22:55:00* Test Item Value Reference Range Interpretation Comments Magnesium Level (test code = 40884-2) 2.2 1.3-2.[address] [facility] CenterTotal Bvbkexqrx7172-37-96 22:55:00* Test Item Value Reference Range Interpretation Comments Total Bilirubin (test code = 1975-2) 1.0 0.2-1.2 [facility] CenterAspartate Amino Transf (AST/SGOT) 2018-08-24 22:55:00* Test Item Value Reference Range Interpretation Comments Aspartate Amino Transf (AST/SGOT) (test code = Aspartate Amino Transf (AST/SGOT)) 26 5-34 [facility] CenterAlanine Aminotransferase (ALT/SGPT) 2018-08-24 22:55:00* Test Item Value Reference Range Interpretation Comments Alanine Aminotransferase (ALT/SGPT) (test code = 1742-6) 38 0-55 [facility] CenterTotal Rzfnfhc0003-85-47 22:55:00* Test Item Value Reference Range Interpretation Comments Total Protein (test code = 2885-2) 9.0 6.5-8.[address] [facility] CenterAlbumin2019-04-16 22:55:00* Test Item Value Reference Range Interpretation Comments Albumin (test code = 1751-7) 4.1 3.5-5.0 [facility] CenterGlobulin2019-04-16 22:55:00* Test Item Value Reference Range Interpretation Comments Globulin (test code = 69904-5) 4.9 2.3-3.[address] [facility] CenterAlbumin/Globulin Uejtp9648-21-48 22:55:00 * Test Item Value Reference Range Interpretation Comments Albumin/Globulin Ratio (test code = 1759-0) 0.8 0.8-2.0 [facility] CenterAlkaline Scgyqedfhwx8239-31-09 22:55:00* Test Item Value Reference Range Interpretation Comments Alkaline Phosphatase (test code = 6768-6) 73 40-150 [facility] CenterAmylase Ikqkg5383-46-28 22:55:00* Test Item Value Reference Range Interpretation Comments Amylase Level (test code = 1798-8) 115 25-125 [facility] CenterLipase2019-04-16 22:55:00* Test Item Value Reference Range Interpretation Comments Lipase (test code = 3040-3) 42 8-78 [facility] CenterMagnesium Vawva0516-56-85 22:55:00* Test Item Value Reference Range Interpretation Comments Magnesium Level (test code = 36351-3) 2.2 1.3-2.[address] [facility] CenterAmylase Lqnvd5693-08-20 22:55:00* Test Item Value Reference Range Interpretation Comments Amylase Level (test code = 1798-8) 115 25-125 [facility] CenterUrine LIJ8376-27-56 22:49:00* Test Item Value Reference Range Interpretation Comments Urine WBC (test code = 5821-4) 0-5 0-5 [facility] CenterUrine ZEF1535-88-55 22:49:00* Test Item Value Reference Range Interpretation Comments Urine RBC (test code = 09752-2) 0-5 0-5 [facility] CenterUrine Tqvmaxri6152-61-25 22:49:00* Test Item Value Reference Range Interpretation Comments Urine Bacteria (test code = 59589-3) MODERATE NONE H [facility] CenterUrine Epithelial Ewovn3751-49-64 22:49:00 * Test Item Value Reference Range Interpretation Comments Urine Epithelial Cells (test code = 85315-2) FEW NONE [facility] CenterUrine Amorphous Tmqrnyei6987-05-69 22:49:00* Test Item Value Reference Range Interpretation Comments Urine Amorphous Sediment (test code = 8246-1) MODERATE FEW H [facility] CenterUrine Amorphous Rlapcejb8254-16-29 22:49:00* Test Item Value Reference Range Interpretation Comments Urine Amorphous Sediment (test code = 8246-1) MODERATE FEW H [facility] CenterUrine Llzvf4993-94-58 22:44:00* Test Item Value Reference Range Interpretation Comments Urine Color (test code = 5778-6) YELLOW YELLOW [facility] CenterUrine Aulxzuk2650-87-95 22:44:00* Test Item Value Reference Range Interpretation Comments Urine Clarity (test code = 59527-4) HAZY CLEAR [facility] Specific Hcqnzus5386-12-63 22:44:00 * Test Item Value Reference Range Interpretation Comments Urine Specific [place] (test code = 5811-5) 1.015 1.010-1.[address] [facility] CenterUrine oA0992-25-52 22:44:00* Test Item Value Reference Range Interpretation Comments Urine pH (test code = 80536-1) 7 5-7 [facility] CenterUrine Leukocyte Eicdjscn4462-57-98 22:44:00* Test Item Value Reference Range Interpretation Comments Urine Leukocyte Esterase (test code = 5799-2) NEGATIVE NEGATIVE [facility] CenterUrine Orknllj4311-53-71 22:44:00* Test Item Value Reference Range Interpretation Comments Urine Nitrite (test code = 18564-5) NEGATIVE NEGATIVE [facility] CenterUrine Fdanche6758-82-32 22:44:00* Test Item Value Reference Range Interpretation Comments Urine Protein (test code = 5804-0) 1+ NEGATIVE H [facility] CenterUrine Glucose (UA)2018-08-24 22:44:00* Test Item Value Reference Range Interpretation Comments Urine Glucose (UA) (test code = 2349-9) NEGATIVE NEGATIVE [facility] CenterUrine Dtbgcau7638-11-99 22:44:00* Test Item Value Reference Range Interpretation Comments Urine Ketones (test code = 77998-9) TRACE NEGATIVE H [facility] CenterUrine Udaiwovqvwhb2098-14-04 22:44:00* Test Item Value Reference Range Interpretation Comments Urine Urobilinogen (test code = 82501-3) 1 0.2-1 [facility] CenterUrine Sdjhwrrmu5589-82-69 22:44:00* Test Item Value Reference Range Interpretation Comments Urine Bilirubin (test code = 1978-6) NEGATIVE NEGATIVE [facility] CenterUrine Qnqfm1525-56-03 22:44:00* Test Item Value Reference Range Interpretation Comments Urine Blood (test code = 23989-3) NEGATIVE NEGATIVE [facility] CenterWhite Blood Jpmoh5621-64-39 22:35:00* Test Item Value Reference Range Interpretation Comments White Blood Count (test code = 6690-2) 11.22 4.8-10.[address] [facility] CenterRed Blood Blqgj5894-39-18 22:35:00* Test Item Value Reference Range Interpretation Comments Red Blood Count (test code = 789-8) 4.90 4.3-5.7 [facility] CenterHemoglobin2019-04-16 22:35:00* Test Item Value Reference Range Interpretation Comments Hemoglobin (test code = 35004-1) 15.4 14.0-18.0 [facility] CenterHematocrit2019-04-16 22:35:00* Test Item Value Reference Range Interpretation Comments Hematocrit (test code = 4544-3) 45.3 38.2-49.6 [facility] CenterMean Corpuscular Wneufu5355-33-24 22:35:00* Test Item Value Reference Range Interpretation Comments Mean Corpuscular Volume (test code = 787-2) 92.4 81-99 [facility] CenterMean Corpuscular Gatztcehrb4447-38-00 22:35:00* Test Item Value Reference Range Interpretation Comments Mean Corpuscular Hemoglobin (test code = 785-6) 31.4 28-32 [facility] CenterMean Corpuscular Hemoglobin Concent 2018-08-24 22:35:00* Test Item Value Reference Range Interpretation Comments Mean Corpuscular Hemoglobin Concent (test code = 786-4) 34.0 31-35 [facility] CenterRed Cell Distribution Glrpg4903-26-14 22:35:00* Test Item Value Reference Range Interpretation Comments Red Cell Distribution Width (test code = 07442-3) 12.8 11.7 -14.4 [facility] CenterPlatelet Ivoqv8858-62-75 22:35:00* Test Item Value Reference Range Interpretation Comments Platelet Count (test code = 777-3) 294 140-360 [facility] CenterNeutrophils (%) (Auto)2018-08-24 22:35:00 * Test Item Value Reference Range Interpretation Comments Neutrophils (%) (Auto) (test code = 79908-8) 81.6 38.7-80.[address] [facility] CenterLymphocytes (%) (Auto)2018-08-24 22:35:00 * Test Item Value Reference Range Interpretation Comments Lymphocytes (%) (Auto) (test code = 736-9) 11.1 18.0-39.[address] [facility] CenterMonocytes (%) (Auto)2018-08-24 22:35:00* Test Item Value Reference Range Interpretation Comments Monocytes (%) (Auto) (test code = 5905-5) 6.1 4.4-11.3 [facility] CenterEosinophils (%) (Auto)2018-08-24 22:35:00 * Test Item Value Reference Range Interpretation Comments Eosinophils (%) (Auto) (test code = 713-8) 0.3 0.0-6.0 [facility] CenterBasophils (%) (Auto)2018-08-24 22:35:00* Test Item Value Reference Range Interpretation Comments Basophils (%) (Auto) (test code = 706-2) 0.3 0.0-1.0 [facility] CenterIM GRANULOCYTES %2018-08-24 22:35:00* Test Item Value Reference Range Interpretation Comments IM GRANULOCYTES % (test code = IM GRANULOCYTES %) 0.6 0.0- 1.0 [facility] CenterNeutrophils # (Auto)2018-08-24 22:35:00* Test Item Value Reference Range Interpretation Comments Neutrophils # (Auto) (test code = 751-8) 9.2 2.1-6.[address] [facility] CenterLymphocytes # (Auto)2018-08-24 22:35:00* Test Item Value Reference Range Interpretation Comments Lymphocytes # (Auto) (test code = 30787-4) 1.3 1.0-3.2 [facility] CenterMonocytes # (Auto)2018-08-24 22:35:00* Test Item Value Reference Range Interpretation Comments Monocytes # (Auto) (test code = 742-7) 0.7 0.2-0.8 [facility] CenterEosinophils # (Auto)2018-08-24 22:35:00* Test Item Value Reference Range Interpretation Comments Eosinophils # (Auto) (test code = 711-2) 0.0 0.0-0.4 [facility] ([facility])2018-08-24 22:35:00* Test Item Value Reference Range Interpretation Comments Basophils # (Auto) (test code = 704-7) 0.0 0.0-0.1 [facility]Absolute [facility]ature Granulocyte (auto 2018-08-24 22:35:00* Test Item Value Reference Range Interpretation Comments Absolute Immature Granulocyte (auto (shavon t code = Absolute Immature Granulocyte (auto) 0.07 0-0.1 [facility] Centerrapid plasma reagin antibody, serum 2018-07-05 14:55:00* Test Item Value Reference Range Interpretation Comments rapid plasma reagin antibody, serum (test code = 5291-0) Non Reactive Non Reactive [facility]RNA, serum, by PCR, wjimgpteoavu9953-28-29 14:55:00 * Test Item Value Reference Range Interpretation Comments HIV-1RNA, serum, by PCR, quantitative (test code = 68217) 1100 /mL [facility] Healthalanine aminotransferase (SGPT), [id number] 14:55:00 * Test Item Value Reference Range Interpretation Comments alanine aminotransferase (SGPT), serum (test code = 1742-6) 27 1/L 0-44 [facility] Healthaspartate aminotransferase (SGOT), sdibs7612-59-15 14:55:00* Test Item Value Reference Range Interpretation Comments aspartate aminotransferase (SGOT), serum (test code = 1920-8) 21 1/ L 0-40 [facility] Healthalkaline phosphatase, [id number] 14:55:00* Test Item Value Reference Range Interpretation Comments alkaline phosphatase, serum (test code = 1783-0) 83 1/L 39-11 7 [facility] Healthbilirubin, serum, [id number] 14:55:00* Test Item Value Reference Range Interpretation Comments bilirubin, serum, total (test code = 1975-2) 0.8 mg/dL 0.0-1.2 [facility] Healthalbumin/globulin ratio, zrfdi9773-01-59 14:55:00* Test Item Value Reference Range Interpretation Comments albumin/globulin ratio, serum (test code = 1759-0) 1.3 1.2 -2.2 [facility] Healthglobulin, jsvrg8360-13-53 14:55:00* Test Item Value Reference Range Interpretation Comments globulin, serum (test code = 2336-6) 3.5 1.5-4.5 [facility] Healthalbumin, tippk0419-40-25 14:55:00* Test Item Value Reference Range Interpretation Comments albumin, serum (test code = 1751-7) 4.6 g/dL 3.5-5.5 [facility] Healthprotein, total, vxzzq1608-68-14 14:55:00* Test Item Value Reference Range Interpretation Comments protein, total, serum (test code = 2885-2) 8.1 g/dL 6.0-8.5 [facility] Healthcalcium, xzkil3619-77-87 14:55:00* Test Item Value Reference Range Interpretation Comments calcium, serum (test code = 2000-8) 9.4 mg/dL 8.7-10.2 [facility] Healthcarbon dioxide, venous knayw3182-72-55 14:55:00* Test Item Value Reference Range Interpretation Comments carbon dioxide, venous blood (test code = 2027-1) 27 mmol/L 20-2 9 [facility] Healthchloride, zqrlh4833-02-60 14:55:00* Test Item Value Reference Range Interpretation Comments chloride, serum (test code = 2075-0) 99 mmol/L 96-106 [facility] Healthpotassium, igipn8398-15-81 14:55:00* Test Item Value Reference Range Interpretation Comments potassium, serum (test code = 2823-3) 4.7 mmol/L 3.5-5.2 [facility] Healthsodium, osfei8272-50-59 14:55:00* Test Item Value Reference Range Interpretation Comments sodium, serum (test code = 2951-2) 137 mmol/L 134-144 [facility] Healthurea nitrogen/creatinine ratio, yngja0227-07-81 14:55:00 * Test Item Value Reference Range Interpretation Comments urea nitrogen/creatinine ratio, serum (test code = 3097-3) 12 9-20 [facility] HealtheGFR if Gqqqonbg5900-80-56 14:55:00* Test Item Value Reference Range Interpretation Comments eGFR if (test code = 92397-7) 138 mL/min/((173/100 ).m2) >59 [facility] HealthEstimated Glomerular Filtration Rate (calc)2018-07-05 14:55:00* Test Item Value Reference Range Interpretation Comments Estimated Glomerular Filtration Rate (calc) (test code = 81938-9) 119 mL/min/((173/100).m2) >59 [facility] Healthcreatinine, mgmjf4628-75-28 14:55:00* Test Item Value Reference Range Interpretation Comments creatinine, serum (test code = 2160-0) 0.85 mg/dL 0.76-1.27 [facility] Healthurea nitrogen, fknrf2279-03-41 14:55:00* Test Item Value Reference Range Interpretation Comments urea nitrogen, blood (test code = 3094-0) 10 mg/dL 6-20 [facility] Healthblood glucose, fqiszm5945-10-40 14:55:00* Test Item Value Reference Range Interpretation Comments blood glucose, random (test code = 2339-0) 99 mg/dL 65-99 [facility] Healthimmature granulocytes, percentage of total cells, blood 2018-07-05 14:55:00* Test Item Value Reference Range Interpretation Comments immature granulocytes, percentage of total cells, bloo d (test code = 93671-4) 0 % [facility] Healthbasophil count, totlgvgc7515-01-45 14:55:00* Test Item Value Reference Range Interpretation Comments basophil count, absolute (test code = 21503-8) 0.0 x10E3/uL 0.0-0.2 [facility] HealthEosinophil Absolute Kzsuo0332-57-05 14:55:00* Test Item Value Reference Range Interpretation Comments Eosinophil Absolute Count (test code = 13438-5) 0.1 X10E3/UL 0.0-0. 4 [facility] Healthmonocyte count, blood, tcljzyaej8987-82-74 14:55:00* Test Item Value Reference Range Interpretation Comments monocyte count, blood, automated (test code = 742-7) 0.6 X10E3/UL 0 .1-0.9 [facility] Healthlymphocyte count, blood, vtshpvowo8122-00-95 14:55:00* Test Item Value Reference Range Interpretation Comments lymphocyte count, blood, automated (test code = 731-0) 1.1 X10E3/UL 0.7-3.1 [facility] HealthAbsolute Jatxsimgiqg1164-93-61 14:55:00* Test Item Value Reference Range Interpretation Comments Absolute Neutrophils (test code = 26900-7) 3.0 X10E3/UL 1.4-7.0 [facility] Healthbasophils as percent of blood fivmhetopz1646-44-65 14:55:00* Test Item Value Reference Range Interpretation Comments basophils as percent of blood leukocytes (test code = 707-0) 0 % [facility] Healtheosinophils as percent of blood tmdbwiilge8699-30-07 14:55:00* Test Item Value Reference Range Interpretation Comments eosinophils as percent of blood leukocytes (test code = 713-8) 1 % [facility] Healthmonocytes as percent of blood zpgseikyge6233-06-59 14:55:00* Test Item Value Reference Range Interpretation Comments monocytes as percent of blood leukocytes (test code = 5905-5) 12 % [facility] Healthlymphocytes as percent of blood slfogpywss2840-44-42 14:55:00* Test Item Value Reference Range Interpretation Comments lymphocytes as percent of blood leukocytes (test code = 736-9) 23 % [facility] Healthneutrophils as percent of blood ayuxkjdiwu6411-35-60 14:55:00* Test Item Value Reference Range Interpretation Comments neutrophils as percent of blood leukocytes (test code = 770-8) 64 % [facility] Healthplatelet jihud1263-61-64 14:55:00* Test Item Value Reference Range Interpretation Comments platelet count (test code = 777-3) 266 X10E3/UL 150-379 [facility] Healthred blood cell distribution xjisq1017-85-96 14:55:00* Test Item Value Reference Range Interpretation Comments red blood cell distribution width (test code = 788-0) 13.5 % 12.3-15.4 [facility] corpuscular hemoglobin concentration, [id number] 14:55:00* Test Item Value Reference Range Interpretation Comments mean corpuscular hemoglobin concentration, RBC (test code = 786-4) 34.3 G/DL 31.5-35.7 [facility] corpuscular hemoglobin, LYS6527-09-60 14:55:00* Test Item Value Reference Range Interpretation Comments mean corpuscular hemoglobin, RBC (test code = 785-6) 31.7 pg 2 6.6-33.0 [facility] corpuscular volume, DBP1738-92-62 14:55:00* Test Item Value Reference Range Interpretation Comments mean corpuscular volume, RBC (test code = 787-2) 93 fL 79-97 [facility] Healthhematocrit, ilnfz3327-35-81 14:55:00* Test Item Value Reference Range Interpretation Comments hematocrit, blood (test code = 4544-3) 44.6 % 37.5-51.0 [facility] Healthhemoglobin, mvxpj0799-66-39 14:55:00* Test Item Value Reference Range Interpretation Comments hemoglobin, blood (test code = 718-7) 15.3 g/dL 13.0-17.7 [facility] Healtherythrocyte (RBC) fwajc1111-82-56 14:55:00* Test Item Value Reference Range Interpretation Comments erythrocyte (RBC) count (test code = 789-8) 4.82 X10E6/UL 4.14-5.80 [facility] Healthleukocyte count, dyfcz4413-66-03 14:55:00* Test Item Value Reference Range Interpretation Comments leukocyte count, blood (test code = 6690-2) 4.9 X10E3/UL 3.4-10.8 [facility] HealthCD4/CD8 kvtvt3814-05-83 14:55:00* Test Item Value Reference Range Interpretation Comments CD4/CD8 ratio (test code = 20630) 0.31 0.92-3.72 L [facility] HealthT-suppressor cells (CD8) as percent of blood lymphocytes 2018-07-05 14:55:00* Test Item Value Reference Range Interpretation Comments T-suppressor cells (CD8) as percent of blood lymphocyt es (test code = 3517) 54.9 % 12.0-35.5 H [facility] Healthabsolute [id number] 14:55:00* Test Item Value Reference Range Interpretation Comments absolute CD8 (test code = 51403) 604 109-897 [facility] HealthT-helper cells (CD4) as percent of blood lymphocytes 2018-07-05 14:55:00* Test Item Value Reference Range Interpretation Comments T-helper cells (CD4) as percent of blood lymphocytes ( test code = 8123-2) 17.0 % 30.8-58.5 L [facility] HealthT-helper cells (CD4) xwjpz4632-67-02 14:55:00* Test Item Value Reference Range Interpretation Comments T-helper cells (CD4) count (test code = 21732-2) 187 /UL 359-1 519 L [facility] Healthrapid plasma reagin antibody, bfcax9276-58-75 16:51:00* Test Item Value Reference Range Interpretation Comments rapid plasma reagin antibody, serum (test code = 5291-0) Non Reactive Non Reactive [facility] HealthHIV-1RNA, serum, by PCR, zurqlgnmqxzf0787-01-50 16:51:00 * Test Item Value Reference Range Interpretation Comments HIV-1RNA, serum, by PCR, quantitative (test code = 40314) 1440 /mL [facility] HealthLDL cholesterol, hiafz3058-54-70 16:51:00* Test Item Value Reference Range Interpretation Comments LDL cholesterol, serum (test code = 2089-1) 86 mg/dL 0-99 [facility]very low density ejjqepvcgbud9014-59-31 16:51:00* Test Item Value Reference Range Interpretation Comments very low density lipoproteins (test code = 2091-7) 46 mg/dL 5-4 0 H [facility] HealthHDL cholesterol, wrkty5482-46-63 16:51:00* Test Item Value Reference Range Interpretation Comments HDL cholesterol, serum (test code = 2085-9) 37 mg/dL >39 L [facility]althtriglyceride, serum, ojthngc4278-04-34 16:51:00* Test Item Value Reference Range Interpretation Comments triglyceride, serum, fasting (test code = 2571-8) 230 mg/dL 0-14 9 H [facility] Healthcholesterol, encof1949-13-01 16:51:00* Test Item Value Reference Range Interpretation Comments cholesterol, serum (test code = 2093-3) 169 mg/dL 100-199 [facility] Healthalanine aminotransferase (SGPT), haari3452-04-95 16:51:00 * Test Item Value Reference Range Interpretation Comments alanine aminotransferase (SGPT), serum (test code = 1742-6) 71 1/L 0-44 H [facility] Healthaspartate aminotransferase (SGOT), iwaom5313-89-69 16:51:00* Test Item Value Reference Range Interpretation Comments aspartate aminotransferase (SGOT), serum (test code = 1920-8) 36 1/ L 0-40 [facility] Healthalkaline phosphatase, euuei1011-46-78 16:51:00* Test Item Value Reference Range Interpretation Comments alkaline phosphatase, serum (test code = 1783-0) 77 1/L 39-11 7 [facility] Healthbilirubin, serum, xfoqq3508-79-50 16:51:00* Test Item Value Reference Range Interpretation Comments bilirubin, serum, total (test code = 1975-2) 0.7 mg/dL 0.0-1.2 [facility] Healthalbumin/globulin ratio, wvlgw9543-80-97 16:51:00* Test Item Value Reference Range Interpretation Comments albumin/globulin ratio, serum (test code = 1759-0) 1.1 1.2 -2.2 L [facility] Healthglobulin, gzffi1537-96-16 16:51:00* Test Item Value Reference Range Interpretation Comments globulin, serum (test code = 2336-6) 4.3 1.5-4.5 [facility] Healthalbumin, ardwf6962-49-20 16:51:00* Test Item Value Reference Range Interpretation Comments albumin, serum (test code = 1751-7) 4.6 g/dL 3.5-5.5 [facility] Healthprotein, total, obkus1807-03-75 16:51:00* Test Item Value Reference Range Interpretation Comments protein, total, serum (test code = 2885-2) 8.9 g/dL 6.0-8.5 H [facility] Healthcalcium, bcwpr1625-90-03 16:51:00* Test Item Value Reference Range Interpretation Comments calcium, serum (test code = 2000-8) 9.8 mg/dL 8.7-10.2 [facility] Healthcarbon dioxide, venous tphmx4807-71-69 16:51:00* Test Item Value Reference Range Interpretation Comments carbon dioxide, venous blood (test code = 2027-1) 25 mmol/L 20-2 9 [facility] Healthchloride, rumau9270-08-93 16:51:00* Test Item Value Reference Range Interpretation Comments chloride, serum (test code = 2075-0) 100 mmol/L 96-106 [facility] Healthpotassium, eixnz1595-55-33 16:51:00* Test Item Value Reference Range Interpretation Comments potassium, serum (test code = 2823-3) 4.8 mmol/L 3.5-5.2 [facility] Healthsodium, qwvmm3351-93-87 16:51:00* Test Item Value Reference Range Interpretation Comments sodium, serum (test code = 2951-2) 138 mmol/L 134-144 [facility] Healthurea nitrogen/creatinine ratio, xvywz4541-99-87 16:51:00 * Test Item Value Reference Range Interpretation Comments urea nitrogen/creatinine ratio, serum (test code = 3097-3) 10 9-20 [facility] HealtheGFR if Axdzqcku2205-45-72 16:51:00* Test Item Value Reference Range Interpretation Comments eGFR if (test code = 98118-6) 108 mL/min/((173/100 ).m2) >59 [facility] HealthEstimated Glomerular Filtration Rate (calc)2018-03-22 16:51:00* Test Item Value Reference Range Interpretation Comments Estimated Glomerular Filtration Rate (calc) (test code = 97726-3) 93 mL/min/((173/100).m2) >59 [facility] Healthcreatinine, [id number] 16:51:00* Test Item Value Reference Range Interpretation Comments creatinine, serum (test code = 2160-0) 1.09 mg/dL 0.76-1.27 [facility] Healthurea nitrogen, zifpz5187-20-59 16:51:00* Test Item Value Reference Range Interpretation Comments urea nitrogen, blood (test code = 3094-0) 11 mg/dL 6-20 [facility] Healthblood glucose, hhtpsi2731-82-53 16:51:00* Test Item Value Reference Range Interpretation Comments blood glucose, random (test code = 2339-0) 104 mg/dL 65-99 H [facility] Healthimmature granulocytes, percentage of total cells, blood 2018-03-22 16:51:00* Test Item Value Reference Range Interpretation Comments immature granulocytes, percentage of total cells, bloo d (test code = 93230-1) 0 % [facility] Healthbasophil count, vcvkovay8405-99-64 16:51:00* Test Item Value Reference Range Interpretation Comments basophil count, absolute (test code = 77644-1) 0.0 x10E3/uL 0.0-0.2 [facility] HealthEosinophil Absolute Vvapv1541-73-61 16:51:00* Test Item Value Reference Range Interpretation Comments Eosinophil Absolute Count (test code = 52684-1) 0.1 X10E3/UL 0.0-0. 4 [facility] Healthmonocyte count, blood, yrrzgavfw7760-19-72 16:51:00* Test Item Value Reference Range Interpretation Comments monocyte count, blood, automated (test code = 742-7) 0.6 X10E3/UL 0 .1-0.9 [facility] Healthlymphocyte count, blood, jimzrhgvk5158-84-52 16:51:00* Test Item Value Reference Range Interpretation Comments lymphocyte count, blood, automated (test code = 731-0) 1.3 X10E3/UL 0.7-3.1 [facility] HealthAbsolute Nazjgoqproh5604-94-39 16:51:00* Test Item Value Reference Range Interpretation Comments Absolute Neutrophils (test code = 21076-0) 4.0 X10E3/UL 1.4-7.0 [facility] Healthbasophils as percent of blood vmajwxrtvc5366-48-17 16:51:00* Test Item Value Reference Range Interpretation Comments basophils as percent of blood leukocytes (test code = 707-0) 0 % [facility] Healtheosinophils as percent of blood uebnhzczgr0705-45-51 16:51:00* Test Item Value Reference Range Interpretation Comments eosinophils as percent of blood leukocytes (test code = 713-8) 1 % [facility] Healthmonocytes as percent of blood nmkgaqsotu6563-95-79 16:51:00* Test Item Value Reference Range Interpretation Comments monocytes as percent of blood leukocytes (test code = 5905-5) 11 % [facility] Healthlymphocytes as percent of blood vicdwujmfr6492-93-71 16:51:00* Test Item Value Reference Range Interpretation Comments lymphocytes as percent of blood leukocytes (test code = 736-9) 22 % [facility] Healthneutrophils as percent of blood feeclxppjs9206-50-22 16:51:00* Test Item Value Reference Range Interpretation Comments neutrophils as percent of blood leukocytes (test code = 770-8) 66 % [facility] Healthplatelet xilwz1042-62-18 16:51:00* Test Item Value Reference Range Interpretation Comments platelet count (test code = 777-3) 303 X10E3/UL 150-379 [facility] Healthred blood cell distribution rpbmq0132-63-33 16:51:00* Test Item Value Reference Range Interpretation Comments red blood cell distribution width (test code = 788-0) 14.0 % 12.3-15.4 [facility] corpuscular hemoglobin concentration, [id number] 16:51:00* Test Item Value Reference Range Interpretation Comments mean corpuscular hemoglobin concentration, RBC (test code = 786-4) 34.6 G/DL 31.5-35.7 [facility] corpuscular hemoglobin, [id number] 16:51:00* Test Item Value Reference Range Interpretation Comments mean corpuscular hemoglobin, RBC (test code = 785-6) 31.1 pg 2 6.6-33.0 [facility]mean corpuscular volume, [id number] 16:51:00* Test Item Value Reference Range Interpretation Comments mean corpuscular volume, RBC (test code = 787-2) 90 fL 79-97 [facility] Healthhematocrit, idnqe5143-62-91 16:51:00* Test Item Value Reference Range Interpretation Comments hematocrit, blood (test code = 4544-3) 43.4 % 37.5-51.0 [facility] Healthhemoglobin, ltiom1949-56-86 16:51:00* Test Item Value Reference Range Interpretation Comments hemoglobin, blood (test code = 718-7) 15.0 g/dL 13.0-17.7 [facility] Healtherythrocyte (RBC) pjnjb3826-99-21 16:51:00* Test Item Value Reference Range Interpretation Comments erythrocyte (RBC) count (test code = 789-8) 4.82 X10E6/UL 4.14-5.80 [facility] Healthleukocyte count, iocxn0671-08-41 16:51:00* Test Item Value Reference Range Interpretation Comments leukocyte count, blood (test code = 6690-2) 6.0 X10E3/UL 3.4-10.8 [facility] HealthCD4/CD8 jjsfd0565-83-92 16:51:00* Test Item Value Reference Range Interpretation Comments CD4/CD8 ratio (test code = 05006) 0.23 0.92-3.72 L [facility] HealthT-suppressor cells (CD8) as percent of blood lymphocytes 2018-03-22 16:51:00* Test Item Value Reference Range Interpretation Comments T-suppressor cells (CD8) as percent of blood lymphocyt es (test code = 3517) 58.7 % 12.0-35.5 H [facility] Healthabsolute [id number] 16:51:00* Test Item Value Reference Range Interpretation Comments absolute CD8 (test code = 17574) 468 109-307 [facility] HealthT-helper cells (CD4) as percent of blood lymphocytes 2018-03-22 16:51:00* Test Item Value Reference Range Interpretation Comments T-helper cells (CD4) as percent of blood lymphocytes ( test code = 8123-2) 13.6 % 30.8-58.5 L [facility] HealthT-helper cells (CD4) cfalz8714-45-60 16:51:00* Test Item Value Reference Range Interpretation Comments T-helper cells (CD4) count (test code = 54153-4) 177 /UL 359-1 519 L [facility] HealthQuantiferon Gold TB blood test for tuberculosis screening 2018-01-25 16:23:00* Test Item Value Reference Range Interpretation Comments Quantiferon Gold TB blood test for tuberculosis screen ing (test code = 76449-6) Negative Negative [facility] Healthalanine aminotransferase (SGPT), tmvno0402-62-35 16:14:00 * Test Item Value Reference Range Interpretation Comments alanine aminotransferase (SGPT), serum (test code = 1742-6) 94 1/L 0-44 H [facility] Healthaspartate aminotransferase (SGOT), mmnab4742-46-54 16:14:00* Test Item Value Reference Range Interpretation Comments aspartate aminotransferase (SGOT), serum (test code = 1920-8) 40 1/ L 0-40 [facility] Healthalkaline phosphatase, fhjvr1091-03-33 16:14:00* Test Item Value Reference Range Interpretation Comments alkaline phosphatase, serum (test code = 1783-0) 80 1/L 39-11 7 [facility] Healthbilirubin, serum, ancel3847-42-21 16:14:00* Test Item Value Reference Range Interpretation Comments bilirubin, serum, total (test code = 1975-2) 0.8 mg/dL 0.0-1.2 [facility] Healthalbumin/globulin ratio, kddll2946-46-55 16:14:00* Test Item Value Reference Range Interpretation Comments albumin/globulin ratio, serum (test code = 1759-0) 1.0 1.2 -2.2 L [facility] Healthglobulin, pyuqk5734-32-99 16:14:00* Test Item Value Reference Range Interpretation Comments globulin, serum (test code = 2336-6) 4.5 1.5-4.5 [facility] Healthalbumin, hdlwd2503-23-87 16:14:00* Test Item Value Reference Range Interpretation Comments albumin, serum (test code = 1751-7) 4.3 g/dL 3.5-5.5 [facility] Healthprotein, total, bnixo9918-65-13 16:14:00* Test Item Value Reference Range Interpretation Comments protein, total, serum (test code = 2885-2) 8.8 g/dL 6.0-8.5 H [facility] Healthcalcium, firvx3285-03-16 16:14:00* Test Item Value Reference Range Interpretation Comments calcium, serum (test code = 2000-8) 9.2 mg/dL 8.7-10.2 [facility] Healthcarbon dioxide, venous [id number] 16:14:00* Test Item Value Reference Range Interpretation Comments carbon dioxide, venous blood (test code = 2027-1) 25 mmol/L 20-2 9 [facility] Healthchloride, cuoti6087-82-42 16:14:00* Test Item Value Reference Range Interpretation Comments chloride, serum (test code = 2075-0) 94 mmol/L 96-106 L [facility] Healthpotassium, ecadh3344-10-65 16:14:00* Test Item Value Reference Range Interpretation Comments potassium, serum (test code = 2823-3) 4.4 mmol/L 3.5-5.2 [facility] Healthsodium, jkpmu1690-37-64 16:14:00* Test Item Value Reference Range Interpretation Comments sodium, serum (test code = 2951-2) 136 mmol/L 134-144 [facility] Healthurea nitrogen/creatinine ratio, oydfd8682-56-77 16:14:00 * Test Item Value Reference Range Interpretation Comments urea nitrogen/creatinine ratio, serum (test code = 3097-3) 11 9-20 [facility] HealtheGFR if Nkvubfem3918-54-30 16:14:00* Test Item Value Reference Range Interpretation Comments eGFR if (test code = 11672-2) 138 mL/min/((173/100 ).m2) >59 [facility] HealthEstimated Glomerular Filtration Rate (calc)2018-01-25 16:14:00* Test Item Value Reference Range Interpretation Comments Estimated Glomerular Filtration Rate (calc) (test code = 62763-9) 119 mL/min/((173/100).m2) >59 [facility] Healthcreatinine, [id number] 16:14:00* Test Item Value Reference Range Interpretation Comments creatinine, serum (test code = 2160-0) 0.87 mg/dL 0.76-1.27 [facility] Healthurea nitrogen, [id number] 16:14:00* Test Item Value Reference Range Interpretation Comments urea nitrogen, blood (test code = 3094-0) 10 mg/dL 6-20 [facility]ood glucose, pmyosx2000-07-33 16:14:00* Test Item Value Reference Range Interpretation Comments blood glucose, random (test code = 2339-0) 96 mg/dL 65-99 [facility] HealthBlood Ddbrztq8456-80-96 17:22:00* Test Item Value Reference Range Interpretation Comments Blood Culture (test code = 85366466) NO GROWTH AFTER 5 DAYS, [facility] [id number] 20:49:00 [place] [address] Patient Name: RICK GORDON MR #: [id number] : 1 Age/Sex: 27/M Req #: [id number] Adm Physician: Ordered by: JULIÁN LAGUNAS [employer] Report #: [id number] Location: ER Room/B ed: Procedure: [id number] CT/CT ABDOMEN/PELVIS W Exam Date: 01/13/18 Exam Time: 2019 REPORT STATUS: Signed EXAMINATION: CT of the abdomen and pelvis with contrast. TECHNIQU E: Helical CT images of the abdomen and pelvis were performed from the lung b ases to the lesser trochanters after the intravenous administration of 100 cc of Omnipaque 300 and the oral administration of enteric contrast. Coronal and sagittal reformatted images were obtained.Dose modulation, iterative recons truction, and/or weight based adjustment of the mA/kV was utilized to reduce t he radiation dose to as low as reasonably achievable. COMPARISON: None. CLINICAL HISTORY:Abdominal pain DISCUSSION: ABDOMEN/PELVIS: LOWER THORAX:Unremarkable. HEPATOBILIARY: No focal hepatic lesions. No intra-or extrahepatic biliary ductal dilation. Cholecystectomy. Pneumobilia. SPLEEN: No splenomegaly. PANCREAS: No focal masses or ductal dilatati on. ADRENALS: No adrenal nodules. KIDNEYS/URETERS: No hydronephrosis, stones, or solid mass lesions. PELVIC ORGANS/BLADDER: The bladder is genesis l. PERITONEUM/RETROPERITONEUM: No free air or fluid. LYMPH NODES: No intra-abdominal, retroperitoneal, pelvic or inguinal lymphadenopathy. VE SSELS: Unremarkable. GI TRACT: Possible thickening of the rectum and sigmoi d colon versus distention. Normal appendix. No obstruction. BONES AN D SOFT TISSUE: No bony destructive lesions. No soft tissue abnormalities. IMPRESSION: No perirectal abscess. Mild distal colonic thickeni ng (which could reflect colitis) versus nondistention. Signed by: Dr. And rew Neo M.D. on 01/13/2018 8:56 PM Dictated By: JOHN MUNGUIA MD E lectronically Signed By: JOHN MUNGUIA MD on 01/13/182055 Transcribed By: Archana PEREZ on 01/13/182055 COPY TO: JULIÁN LAGUNAS [employer] Urine WBC 2018-01-13 19:59:00* Test Item Value Reference Range Interpretation Comments Urine WBC (test code = 5821-4) NONE 0-5 [facility] [id number] 19:59:00* Test Item Value Reference Range Interpretation Comments Urine RBC (test code = 57383-6) 0-5 0-5 [facility] Kmnkpioi2621-51-20 19:59:00* Test Item Value Reference Range Interpretation Comments Urine Bacteria (test code = 43485-5) NONE NONE [facility] Epithelial Tekat6488-53-76 19:59:00 * Test Item Value Reference Range Interpretation Comments Urine Epithelial Cells (test code = 37285-7) NONE NONE [facility] Fxdxk8643-86-97 19:59:00* Test Item Value Reference Range Interpretation Comments Urine Mucus (test code = 8247-9) MANY RARE H [facility] Yyyev1490-15-80 19:59:00* Test Item Value Reference Range Interpretation Comments Urine Mucus (test code = 8247-9) MANY RARE H [facility] Srceg9242-88-08 19:49:00* Test Item Value Reference Range Interpretation Comments Urine Color (test code = 5778-6) YELLOW YELLOW [facility] Qdtwxro5658-77-19 19:49:00* Test Item Value Reference Range Interpretation Comments Urine Clarity (test code = 27748-7) SL CLOUDY CLEAR H [facility] CenterU[facility] Specific Zssxgph4938-80-49 19:49:00 * Test Item Value Reference Range Interpretation Comments Urine Specific [place] (test code = 5811-5) 1.015 1.010-1.[address] [facility] [id number] 19:49:00* Test Item Value Reference Range Interpretation Comments Urine pH (test code = 59680-5) 6 5-7 [facility] Leukocyte Fspslnhw1500-00-07 19:49:00* Test Item Value Reference Range Interpretation Comments Urine Leukocyte Esterase (test code = 5799-2) NEGATIVE NEGATIVE [facility] Ymlydoo3138-89-02 19:49:00* Test Item Value Reference Range Interpretation Comments Urine Nitrite (test code = 66755-9) NEGATIVE NEGATIVE [facility] Vtffjht7824-01-47 19:49:00* Test Item Value Reference Range Interpretation Comments Urine Protein (test code = 5804-0) NEGATIVE NEGATIVE [facility] Glucose (UA)2018-01-13 19:49:00* Test Item Value Reference Range Interpretation Comments Urine Glucose (UA) (test code = 2349-9) NEGATIVE NEGATIVE [facility] Jnbrzxz7885-30-02 19:49:00* Test Item Value Reference Range Interpretation Comments Urine Ketones (test code = 35519-5) NEGATIVE NEGATIVE [facility] Ngpvzwugyvai3637-11-43 19:49:00* Test Item Value Reference Range Interpretation Comments Urine Urobilinogen (test code = 98708-5) 0.2 0.2-1 [facility] Dtmzlwqng5547-75-62 19:49:00* Test Item Value Reference Range Interpretation Comments Urine Bilirubin (test code = 1978-6) NEGATIVE NEGATIVE [facility] Lubzr1742-35-23 19:49:00* Test Item Value Reference Range Interpretation Comments Urine Blood (test code = 43818-1) TRACE NEGATIVE H [facility] CenterDifferential Total Cells Counted 2018-01-13 18:33:00* Test Item Value Reference Range Interpretation Comments Differential Total Cells Counted (test code = Differen tial Total Cells Counted) 100 [facility] CenterNeutrophils % (Manual)2018-01-13 18:33:00 * Test Item Value Reference Range Interpretation Comments Neutrophils % (Manual) (test code = 39991-1) 75 40-[address] [facility] CenterLymphocytes % (Manual)2018-01-13 18:33:00 * Test Item Value Reference Range Interpretation Comments Lymphocytes % (Manual) (test code = 737-7) 9 19-[address] [facility] CenterMonocytes % (Manual)2018-01-13 18:33:00* Test Item Value Reference Range Interpretation Comments Monocytes % (Manual) (test code = 744-3) 9 3.4-9.0 [facility] CenterEosinophils % (Manual)2018-01-13 18:33:00 * Test Item Value Reference Range Interpretation Comments Eosinophils % (Manual) (test code = 714-6) 1 0-7 [facility] CenterReactive Ouymnfjavvp3649-77-94 18:33:00* Test Item Value Reference Range Interpretation Comments Reactive Lymphocytes (test code = 05191-9) 6 [facility] CenterPlatelet Navovqug8599-11-33 18:33:00* Test Item Value Reference Range Interpretation Comments Platelet Estimate (test code = 03922-7) ADEQUATE [facility] CenterPlatelet Morphology Ibwsiuu0382-28-62 18:33:00* Test Item Value Reference Range Interpretation Comments Platelet Morphology Comment (test code = 58572-5) NORMAL [facility] CenterRed Cell Morphology Cyqxkpb0432-79-04 18:33:00* Test Item Value Reference Range Interpretation Comments Red Cell Morphology Comment (test code = 6742-1) NORMAL [facility] CenterDifferential Total Cells Counted 2018-01-13 18:33:00* Test Item Value Reference Range Interpretation Comments Differential Total Cells Counted (test code = Differev tial Total Cells Counted) 100 [facility] CenterNeutrophils % (Manual)2018-01-13 18:33:00 * Test Item Value Reference Range Interpretation Comments Neutrophils % (Manual) (test code = 53276-6) 75 40-[address] [facility] CenterLymphocytes % (Manual)2018-01-13 18:33:00 * Test Item Value Reference Range Interpretation Comments Lymphocytes % (Manual) (test code = 737-7) 9 19-[address] [facility] CenterMonocytes % (Manual)2018-01-13 18:33:00* Test Item Value Reference Range Interpretation Comments Monocytes % (Manual) (test code = 744-3) 9 3.4-9.0 [facility] CenterEosinophils % (Manual)2018-01-13 18:33:00 * Test Item Value Reference Range Interpretation Comments Eosinophils % (Manual) (test code = 714-6) 1 0-7 [facility] CenterReactive Huhujaimunb3087-90-68 18:33:00* Test Item Value Reference Range Interpretation Comments Reactive Lymphocytes (test code = 76675-3) 6 [facility] CenterPlatelet Fefxhllv1029-32-84 18:33:00* Test Item Value Reference Range Interpretation Comments Platelet Estimate (test code = 55144-5) ADEQUATE [facility] CenterPlatelet Morphology Edvvguc3775-90-69 18:33:00* Test Item Value Reference Range Interpretation Comments Platelet Morphology Comment (test code = 47174-6) NORMAL [facility] CenterRed Cell Morphology Yhkdbqn6497-45-02 18:33:00* Test Item Value Reference Range Interpretation Comments Red Cell Morphology Comment (test code = 6742-1) NORMAL [facility] CenterProthrombin Zsmt3956-80-08 18:18:00* Test Item Value Reference Range Interpretation Comments Prothrombin Time (test code = 5902-2) 13.8 11.9-14.5 [facility] CenterProthromb Time International Ratio 2018-01-13 18:18:00* Test Item Value Reference Range Interpretation Comments Prothromb Time International Ratio (test code = 6301-6) 1.15 Oral Anticoagulant Therapy INR Values:1. Low Intensity Therapy 1.5 - 2.02 . Moderate Intensity Therapy 2.0 - 3.03. High Intensity Therapy(1) 2.5 - 3. 54. High Intensity Therapy(2) 3.0 - 4.05. Panic Value INR > 5.0 [facility] CenterActivated Partial Thromboplast Time 2018-01-13 18:18:00* Test Item Value Reference Range Interpretation Comments Activated Partial Thromboplast Time (test code = 31198-0) 34.5 23.8-35.5 [facility] CenterProthrombin Hmhy5380-01-31 18:18:00* Test Item Value Reference Range Interpretation Comments Prothrombin Time (test code = 5902-2) 13.8 11.9-14.5 [facility] CenterProthromb Time International Ratio 2018-01-13 18:18:00* Test Item Value Reference Range Interpretation Comments Prothromb Time International Ratio (test code = 6301-6) 1.15 Oral Anticoagulant Therapy INR Values:1. Low Intensity Therapy 1.5 - 2.02 . Moderate Intensity Therapy 2.0 - 3.03. High Intensity Therapy(1) 2.5 - 3. 54. High Intensity Therapy(2) 3.0 - 4.05. Panic Value INR > 5.0 [facility] CenterActivated Partial Thromboplast Time 2018-01-13 18:18:00* Test Item Value Reference Range Interpretation Comments Activated Partial Thromboplast Time (test code = 09698-2) 34.5 23.8-35.5 [facility] Kongs8339-48-80 18:02:00* Test Item Value Reference Range Interpretation Comments Sodium Level (test code = 2951-2) 137 136-145 [facility] CenterPotassium Etjla2484-40-82 18:02:00* Test Item Value Reference Range Interpretation Comments Potassium Level (test code = 2823-3) 3.9 3.5-5.1 [facility] CenterChloride Dklag1376-98-95 18:02:00* Test Item Value Reference Range Interpretation Comments Chloride Level (test code = 2075-0) 101 98-107 [facility] CenterCarbon Dioxide Ddbzg3458-18-72 18:02:00* Test Item Value Reference Range Interpretation Comments Carbon Dioxide Level (test code = 2028-9) 27 22-29 [facility] CenterAnion Wte4419-74-20 18:02:00* Test Item Value Reference Range Interpretation Comments Anion Gap (test code = 56747-9) 12.9 8-16 [facility] CenterBlood Urea Qxttzypb4991-03-10 18:02:00* Test Item Value Reference Range Interpretation Comments Blood Urea Nitrogen (test code = 3094-0) 10 7-26 [facility] CenterCreatinine2018-09-05 18:02:00* Test Item Value Reference Range Interpretation Comments Creatinine (test code = 2160-0) 1.11 0.72-1.25 [facility] CenterBUN/Creatinine Slkud5889-16-34 18:02:00* Test Item Value Reference Range Interpretation Comments BUN/Creatinine Ratio (test code = 3097-3) 9 6-25 [facility] CenterEstimat Glomerular Filtration Rate 2018-01-13 18:02:00* Test Item Value Reference Range Interpretation Comments Estimat Glomerular Filtration Rate (test code = 22152-0) 60- >60 Ranges were taken from the National Kidney Disease Education Program and the [facility] literature.Reference ranges:60 or greater: Ukllva44-05 ( for 3 consecutive months): Chronic kidney disease 15 or less: Kidney failureSt. Joseph Medical CenterGlucose Tyepd1944-83-25 18:02:00* Test Item Value Reference Range Interpretation Comments Glucose Level (test code = AGS6651) 98 74-118 [facility] CenterCalcium Rkuwr7690-78-98 18:02:00* Test Item Value Reference Range Interpretation Comments Calcium Level (test code = 31401-3) 9.4 8.4-10.2 [facility] CenterMagnesium Kjzhf8019-44-61 18:02:00* Test Item Value Reference Range Interpretation Comments Magnesium Level (test code = 42494-6) 2.0 1.3-2.1 [facility] CenterTotal Svfwbsqvx3297-70-33 18:02:00* Test Item Value Reference Range Interpretation Comments Total Bilirubin (test code = 1975-2) 1.1 0.2-1.2 [facility] CenterAspartate Amino Transf (AST/SGOT) 2018-01-13 18:02:00* Test Item Value Reference Range Interpretation Comments Aspartate Amino Transf (AST/SGOT) (test code = Aspartate Amino Transf (AST/SGOT)) 99 5-[address] [facility] CenterAlanine Aminotransferase (ALT/SGPT) 2018-01-13 18:02:00* Test Item Value Reference Range Interpretation Comments Alanine Aminotransferase (ALT/SGPT) (test code = 1742-6) 183 0-[address] [facility] CenterTotal Yvaqqpo0505-77-92 18:02:00* Test Item Value Reference Range Interpretation Comments Total Protein (test code = 2885-2) 9.8 6.5-8.[address] [facility] CenterAlbumin2018-09-05 18:02:00* Test Item Value Reference Range Interpretation Comments Albumin (test code = 1751-7) 3.8 3.5-5.0 [facility] CenterGlobulin2018-09-05 18:02:00* Test Item Value Reference Range Interpretation Comments Globulin (test code = 05654-1) 6.0 2.3-3.[address] [facility] CenterAlbumin/Globulin Thfqz9262-82-22 18:02:00 * Test Item Value Reference Range Interpretation Comments Albumin/Globulin Ratio (test code = 1759-0) 0.6 0.8-2.[address] [facility] CenterAlkaline Inamzctpnhf8763-83-97 18:02:00* Test Item Value Reference Range Interpretation Comments Alkaline Phosphatase (test code = 6768-6) 93 40-150 [facility] CenterLactic Acid Ejjfu1927-78-59 17:53:00* Test Item Value Reference Range Interpretation Comments Lactic Acid Level (test code = Lactic Acid Level) 10.2 4.5- 19.8 [facility]tool Occult Cqfdp4627-62-51 17:53:00* Test Item Value Reference Range Interpretation Comments Stool Occult Blood (test code = 2335-8) POSITIVE NEGATIVE H [facility] CenterLactic Acid Kxnbi1661-55-78 17:53:00* Test Item Value Reference Range Interpretation Comments Lactic Acid Level (test code = Lactic Acid Level) 10.2 4.5- 19.8 [facility] Occult Qwgif8884-14-66 17:53:00* Test Item Value Reference Range Interpretation Comments Stool Occult Blood (test code = 2335-8) POSITIVE NEGATIVE H [facility] CenterWhite Blood Zgooo5965-69-89 17:30:00* Test Item Value Reference Range Interpretation Comments White Blood Count (test code = 6690-2) 7.71 4.8-10.8 [facility] CenterRed Blood Ekrrn9789-95-86 17:30:00* Test Item Value Reference Range Interpretation Comments Red Blood Count (test code = 789-8) 4.63 4.3-5.7 [facility] CenterHemoglobin2018-09-05 17:30:00* Test Item Value Reference Range Interpretation Comments Hemoglobin (test code = 35847-3) 14.4 14.0-18.0 [facility] CenterHematocrit2018-09-05 17:30:00* Test Item Value Reference Range Interpretation Comments Hematocrit (test code = 4544-3) 42.9 38.2-49.6 [facility] CenterMean Corpuscular Wmvpkc8521-70-70 17:30:00* Test Item Value Reference Range Interpretation Comments Mean Corpuscular Volume (test code = 787-2) 92.7 81-99 [facility] CenterMean Corpuscular Cashzaiqyo1175-02-04 17:30:00* Test Item Value Reference Range Interpretation Comments Mean Corpuscular Hemoglobin (test code = 785-6) 31.1 28-32 [facility] CenterMean Corpuscular Hemoglobin Concent 2018-01-13 17:30:00* Test Item Value Reference Range Interpretation Comments Mean Corpuscular Hemoglobin Concent (test code = 786-4) 33.6 31-35 [facility] CenterRed Cell Distribution Qzfgs0864-94-22 17:30:00* Test Item Value Reference Range Interpretation Comments Red Cell Distribution Width (test code = 84614-0) 13.2 11.7 -14.4 [facility] CenterPlatelet Zinjr2105-57-98 17:30:00* Test Item Value Reference Range Interpretation Comments Platelet Count (test code = 777-3) 230 140-360 [facility] CenterNeutrophils (%) (Auto)2018-01-13 17:30:00 * Test Item Value Reference Range Interpretation Comments Neutrophils (%) (Auto) (test code = 00354-1) 72.9 38.7-80.0 [facility] CenterLymphocytes (%) (Auto)2018-01-13 17:30:00 * Test Item Value Reference Range Interpretation Comments Lymphocytes (%) (Auto) (test code = 736-9) 17.4 18.0-39.[address] [facility] CenterMonocytes (%) (Auto)2018-01-13 17:30:00* Test Item Value Reference Range Interpretation Comments Monocytes (%) (Auto) (test code = 5905-5) 8.6 4.4-11.3 [facility] CenterEosinophils (%) (Auto)2018-01-13 17:30:00 * Test Item Value Reference Range Interpretation Comments Eosinophils (%) (Auto) (test code = 713-8) 0.3 0.0-6.0 [facility] CenterBasophils (%) (Auto)2018-01-13 17:30:00* Test Item Value Reference Range Interpretation Comments Basophils (%) (Auto) (test code = 706-2) 0.3 0.0-1.0 [facility] CenterIM GRANULOCYTES %2018-01-13 17:30:00* Test Item Value Reference Range Interpretation Comments IM GRANULOCYTES % (test code = IM GRANULOCYTES %) 0.5 0.0- 1.0 [facility] CenterNeutrophils # (Auto)2018-01-13 17:30:00* Test Item Value Reference Range Interpretation Comments Neutrophils # (Auto) (test code = 751-8) 5.6 2.1-6.9 [facility] CenterLymphocytes # (Auto)2018-01-13 17:30:00* Test Item Value Reference Range Interpretation Comments Lymphocytes # (Auto) (test code = 66698-5) 1.3 1.0-3.2 [facility] CenterMonocytes # (Auto)2018-01-13 17:30:00* Test Item Value Reference Range Interpretation Comments Monocytes # (Auto) (test code = 742-7) 0.7 0.2-0.8 [facility] CenterEosinophils # (Auto)2018-01-13 17:30:00* Test Item Value Reference Range Interpretation Comments Eosinophils # (Auto) (test code = 711-2) 0.0 0.0-0.4 [facility] CenterBasophils # (Auto)2018-01-13 17:30:00* Test Item Value Reference Range Interpretation Comments Basophils # (Auto) (test code = 704-7) 0.0 0.0-0.1 [facility] CenterAbsolute Immature Granulocyte (auto 2018-01-13 17:30:00* Test Item Value Reference Range Interpretation Comments Absolute Immature Granulocyte (auto (shavon t code = Absolute Immature Granulocyte (auto) 0.04 0-0.1 [facility] Centerhepatitis A antibody, laqqb4779-24-49 09:59:00* Test Item Value Reference Range Interpretation Comments hepatitis A antibody, total (test code = 75) Positive Negative [facility] core antibody, pemnv0286-46-31 09:59:00* Test Item Value Reference Range Interpretation Comments hepatitis B core antibody, total (test code = 77) Negative Nega tive [facility]hepatitis B surface qafxijf7024-82-36 09:59:00* Test Item Value Reference Range Interpretation Comments hepatitis B surface antigen (test code = 79) Negative Negative [facility] Healthrap[facility] plasma reagin antibody, uonpm2681-21-80 09:59:00* Test Item Value Reference Range Interpretation Comments rapid plasma reagin antibody, serum (test code = 5291-0) Non Reactive Non Reactive [facility], ytkio7816-98-54 09:59:00* Test Item Value Reference Range Interpretation Comments hepatitis C antibody, serum (test code = 5199-5) 0.1 0.0-0 .9 [facility] HealthHIV-[facility] antibodies, western dwxd7728-31-95 09:59:00* Test Item Value Reference Range Interpretation Comments HIV-2 antibodies, western blot (test code = 38685) Negative Neg ative [facility] HealthHIV-1/HIV-2 Ab, wpdrs3466-64-46 09:59:00* Test Item Value Reference Range Interpretation Comments HIV-1/HIV-2 Ab, serum (test code = 3399) Positive Negative A [facility] (Chemiluminescent Microparticle Immuno Assay) 2017-12-22 09:59:00* Test Item Value Reference Range Interpretation Comments HIV-CMIA (Chemiluminescent Microparticle Immuno Assay) (test code = 009457) Reactive Non Reactive A [facility] antigen [id number] 09:59:00* Test Item Value Reference Range Interpretation Comments human leukocyte antigen B57 (test code = 328065) Negative [facility]htoxoplasma gondii antibody, CkM6919-70-58 09:59:00* Test Item Value Reference Range Interpretation Comments toxoplasma gondii antibody, IgG (test code = 2430) <3.0 0.0 -7.1 [facility] surface rmmjvhfa0525-98-58 09:59:00* Test Item Value Reference Range Interpretation Comments hepatitis B surface antibody (test code = 78) Reactive [facility] HealthHIV-1RNA, serum, by PCR, gfssmdgtslpc2053-64-78 09:59:00 * Test Item Value Reference Range Interpretation Comments HIV-1RNA, serum, by PCR, quantitative (test code = 73050) 058918 /m L [facility] Healthalanine aminotransferase (SGPT), nokyb2700-68-19 09:59:00 * Test Item Value Reference Range Interpretation Comments alanine aminotransferase (SGPT), serum (test code = 1742-6) 165 1/L 0-44 H [facility] Healthaspartate aminotransferase (SGOT), payfl2213-98-54 09:59:00* Test Item Value Reference Range Interpretation Comments aspartate aminotransferase (SGOT), serum (test code = 1920-8) 87 1/ L 0-40 H [facility] Healthalkaline phosphatase, vvyrv0580-68-45 09:59:00* Test Item Value Reference Range Interpretation Comments alkaline phosphatase, serum (test code = 1783-0) 78 1/L 39-11 7 [facility] Healthbilirubin, serum, xkqai6652-36-21 09:59:00* Test Item Value Reference Range Interpretation Comments bilirubin, serum, total (test code = 1975-2) 0.6 mg/dL 0.0-1.2 [facility] Healthalbumin/globulin ratio, finwc0538-51-70 09:59:00* Test Item Value Reference Range Interpretation Comments albumin/globulin ratio, serum (test code = 1759-0) 1.1 1.2 -2.2 L [facility] Healthglobulin, ncals9635-23-78 09:59:00* Test Item Value Reference Range Interpretation Comments globulin, serum (test code = 2336-6) 4.0 1.5-4.5 [facility] Healthalbumin, shuwx6493-98-92 09:59:00* Test Item Value Reference Range Interpretation Comments albumin, serum (test code = 1751-7) 4.2 g/dL 3.5-5.5 [facility] Healthprotein, total, rwgel5985-84-83 09:59:00* Test Item Value Reference Range Interpretation Comments protein, total, serum (test code = 2885-2) 8.2 g/dL 6.0-8.5 [facility] Healthcalcium, svekp9444-95-11 09:59:00* Test Item Value Reference Range Interpretation Comments calcium, serum (test code = 2000-8) 8.9 mg/dL 8.7-10.2 [facility] Healthcarbon dioxide, venous siftg3766-54-80 09:59:00* Test Item Value Reference Range Interpretation Comments carbon dioxide, venous blood (test code = 2027-1) 25 mmol/L 20-2 9 [facility] Healthchloride, bzslc0869-12-69 09:59:00* Test Item Value Reference Range Interpretation Comments chloride, serum (test code = 2075-0) 100 mmol/L 96-106 [facility] Healthpotassium, xrwcp2176-82-44 09:59:00* Test Item Value Reference Range Interpretation Comments potassium, serum (test code = 2823-3) 4.6 mmol/L 3.5-5.2 [facility] Healthsodium, pduay4458-85-81 09:59:00* Test Item Value Reference Range Interpretation Comments sodium, serum (test code = 2951-2) 137 mmol/L 134-144 [facility] Healthurea nitrogen/creatinine ratio, jymal5174-06-29 09:59:00 * Test Item Value Reference Range Interpretation Comments urea nitrogen/creatinine ratio, serum (test code = 3097-3) 7 9-20 L [facility] HealtheGFR if Vkdbnntf0189-77-24 09:59:00* Test Item Value Reference Range Interpretation Comments eGFR if (test code = 55466-6) 118 mL/min/((173/100 ).m2) >59 [facility] HealthEstimated Glomerular Filtration Rate (calc)2017-12-22 09:59:00* Test Item Value Reference Range Interpretation Comments Estimated Glomerular Filtration Rate (calc) (test code = 12264-4) 102 mL/min/((173/100).m2) >59 [facility] Healthcreatinine, cvwbo4634-73-94 09:59:00* Test Item Value Reference Range Interpretation Comments creatinine, serum (test code = 2160-0) 1.01 mg/dL 0.76-1.27 [facility] Healthurea nitrogen, foiqe0018-35-06 09:59:00* Test Item Value Reference Range Interpretation Comments urea nitrogen, blood (test code = 3094-0) 7 mg/dL 6-20 [facility] Healthblood glucose, ehwdmy9030-60-25 09:59:00* Test Item Value Reference Range Interpretation Comments blood glucose, random (test code = 2339-0) 106 mg/dL 65-99 [facility]mature granulocytes, percentage of total cells, blood 2017-12-22 09:59:00* Test Item Value Reference Range Interpretation Comments immature granulocytes, percentage of total cells, bloo d (test code = 48549-8) 0 % [facility] count, zzdxbwcj1075-11-43 09:59:00* Test Item Value Reference Range Interpretation Comments basophil count, absolute (test code = 40594-2) 0.0 x10E3/uL 0.0-0.2 [facility] HealthEosinophil Absolute Jvspe8301-35-47 09:59:00* Test Item Value Reference Range Interpretation Comments Eosinophil Absolute Count (test code = 00870-5) 0.1 X10E3/UL 0.0-0. 4 [facility] Healthmonocyte count, blood, ldhdhylzt0489-36-05 09:59:00* Test Item Value Reference Range Interpretation Comments monocyte count, blood, automated (test code = 742-7) 0.5 X10E3/UL 0 .1-0.9 [facility] Healthlymphocyte count, blood, czkwjzuai4878-47-11 09:59:00* Test Item Value Reference Range Interpretation Comments lymphocyte count, blood, automated (test code = 731-0) 1.2 X10E3/UL 0.7-3.1 [facility] HealthAbsolute Tldfnogpmrv6869-55-07 09:59:00* Test Item Value Reference Range Interpretation Comments Absolute Neutrophils (test code = 81763-7) 1.7 X10E3/UL 1.4-7.0 [facility] Healthbasophils as percent of blood hqfrvntafa5086-43-18 09:59:00* Test Item Value Reference Range Interpretation Comments basophils as percent of blood leukocytes (test code = 707-0) 0 % [facility] Healtheosinophils as percent of blood mwudhaokeo6595-92-16 09:59:00* Test Item Value Reference Range Interpretation Comments eosinophils as percent of blood leukocytes (test code = 713-8) 1 % [facility] Healthmonocytes as percent of blood dyvyimwone1933-17-07 09:59:00* Test Item Value Reference Range Interpretation Comments monocytes as percent of blood leukocytes (test code = 5905-5) 13 % [facility] Healthlymphocytes as percent of blood tpljyjpdja8979-73-75 09:59:00* Test Item Value Reference Range Interpretation Comments lymphocytes as percent of blood leukocytes (test code = 736-9) 35 % [facility] Healthneutrophils as percent of blood oedgigaupp8100-43-86 09:59:00* Test Item Value Reference Range Interpretation Comments neutrophils as percent of blood leukocytes (test code = 770-8) 51 % [facility] Healthplatelet rzobm5866-57-43 09:59:00* Test Item Value Reference Range Interpretation Comments platelet count (test code = 777-3) 248 X10E3/UL 150-379 [facility] Healthred blood cell distribution hyjnj5215-35-01 09:59:00* Test Item Value Reference Range Interpretation Comments red blood cell distribution width (test code = 788-0) 15.0 % 12.3-15.4 [facility] corpuscular hemoglobin concentration, AML7735-23-56 09:59:00* Test Item Value Reference Range Interpretation Comments mean corpuscular hemoglobin concentration, RBC (test code = 786-4) 34.4 G/DL 31.5-35.7 [facility] corpuscular hemoglobin, UVC9645-33-67 09:59:00* Test Item Value Reference Range Interpretation Comments mean corpuscular hemoglobin, RBC (test code = 785-6) 31.8 pg 2 6.6-33.0 [facility] corpuscular volume, KXA9355-49-15 09:59:00* Test Item Value Reference Range Interpretation Comments mean corpuscular volume, RBC (test code = 787-2) 93 fL 79-97 [facility] Healthhematocrit, oqsrj9727-41-98 09:59:00* Test Item Value Reference Range Interpretation Comments hematocrit, blood (test code = 4544-3) 41.6 % 37.5-51.0 [facility] Healthhemoglobin, dxlfz8698-61-83 09:59:00* Test Item Value Reference Range Interpretation Comments hemoglobin, blood (test code = 718-7) 14.3 g/dL 13.0-17.7 [facility] Healtherythrocyte (RBC) ezxlz1446-97-15 09:59:00* Test Item Value Reference Range Interpretation Comments erythrocyte (RBC) count (test code = 789-8) 4.49 X10E6/UL 4.14-5.80 [facility] Healthleukocyte count, bpzmb6566-42-63 09:59:00* Test Item Value Reference Range Interpretation Comments leukocyte count, blood (test code = 6690-2) 3.5 X10E3/UL 3.4-10.8 [facility] HealthCD4/CD8 fgvbs1391-30-07 09:59:00* Test Item Value Reference Range Interpretation Comments CD4/CD8 ratio (test code = 05245) 0.20 0.92-3.72 L [facility] HealthT-suppressor cells (CD8) as percent of blood lymphocytes 2017-12-22 09:59:00* Test Item Value Reference Range Interpretation Comments T-suppressor cells (CD8) as percent of blood lymphocyt es (test code = 3517) 64.4 % 12.0-35.5 H [facility] Healthabsolute [id number] 09:59:00* Test Item Value Reference Range Interpretation Comments absolute CD8 (test code = 57741) 773 109-897 [facility] HealthT-helper cells (CD4) as percent of blood lymphocytes 2017-12-22 09:59:00* Test Item Value Reference Range Interpretation Comments T-helper cells (CD4) as percent of blood lymphocytes ( test code = 8123-2) 12.6 % 30.8-58.5 L [facility] HealthT-helper cells (CD4) gqmyq8401-87-15 09:59:00* Test Item Value Reference Range Interpretation Comments T-helper cells (CD4) count (test code = 55631-5) 151 /UL 359-1 519 L [facility] HealthNeisseria gonorrhoeae DNA hjrxz6345-96-07 09:52:00* Test Item Value Reference Range Interpretation Comments Neisseria gonorrhoeae DNA probe (test code = 06598-6) Negative Negative [facility] Healthchlamydia DNA uszdk5611-04-38 09:52:00* Test Item Value Reference Range Interpretation Comments chlamydia DNA probe (test code = 70282-0) Negative Negative [facility] HealthCT ABDOMEN/PELVIS LT7908-97-74 13:42:00 [facility] [address] [place] [address] Patient Name: RICK GORDON MR #: [id number] : 1990 Age/Sex: 27/M Req #: [id number] [facility] Physician: Ordered by: LUCIANA ONEAL MD Report #: [id number] Location: ER Room/Bed: Procedure: [id number] CT/CT ABDOMEN/PELVIS WO Ex am Date: 11/08/17 Exam Time: 1304 REPORT STATUS : Signed EXAM: CT Abdomen and Pelvis WITHOUT contrast INDICATION: COMPARISON: None. TECHNIQUE: Abdomen and pelvis were scanned u tilizing a multidetector helical scanner from the lung base to the pubic symph ysis without administration of IV contrast. Absence of intravenous contrast de creases sensitivity for detection of focal lesions and vascular pathology. Cor onal and sagittal reformations were obtained. Routine protocol was performed. IV CONTRAST: None. ORAL CONTRAST: Water RADIATION DOSE: Total DLP: 894.7 mGy*cm Estimated effective do se: (DLP x 0.015 x size factor) mSv COMPLICATIONS: None FINDI NGS: LINES and TUBES: None. LOWER THORAX: Unremarkable HEPATOBIL IARY: No focal hepatic lesions. No biliary ductal dilation. Small amount of pneumobilia may be postoperative. No calcification within the common bile d uct. GALLBLADDER: Cholecystectomy. SPLEEN: No splenomegaly. PANC REAS: No focal masses or ductal dilatation. Mild fat stranding surrounding th e pancreatic tail (series 3, image 16 on coronal image 61). ADRENALS: No ad renal nodules KIDNEYS/URETERS: No hydronephrosis. No cystic or solid m ass lesions. No stones. GI TRACT: No abnormal distention, wall thickenin g, or evidence of bowel obstruction. Appendix is normal. PELVIC ORG ANS/BLADDER: Unremarkable. LYMPH NODES: Few nonspecific subcentimeter left para-aortic and retroperitoneal lymph nodes, for example on series 3, image 92 . VESSELS: Unremarkable. PERITONEUM / RETROPERITONEUM: No free air or fluid. BONES: Unremarkable. SOFT TISSUES: Unremarkable. IMPRESSION: 1. Mild fat stranding surrounding the pancreatic tail may be due to acute pancreatitis. Correlate with pancreatic enzymes. 2. Status post cholecystectomy and mild pneumobilia, likely postoperative. 3. No elie cified stones within the biliary ducts on limited evaluation. Signed by: Dr Judy Huang M.D. on 11/08/2017 1:49 PM Dictated By: ANGIE HUANG MD 1349 COPY TO: CLYDE ONEAL MD Urine Ltfvw0318-49-57 13:24:00* Test Item Value Reference Range Interpretation Comments Urine Color (test code = 5778-6) YELLOW YELLOW [facility] Uoekreh8601-69-34 13:24:00* Test Item Value Reference Range Interpretation Comments Urine Clarity (test code = 86408-2) CLEAR CLEAR [facility] CenterU[facility] Specific Gpgccxz7683-91-49 13:24:00 * Test Item Value Reference Range Interpretation Comments Urine Specific [place] (test code = 5811-5) 1.020 1.010-1.[address] [facility] CenterU[facility] [id number] 13:24:00* Test Item Value Reference Range Interpretation Comments Urine pH (test code = 86115-5) 8 5-[address] [facility] CenterU[facility] Leukocyte Ggkpujvw3512-54-46 13:24:00* Test Item Value Reference Range Interpretation Comments Urine Leukocyte Esterase (test code = 5799-2) NEGATIVE NEGATIVE [facility] Center[facility] Cxnmvdm6821-33-68 13:24:00* Test Item Value Reference Range Interpretation Comments Urine Nitrite (test code = 59508-5) NEGATIVE NEGATIVE [facility] Center[facility] Nsoaizc8055-24-35 13:24:00* Test Item Value Reference Range Interpretation Comments Urine Protein (test code = 5804-0) 2+ NEGATIVE H [facility] CenterUrine Glucose (UA)2017-11-08 13:24:00* Test Item Value Reference Range Interpretation Comments Urine Glucose (UA) (test code = 2349-9) NEGATIVE NEGATIVE [facility] Xhpmpqx6844-27-70 13:24:00* Test Item Value Reference Range Interpretation Comments Urine Ketones (test code = 23006-6) NEGATIVE NEGATIVE [facility] Esubirvfgsnf7819-28-35 13:24:00* Test Item Value Reference Range Interpretation Comments Urine Urobilinogen (test code = 81507-4) 1 0.2-1 [facility] Eryimjimz4566-05-10 13:24:00* Test Item Value Reference Range Interpretation Comments Urine Bilirubin (test code = 1978-6) NEGATIVE NEGATIVE [facility] Xwsde3489-29-61 13:24:00* Test Item Value Reference Range Interpretation Comments Urine Blood (test code = 20867-0) NEGATIVE NEGATIVE [facility] NKY4484-70-56 13:24:00* Test Item Value Reference Range Interpretation Comments Urine WBC (test code = 5821-4) 0-5 0-5 [facility] [id number] 13:24:00* Test Item Value Reference Range Interpretation Comments Urine RBC (test code = 15325-0) NONE 0-5 [facility] Bdpxtqfb7069-60-56 13:24:00* Test Item Value Reference Range Interpretation Comments Urine Bacteria (test code = 30179-3) NONE NONE [facility] Center[facility] Epithelial Uhwzl1419-42-75 13:24:00 * Test Item Value Reference Range Interpretation Comments Urine Epithelial Cells (test code = 94916-5) NONE NONE [facility] Gequh1356-70-22 13:19:00* Test Item Value Reference Range Interpretation Comments Sodium Level (test code = 2951-2) 138 136-145 [facility] CenterPotassium Gmyfv3146-05-07 13:19:00* Test Item Value Reference Range Interpretation Comments Potassium Level (test code = 2823-3) 4.1 3.5-5.1 [facility] CenterChloride Vmkcg8939-45-59 13:19:00* Test Item Value Reference Range Interpretation Comments Chloride Level (test code = 2075-0) 101 98-107 [facility] CenterCarbon Dioxide Nvksj8565-82-11 13:19:00* Test Item Value Reference Range Interpretation Comments Carbon Dioxide Level (test code = 2028-9) 28 22-29 [facility] CenterAnion Kyi3769-80-40 13:19:00* Test Item Value Reference Range Interpretation Comments Anion Gap (test code = 73229-6) 13.1 8-16 [facility] CenterBlood Urea Qhitvlig8261-51-48 13:19:00* Test Item Value Reference Range Interpretation Comments Blood Urea Nitrogen (test code = 3094-0) 8 7-26 [facility] CenterCreatinine2018-07-01 13:19:00* Test Item Value Reference Range Interpretation Comments Creatinine (test code = 2160-0) 1.03 0.72-1.25 [facility] CenterBUN/Creatinine Zbsbw5130-22-31 13:19:00* Test Item Value Reference Range Interpretation Comments BUN/Creatinine Ratio (test code = 3097-3) 8 6- [facility] CenterEstimat Glomerular Filtration Rate 2017-11-08 13:19:00* Test Item Value Reference Range Interpretation Comments Estimat Glomerular Filtration Rate (test code = 37365-6) 60- >60 Ranges were taken from the National Kidney Disease Education Program and the [facility] literature.Reference ranges:60 or greater: Wlazqc04-09 ( for 3 consecutive months): Chronic kidney disease 15 or less: Kidney failureSt. Joseph Medical CenterGlucose Gievi5667-34-82 13:19:00* Test Item Value Reference Range Interpretation Comments Glucose Level (test code = QEN6468) 109 74-118 [facility] CenterCalcium Eenpb8366-95-33 13:19:00* Test Item Value Reference Range Interpretation Comments Calcium Level (test code = 17054-9) 9.6 8.4-10.2 [facility] CenterTotal Gofxcwtcz1292-84-97 13:19:00* Test Item Value Reference Range Interpretation Comments Total Bilirubin (test code = 1975-2) 1.0 0.2-1.2 [facility] CenterAspartate Amino Transf (AST/SGOT) 2017-11-08 13:19:00* Test Item Value Reference Range Interpretation Comments Aspartate Amino Transf (AST/SGOT) (test code = Aspartate Amino Transf (AST/SGOT)) 127 5-[address] [facility] CenterAlanine Aminotransferase (ALT/SGPT) 2017-11-08 13:19:00* Test Item Value Reference Range Interpretation Comments Alanine Aminotransferase (ALT/SGPT) (test code = 1742-6) 220 0-[address] [facility] CenterTotal [place]8238-45-62 13:19:00* Test Item Value Reference Range Interpretation Comments Total Protein (test code = 2885-2) 9.8 6.5-8.[address] [facility] CenterAlbumin2018-07-01 13:19:00* Test Item Value Reference Range Interpretation Comments Albumin (test code = 1751-7) 4.0 3.5-5.0 [facility] CenterGlobulin2018-07-01 13:19:00* Test Item Value Reference Range Interpretation Comments Globulin (test code = 37745-4) 5.8 2.3-3.[address] [facility] CenterAlbumin/Globulin Spqwn7385-25-79 13:19:00 * Test Item Value Reference Range Interpretation Comments Albumin/Globulin Ratio (test code = 1759-0) 0.7 0.8-2.[address] [facility] CenterAlkaline Kqhvpsrdvco0439-95-67 13:19:00* Test Item Value Reference Range Interpretation Comments Alkaline Phosphatase (test code = 6768-6) 69 40-150 [facility] CenterAmylase Lrnwj6435-20-24 13:19:00* Test Item Value Reference Range Interpretation Comments Amylase Level (test code = 1798-8) 84 25-125 [facility] CenterLipase2018-07-01 13:19:00* Test Item Value Reference Range Interpretation Comments Lipase (test code = 3040-3) 95 8-[address] [facility] CenterAmylase Dgqdz5843-79-21 13:19:00* Test Item Value Reference Range Interpretation Comments Amylase Level (test code = 1798-8) 84 25-125 [facility] CenterLipase2018-07-01 13:19:00* Test Item Value Reference Range Interpretation Comments Lipase (test code = 3040-3) 95 8-[address] [facility] CenterWhite Blood Qikiq5393-38-48 13:00:00* Test Item Value Reference Range Interpretation Comments White Blood Count (test code = 6690-2) 6.21 4.8-10.8 [facility] CenterRed Blood Nblpy9136-18-44 13:00:00* Test Item Value Reference Range Interpretation Comments Red Blood Count (test code = 789-8) 4.77 4.3-5.7 [facility] CenterHemoglobin2018-07-01 13:00:00* Test Item Value Reference Range Interpretation Comments Hemoglobin (test code = 32452-9) 14.5 14.0-18.0 [facility] CenterHematocrit2018-07-01 13:00:00* Test Item Value Reference Range Interpretation Comments Hematocrit (test code = 4544-3) 42.5 38.2-49.6 [facility] CenterMean Corpuscular Vdkuxj5701-64-16 13:00:00* Test Item Value Reference Range Interpretation Comments Mean Corpuscular Volume (test code = 787-2) 89.1 81-99 [facility] CenterMean Corpuscular Fcimweswdl0196-97-99 13:00:00* Test Item Value Reference Range Interpretation Comments Mean Corpuscular Hemoglobin (test code = 785-6) 30.4 28-32 [facility] CenterMean Corpuscular Hemoglobin Concent 2017-11-08 13:00:00* Test Item Value Reference Range Interpretation Comments Mean Corpuscular Hemoglobin Concent (test code = 786-4) 34.1 31-35 [facility] CenterRed Cell Distribution Wtola8985-82-97 13:00:00* Test Item Value Reference Range Interpretation Comments Red Cell Distribution Width (test code = 67394-9) 13.7 11.7 -14.4 [facility] CenterPlatelet Hzcvu3013-36-74 13:00:00* Test Item Value Reference Range Interpretation Comments Platelet Count (test code = 777-3) 255 140-360 [facility] CenterNeutrophils (%) (Auto)2017-11-08 13:00:00 * Test Item Value Reference Range Interpretation Comments Neutrophils (%) (Auto) (test code = 35862-2) 56.6 38.7-80.0 [facility] CenterLymphocytes (%) (Auto)2017-11-08 13:00:00 * Test Item Value Reference Range Interpretation Comments Lymphocytes (%) (Auto) (test code = 736-9) 33.3 18.0-39.1 [facility] CenterMonocytes (%) (Auto)2017-11-08 13:00:00* Test Item Value Reference Range Interpretation Comments Monocytes (%) (Auto) (test code = 5905-5) 8.7 4.4-11.3 [facility] CenterEosinophils (%) (Auto)2017-11-08 13:00:00 * Test Item Value Reference Range Interpretation Comments Eosinophils (%) (Auto) (test code = 713-8) 0.6 0.0-6.0 [facility] CenterBasophils (%) (Auto)2017-11-08 13:00:00* Test Item Value Reference Range Interpretation Comments Basophils (%) (Auto) (test code = 706-2) 0.3 0.0-1.0 [facility] CenterIM GRANULOCYTES %2017-11-08 13:00:00* Test Item Value Reference Range Interpretation Comments IM GRANULOCYTES % (test code = IM GRANULOCYTES %) 0.5 0.0- 1.0 [facility] CenterNeutrophils # (Auto)2017-11-08 13:00:00* Test Item Value Reference Range Interpretation Comments Neutrophils # (Auto) (test code = 751-8) 3.5 2.1-6.9 [facility] CenterLymphocytes # (Auto)2017-11-08 13:00:00* Test Item Value Reference Range Interpretation Comments Lymphocytes # (Auto) (test code = 29172-0) 2.1 1.0-3.2 [facility] CenterMonocytes # (Auto)2017-11-08 13:00:00* Test Item Value Reference Range Interpretation Comments Monocytes # (Auto) (test code = 742-7) 0.5 0.2-0.8 [facility] CenterEosinophils # (Auto)2017-11-08 13:00:00* Test Item Value Reference Range Interpretation Comments Eosinophils # (Auto) (test code = 711-2) 0.0 0.0-0.4 [facility] CenterBasophils # (Auto)2017-11-08 13:00:00* Test Item Value Reference Range Interpretation Comments Basophils # (Auto) (test code = 704-7) 0.0 0.0-0.1 [facility] CenterAbsolute Immature Granulocyte (auto 2017-11-08 13:00:00* Test Item Value Reference Range Interpretation Comments Absolute Immature Granulocyte (auto (shavon t code = Absolute Immature Granulocyte (auto) 0.03 0-0.1 [facility] CenterCarbamazepine (Tegretol) Wpbmd8463-89-45 17:54:00* Test Item Value Reference Range Interpretation Comments Carbamazepine (Tegretol) Level (test code = 3432-2) -2.0 4. 0-12.[address] [facility] CenterCarbamazepine (Tegretol) Xbvlj4650-06-92 17:54:00* Test Item Value Reference Range Interpretation Comments Carbamazepine (Tegretol) Level (test code = 3432-2) -2.0 4. 0-12.[address] [facility] CenterCarbamazepine (Tegretol) Xsgve4038-29-97 17:54:00* Test Item Value Reference Range Interpretation Comments Carbamazepine (Tegretol) Level (test code = 3432-2) -2.0 4. 0-12.[address] [facility] CenterHIV-1 VNCZQKBG9100-52-47 10:48:00* Test Item Value Reference Range Interpretation Comments NH GENE MUTATIONS (QUEST) (test code = 3200368) DETECTED A HIV Subtype: B Antiretroviral drugs Resistance Mutations Detected Predicted ! ! NRTIs ! !ZDV (zidovudine or Retrovir) ! NO! ABC (abacavir or Ziagen) ! NO! ddI (didanosine or Videx) ! NO! 3TC (lamivudine or Epivir) ! NO! FTC (emtricitabine or Emtriva) ! NO! d4T (stavudine or Zerit) ! NO! TDF (tenofovir or Viread) ! NO! !___! ! ! NNRTIs ! !ETR (etravirine or Intelence) !PRB!Y181Y/CEFV (efavirenz or Sustiva) ! NO! NVP (nevirapine or Viramune) !YES!Y181Y/CRPV (rilpivirine or Edurant) !PRB!Y181Y/C !___! ! ! PIs ! !FPV (fos- amprenavir or Lexiva) ! NO! IDV (indinavir or Crixivan) ! NO! NFV (nelfinavir or Viracept) ! NO! SQV (saquinavir or Invirase) ! NO! LPV (lopinavir or Kaletra) ! NO! ATV (atazanavir or Reyataz) ! NO! TPV (tipranavir or Aptivus) ! NO! DRV (darunavir or Prezista) ! NO! ! ! !___! PRB = PROBABLE OR EMERGING RESISTANCEOTHER MUTATIONS DETECTED:RT GENE MUTATIONS: V179A/V,R211K,T215T/IPR GENE MUTATIONS: L63Q,A71V,V77I,D99W The [employer] Jan 2016 Interpretation AlgorithmThe method used in this test is RT-PCR and sequencing Of the HIV-1 polymerase gene. The phrases "resistance predicted" and "probable Or emerging resistance" refer to the application of The interpretive rules. The FDA has not reviewedall of the interpretive rules used by the laboratory to predict drug resistance. FDA may not currently recognize some of the HIV gene mutations reported as predictive of drug resistance, but the laboratory considers these mutations to be associated with resistance to anti-viral drugs based on current clinical or scientific studies. The test has been validated pursuant to CLIA regulations and is not considered investigational or for research use only.Treatment decisions should be made in consideration of All relevant clinical and laboratory findings and theprescribing information for the drugs. This test was developed and its analytical Performance characteristics have been determined by [employer]. It has not been cleared or approved by FDA. This assay has been validated pursuant to the CLIA regulations and is used for clinical purposes. Performing Lab *[facility] [employer]. [address] [place] [address] Fabricio UNDERWOOD ATQE5808-34-90 14:47:00Surgical Pathology Report Case: [id number] Authorizing Provider: Joslyn Metz MD Ordering Provider: Joslyn Metz MD Ordering Location: [facility] Collected: 07/18/2016 1542 Patholog ist: Helio Darby MD Received: 07/21/2016 0805 Specimens: A) - Small Bowel, NOS, biopsy B) - Biopsy, Gastric A. Small bowel b iopsy - DUODENAL MUCOSA WITH PRESERVED VILLOUS ARCHITECTURE - NO INCREASE IN INTRAEPITHELIAL LYMPHOCYTES - FEW REACTIVE LYMPHOID AGGREGATES WITH PLASMA CE LLS NOTED - NEGATIVE FOR PARASITE OR GRANULOMASB. STOMACH, BIOPSY: - OXYNTIC AND ANTRAL MUCOSA WITH CHRONIC GASTRITIS AND REACTIVE GASTROPATHY - NO HELICOBACTER ORGANISMS IDENTIFIED (SPECIAL STAIN - WARTHIN-STARRY) - NO INTESTINAL METAPLASIA IDENTIFIED - NO DYSPLASIA OR MALIGNANCY IDENTIFIED Signi ng Pathologist Direct Phone Line: [phone] consultation: e duodenal biopsy has been additionally reviewed by GI Pathology, [facility] (Dr. Karol Marcelo) who concurs with the above diagnosis.[id number]; 883 12Abdominal pain, melena; EGDSmall bowel biopsy, gastric biopsyThe instrument, p aperwork and container all read [id number]. Received are two containers of formal in both labeled with the patient's name (Fantasma), and medical record number. Sp ecimen A: Received labeled "small bowel biopsy" are four fuentes soft tissue biopsie s varying from 0.2 to 0.4 cm in greatest dimensions. They are marked with blue d ye and are submitted in toto in A1.Specimen B: Received labeled "gastric biopsy" are five fuentes soft tissue biopsies varying from 0.1 to 0.3 cm in greatest dimens ions. They marked with blue dye and are submitted in toto in B1. DLG//plCBC W/PLT COUNT & AUTO CPIVERSSVVDX4902-87-88 05:15:00* Test Item Value Reference Range Interpretation Comments WHITE BLOOD CELL COUNT (BEAKER) (test code = 775) 2.5 K/ L 4.0- 10.0 L RED BLOOD CELL COUNT (BEAKER) (test code = 761) 4.78 M/ L 4.20-5 .80 HEMOGLOBIN (BEAKER) (test code = 410) 14.4 GM/DL 13.0-16.8 HEMATOCRIT (BEAKER) (test code = 411) 42.9 % 40.0-50.0 MEAN CORPUSCULAR VOLUME (BEAKER) (test code = 753) 89.8 fL 82. 0-98.0 MEAN CORPUSCULAR HEMOGLOBIN (BEAKER) (test code = 751) 30.2 pg 27.0-33.0 MEAN CORPUSCULAR HEMOGLOBIN CONC (BEAKER) (test code = 752) 33.6 GM/DL 32.0-36.0 RED CELL DISTRIBUTION WIDTH (BEAKER) (test code = 412) 13.8 % 12.0-15.0 PLATELET COUNT (BEAKER) (test code = 756) 216 K/CU MM 150-430 MEAN PLATELET VOLUME (BEAKER) (test code = 754) 7.4 fL 6.5-10 .5 NUCLEATED RED BLOOD CELLS (BEAKER) (test code = 413) 0 /100 WBC 0 -0 NEUTROPHILS RELATIVE PERCENT (BEAKER) (test code = 429) 37 % LYMPHOCYTES RELATIVE PERCENT (BEAKER) (test code = 430) 39 % MONOCYTES RELATIVE PERCENT (BEAKER) (test code = 431) 22 % EOSINOPHILS RELATIVE PERCENT (BEAKER) (test code = 432) 2 % BASOPHILS RELATIVE PERCENT (BEAKER) (test code = 437) 1 % NEUTROPHILS ABSOLUTE COUNT (BEAKER) (test code = 670) 0.90 K/ L 1.80-8.00 L LYMPHOCYTES ABSOLUTE COUNT (BEAKER) (test code = 414) 1.00 K/ L 1.48-4.50 L MONOCYTES ABSOLUTE COUNT (BEAKER) (test code = 415) 0.50 K/ L 0. 00-1.30 EOSINOPHILS ABSOLUTE COUNT (BEAKER) (test code = 416) 0.00 K/ L 0.00-0.50 BASOPHILS ABSOLUTE COUNT (BEAKER) (test code = 417) 0.00 K/ L 0. 00-0.20 (MANUAL DIFFERENTIAL)2016-07-20 05:15:00* Test Item Value Reference Range Interpretation Comments NEUTROPHILS - REL (DIFF) (BEAKER) (test code = 1359) 35 % LYMPHOCYTES - REL (DIFF) (BEAKER) (test code = 1360) 40 % MONOCYTES - REL (DIFF) (BEAKER) (test code = 1361) 23 % EOSINOPHILS - REL (DIFF) (BEAKER) (test code = 1362) 2 % NEUTROPHILS - ABS (DIFF) (BEAKER) (test code = 1365) 0.88 K/ L 1 .80-8.00 L LYMPHOCYTES - ABS (DIFF) (BEAKER) (test code = 1366) 1.00 K/ L 1 .48-4.50 L MONOCYTES - ABS (DIFF) (BEAKER) (test code = 1367) 0.58 K/ L 0.0 0-1.30 EOSINOPHILS - ABS (DIFF) (BEAKER) (test code = 1368) 0.05 K/ L 0 .00-0.50 TOTAL COUNTED (BEAKER) (test code = 1351) 100 WBC MORPHOLOGY (BEAKER) (test code = 487) Normal PLT MORPHOLOGY (BEAKER) (test code = 486) Normal RBC MORPHOLOGY (BEAKER) (test code = 762) Normal COMPREHENSIVE METABOLIC [id number] 05:02:00* Test Item Value Reference Range Interpretation Comments TOTAL PROTEIN (BEAKER) (test code = 770) 8.2 gm/dL 6.0-8.5 ALBUMIN (BEAKER) (test code = 1145) 3.8 g/dL 3.5-5.0 ALKALINE PHOSPHATASE (BEAKER) (test code = 346) 65 U/L 30-115 BILIRUBIN TOTAL (BEAKER) (test code = 377) 1.2 mg/dL 0.1-1.3 SODIUM (BEAKER) (test code = 381) 136 meq/L 135-148 POTASSIUM (BEAKER) (test code = 379) 3.7 meq/L 3.5-5.5 CHLORIDE (BEAKER) (test code = 382) 102 meq/L 98-106 CO2 (BEAKER) (test code = 355) 23 meq/L 20-31 BLOOD UREA NITROGEN (BEAKER) (test code = 354) 4 mg/dL 10-26 L CREATININE (BEAKER) (test code = 358) 0.72 mg/dL 0.50-1.20 GLUCOSE RANDOM (BEAKER) (test code = 652) 83 mg/dL 70-110 CALCIUM (BEAKER) (test code = 697) 9.0 mg/dL 8.5-10.5 AST (SGOT) (BEAKER) (test code = 353) 68 U/L 5-40 H ALT (SGPT) (BEAKER) (test code = 347) 136 U/L 6-50 H EGFR (BEAKER) (test code = 1092) 133 mL/min/1.73 sq m ESTIMATED GFR IS NOT ACCURATE CREATININE CLEARANCE IN PREDICTING GLOMERULAR FILTRATION RATE. ESTIMATED GFR IS NOT APPLICABLE FOR DIALYSIS PATIENTS. CBC W/PLT COUNT & AUTO [id number] 06:42:00* Test Item Value Reference Range Interpretation Comments WHITE BLOOD CELL COUNT (BEAKER) (test code = 775) 3.0 K/ L 4.0- 10.0 L RED BLOOD CELL COUNT (BEAKER) (test code = 761) 4.77 M/ L 4.20-5 .80 HEMOGLOBIN (BEAKER) (test code = 410) 14.5 GM/DL 13.0-16.8 HEMATOCRIT (BEAKER) (test code = 411) 43.0 % 40.0-50.0 MEAN CORPUSCULAR VOLUME (BEAKER) (test code = 753) 90.1 fL 82. 0-98.0 MEAN CORPUSCULAR HEMOGLOBIN (BEAKER) (test code = 751) 30.4 pg 27.0-33.0 MEAN CORPUSCULAR HEMOGLOBIN CONC (BEAKER) (test code = 752) 33.7 GM/DL 32.0-36.0 RED CELL DISTRIBUTION WIDTH (BEAKER) (test code = 412) 14.0 % 12.0-15.0 PLATELET COUNT (BEAKER) (test code = 756) 212 K/CU MM 150-430 MEAN PLATELET VOLUME (BEAKER) (test code = 754) 7.7 fL 6.5-10 .5 NUCLEATED RED BLOOD CELLS (BEAKER) (test code = 413) 0 /100 WBC 0 -0 NEUTROPHILS RELATIVE PERCENT (BEAKER) (test code = 429) 51 % LYMPHOCYTES RELATIVE PERCENT (BEAKER) (test code = 430) 31 % MONOCYTES RELATIVE PERCENT (BEAKER) (test code = 431) 15 % EOSINOPHILS RELATIVE PERCENT (BEAKER) (test code = 432) 2 % BASOPHILS RELATIVE PERCENT (BEAKER) (test code = 437) 0 % NEUTROPHILS ABSOLUTE COUNT (BEAKER) (test code = 670) 1.50 K/ L 1.80-8.00 L LYMPHOCYTES ABSOLUTE COUNT (BEAKER) (test code = 414) 0.90 K/ L 1.48-4.50 L MONOCYTES ABSOLUTE COUNT (BEAKER) (test code = 415) 0.50 K/ L 0. 00-1.30 EOSINOPHILS ABSOLUTE COUNT (BEAKER) (test code = 416) 0.10 K/ L 0.00-0.50 BASOPHILS ABSOLUTE COUNT (BEAKER) (test code = 417) 0.00 K/ L 0. 00-0.20 COMPREHENSIVE METABOLIC [id number] 06:40:00* Test Item Value Reference Range Interpretation Comments TOTAL PROTEIN (BEAKER) (test code = 770) 8.0 gm/dL 6.0-8.5 ALBUMIN (BEAKER) (test code = 1145) 3.7 g/dL 3.5-5.0 ALKALINE PHOSPHATASE (BEAKER) (test code = 346) 69 U/L 30-115 BILIRUBIN TOTAL (BEAKER) (test code = 377) 1.1 mg/dL 0.1-1.3 SODIUM (BEAKER) (test code = 381) 132 meq/L 135-148 L POTASSIUM (BEAKER) (test code = 379) 3.9 meq/L 3.5-5.5 CHLORIDE (BEAKER) (test code = 382) 101 meq/L 98-106 CO2 (BEAKER) (test code = 355) 24 meq/L 20-31 BLOOD UREA NITROGEN (BEAKER) (test code = 354) 6 mg/dL 10-26 L CREATININE (BEAKER) (test code = 358) 0.75 mg/dL 0.50-1.20 GLUCOSE RANDOM (BEAKER) (test code = 652) 72 mg/dL 70-110 CALCIUM (BEAKER) (test code = 697) 8.9 mg/dL 8.5-10.5 AST (SGOT) (BEAKER) (test code = 353) 71 U/L 5-40 H ALT (SGPT) (BEAKER) (test code = 347) 137 U/L 6-50 H EGFR (BENITOAKER) (test code = 1092) 127 mL/min/1.73 sq m ESTIMATED GFR IS NOT ACCURATE CREATININE CLEARANCE IN PREDICTING GLOMERULAR FILTRATION RATE. ESTIMATED GFR IS NOT APPLICABLE FOR DIALYSIS PATIENTS. HEPATITIS C PCR, [id number] 18:05:00* Test Item Value Reference Range Interpretation Comments HCV RESULT COMPONENT (OSCAR) (test code = 2699) HCV RNA not detected HCV RNA not detected This test uses a Real-Time Polymerase Chain Reaction (RT-PCR) methodology and wa s performed using BILL Ampliprep/BILL TaqMan HCV test kit version 2.0 ([employer]).Reportable range for this assay is 15 - 100,000,000 IU per mL (1.18 - 8.00 Log IU/mL).POCT-GLUCOSE [id number] 13:09:00* Test Item Value Reference Range Interpretation Comments POC-GLUCOSE METER (OSCAR) (test code = 1538) 71 mg/dL 70-110 TESTED AT [address] [address] FLOW CYTOMETRY [id number] 12:32:00* Test Item Value Reference Range Interpretation Comments FLOW CYTOMETRY RESULT POINTER (OSCAR) (test code = 2758) See [facility] Report FLOW CYTOMETRY AP CASE # (OSCAR) (test code = 2759) [id number] FLOW [id number] 12:11:00* Test Item Value Reference Range Interpretation Comments LAB AP CPT CODE (OSCAR) (test code = 2749) [id number] CBC W/PLT COUNT & AUTO [id number] 05:57:00* Test Item Value Reference Range Interpretation Comments WHITE BLOOD CELL COUNT (BEAKER) (test code = 775) 3.2 K/ L 4.0- 10.0 L RED BLOOD CELL COUNT (BEAKER) (test code = 761) 4.90 M/ L 4.20-5 .80 HEMOGLOBIN (BEAKER) (test code = 410) 14.6 GM/DL 13.0-16.8 HEMATOCRIT (BEAKER) (test code = 411) 44.5 % 40.0-50.0 MEAN CORPUSCULAR VOLUME (BEAKER) (test code = 753) 90.8 fL 82. 0-98.0 MEAN CORPUSCULAR HEMOGLOBIN (BEAKER) (test code = 751) 29.9 pg 27.0-33.0 MEAN CORPUSCULAR HEMOGLOBIN CONC (BEAKER) (test code = 752) 32.9 GM/DL 32.0-36.0 RED CELL DISTRIBUTION WIDTH (BEAKER) (test code = 412) 14.0 % 12.0-15.0 PLATELET COUNT (BEAKER) (test code = 756) 196 K/CU MM 150-430 MEAN PLATELET VOLUME (BEAKER) (test code = 754) 7.2 fL 6.5-10 .5 NUCLEATED RED BLOOD CELLS (BEAKER) (test code = 413) 0 /100 WBC 0 -0 NEUTROPHILS RELATIVE PERCENT (BEAKER) (test code = 429) 36 % LYMPHOCYTES RELATIVE PERCENT (BEAKER) (test code = 430) 45 % MONOCYTES RELATIVE PERCENT (BEAKER) (test code = 431) 16 % EOSINOPHILS RELATIVE PERCENT (BEAKER) (test code = 432) 3 % BASOPHILS RELATIVE PERCENT (BEAKER) (test code = 437) 0 % NEUTROPHILS ABSOLUTE COUNT (BEAKER) (test code = 670) 1.20 K/ L 1.80-8.00 L LYMPHOCYTES ABSOLUTE COUNT (BEAKER) (test code = 414) 1.50 K/ L 1.48-4.50 MONOCYTES ABSOLUTE COUNT (BEAKER) (test code = 415) 0.50 K/ L 0. 00-1.30 EOSINOPHILS ABSOLUTE COUNT (BEAKER) (test code = 416) 0.10 K/ L 0.00-0.50 BASOPHILS ABSOLUTE COUNT (BEAKER) (test code = 417) 0.00 K/ L 0. 00-0.20 Smear reviewed. Results confirmed.COMPREHENSIVE METABOLIC [id number] 05:23:00* Test Item Value Reference Range Interpretation Comments TOTAL PROTEIN (BEAKER) (test code = 770) 8.1 gm/dL 6.0-8.5 Specimen slightly hemolyzed ALBUMIN (BEAKER) (test code = 1145) 3.5 g/dL 3.5-5.0 Specimen slightly hemolyzed ALKALINE PHOSPHATASE (BEAKER) (test code = 346) 69 U/L 30-115 BILIRUBIN TOTAL (BEAKER) (test code = 377) 1.4 mg/dL 0.1-1.3 H Specimen slightly hemolyzed SODIUM (BEAKER) (test code = 381) 132 meq/L 135-148 L POTASSIUM (BEAKER) (test code = 379) 4.2 meq/L 3.5-5.5 Specimen slightly hemolyzed CHLORIDE (BEAKER) (test code = 382) 102 meq/L 98-106 CO2 (BEAKER) (test code = 355) 17 meq/L 20-31 L BLOOD UREA NITROGEN (BEAKER) (test code = 354) 5 mg/dL 10-26 L CREATININE (BEAKER) (test code = 358) 0.76 mg/dL 0.50-1.20 Specimen slightly hemolyzed GLUCOSE RANDOM (BEAKER) (test code = 652) 67 mg/dL 70-110 L CALCIUM (BEAKER) (test code = 697) 9.2 mg/dL 8.5-10.5 AST (SGOT) (BEAKER) (test code = 353) 75 U/L 5-40 H Specimen slightly hemolyzed ALT (SGPT) (BEAKER) (test code = 347) 127 U/L 6-50 H Specimen slightly hemolyzed EGFR (BEAKER) (test code = 1092) 125 mL/min/1.73 sq m ESTIMATED GFR IS NOT ACCURATE CREATININE CLEARANCE IN PREDICTING GLOMERULAR FILTRATION RATE. ESTIMATED GFR IS NOT APPLICABLE FOR DIALYSIS PATIENTS. LIPID [id number] 05:18:00* Test Item Value Reference Range Interpretation Comments TRIGLYCERIDES (BEAKER) (test code = 540) 110 mg/dL Specimen slightly hemolyzed CHOLESTEROL (BEAKER) (test code = 631) 122 mg/dL Specimen slightly hemolyzed HDL CHOLESTEROL (BEAKER) (test code = 976) 28 mg/dL LDL CHOLESTEROL CALCULATED (BEAKER) (test code = 633) 72 mg/dL Triglyceride Reference Range: Low Risk <150 Borderline 150-199 High Risk 200-499 Very High Risk >=500Cholesterol Reference Range: Low Risk <200 Borderline 200-239 High Risk >240HDL Cholesterol Reference Range: Low Risk >=60 High Risk <40LDL Cholesterol Reference Range: Optimal <100 Near Optimal 100-129 Borderline 130-159 High 160-189 Very High >=190 AMYLASE 2016-07-18 05:18:00* Test Item Value Reference Range Interpretation Comments AMYLASE (BEAKER) (test code = 349) 64 U/L 30-110 Specimen slightly hemolyzed [id number] 05:18:00* Test Item Value Reference Range Interpretation Comments LIPASE (BEAKER) (test code = 749) 26 U/L 8-78 BASIC METABOLIC [id number] 04:22:00* Test Item Value Reference Range Interpretation Comments SODIUM (BEAKER) (test code = 381) 135 meq/L 135-148 POTASSIUM (BEAKER) (test code = 379) 3.9 meq/L 3.5-5.5 CHLORIDE (BEAKER) (test code = 382) 103 meq/L 98-106 CO2 (BEAKER) (test code = 355) 25 meq/L 20-31 BLOOD UREA NITROGEN (BEAKER) (test code = 354) 5 mg/dL 10-26 L CREATININE (BEAKER) (test code = 358) 0.81 mg/dL 0.50-1.20 GLUCOSE RANDOM (BEAKER) (test code = 652) 77 mg/dL 70-110 CALCIUM (BEAKER) (test code = 697) 8.8 mg/dL 8.5-10.5 EGFR (BEAKER) (test code = 1092) 116 mL/min/1.73 sq m ESTIMATED GFR IS NOT ACCURATE CREATININE CLEARANCE IN PREDICTING GLOMERULAR FILTRATION RATE. ESTIMATED GFR IS NOT APPLICABLE FOR DIALYSIS PATIENTS. CBC W/PLT COUNT & AUTO [id number] 03:57:00* Test Item Value Reference Range Interpretation Comments WHITE BLOOD CELL COUNT (BEAKER) (test code = 775) 3.5 K/ L 4.0- 10.0 L RED BLOOD CELL COUNT (BEAKER) (test code = 761) 4.79 M/ L 4.20-5 .80 HEMOGLOBIN (BEAKER) (test code = 410) 14.5 GM/DL 13.0-16.8 HEMATOCRIT (BEAKER) (test code = 411) 42.9 % 40.0-50.0 MEAN CORPUSCULAR VOLUME (BEAKER) (test code = 753) 89.5 fL 82. 0-98.0 MEAN CORPUSCULAR HEMOGLOBIN (BEAKER) (test code = 751) 30.3 pg 27.0-33.0 MEAN CORPUSCULAR HEMOGLOBIN CONC (BEAKER) (test code = 752) 33.8 GM/DL 32.0-36.0 RED CELL DISTRIBUTION WIDTH (BEAKER) (test code = 412) 13.8 % 12.0-15.0 PLATELET COUNT (BEAKER) (test code = 756) 213 K/CU MM 150-430 MEAN PLATELET VOLUME (BEAKER) (test code = 754) 7.2 fL 6.5-10 .5 NUCLEATED RED BLOOD CELLS (BEAKER) (test code = 413) 0 /100 WBC 0 -0 NEUTROPHILS RELATIVE PERCENT (BEAKER) (test code = 429) 46 % LYMPHOCYTES RELATIVE PERCENT (BEAKER) (test code = 430) 36 % MONOCYTES RELATIVE PERCENT (BEAKER) (test code = 431) 15 % EOSINOPHILS RELATIVE PERCENT (BEAKER) (test code = 432) 2 % BASOPHILS RELATIVE PERCENT (BEAKER) (test code = 437) 1 % NEUTROPHILS ABSOLUTE COUNT (BEAKER) (test code = 670) 1.60 K/ L 1.80-8.00 L LYMPHOCYTES ABSOLUTE COUNT (BEAKER) (test code = 414) 1.30 K/ L 1.48-4.50 L MONOCYTES ABSOLUTE COUNT (BEAKER) (test code = 415) 0.50 K/ L 0. 00-1.30 EOSINOPHILS ABSOLUTE COUNT (BEAKER) (test code = 416) 0.10 K/ L 0.00-0.50 BASOPHILS ABSOLUTE COUNT (BEAKER) (test code = 417) 0.00 K/ L 0. 00-0.20
[2019-12-14 15:56] LABS: INR 0.92; PROTHROMBIN TIME 12.8 seconds (11.9-14.5)
[2019-12-14 15:57] LABS: PARTIAL THROMBOPLASTIN TIME 29.8 seconds (23.8-35.5)
[2019-12-14 16:50] LABS: ALANINE AMINOTRANSFERASE 25 IU/L (0-55); ALBUMIN 4.1 g/dL (3.5-5.0); ALKALINE PHOSPHATASE 70 IU/L (40-150); ANION GAP 10.8 mmol/L (8-16); BLOOD UREA NITROGEN 10 mg/dL (7-26); BUN/CREATININE RATIO 10 (6-25); CALCIUM 8.8 mg/dL (8.4-10.2); CARBON DIOXIDE 21 mmol/L (22-29); CHLORIDE 108 mmol/L (98-107); CREATINE KINASE 95 IU/L (30-200); CREATININE, SERUM 1.05 mg/dL (0.72-1.25); EST GLOMERULAR FILTRATION RATE > 60 ML/MIN (60-); GLUCOSE 99 mg/dL (74-118); POTASSIUM 3.8 mmol/L (3.5-5.1); SODIUM 136 mmol/L (136-145)
[2019-12-14 17:31] LABS: THYROID STIMULATING HORMONE 0.777 uIU/mL (0.350-4.940)
--- NOTE | 2019-12-14 18:04 | Diagnostic Imaging Report ---
EXAMINATION: CT scan of the chest with contrast. TECHNIQUE: Helical CT images of the chest were performed from the lung apices to the level of the adrenal glands after the intravenous administration of 100 cc of Omnipaque 300. Coronal and sagittal reformatted images were obtained. Dose modulation, iterative reconstruction, and/or weight based adjustment of the mA/kV was utilized to reduce the radiation dose to as low as reasonably achievable. COMPARISON: None. CLINICAL HISTORY:Chest pain, evaluate for thrombosis DISCUSSION: LINES/TUBES: None. LUNGS AND AIRWAYS: The lungs are clear. No pulmonary nodules, masses or consolidation. The airways are normal, without endobronchial lesions. PLEURA: No pneumothorax or pleural effusions. HEART AND MEDIASTINUM: The thyroid gland is normal. The heart and pericardium are within normal limits. LYMPH NODES: There is no mediastinal, hilar or axillary lymphadenopathy. ABDOMEN: Limited contrast-enhanced views of the upper abdomen show no abnormality within the visualized liver, spleen, pancreas, or kidneys. The adrenal glands are normal. BONES AND SOFT TISSUES: No acute bony abnormalities. IMPRESSION: No pulmonary embolism Signed by: Dr. Gavin Larson M.D. on 12/14/2019 6:01 PM
[2019-12-14] MEDS ORDERED: SODIUM CHLORIDE 0.9% 50ML 50 ML ONE (18:16)
[2019-12-14] MEDS ORDERED: IOPAMIDOL 370 MG/ML 200 ML INFUS..BTL INJ ONE (18:16)
--- NOTE | 2019-12-14 18:25 | Emergency Department Note ---
History of Present Illnes History of Present Illness Chief Complaint: COVID PUI History of Present Illness This is a 29 year old male CP X 3 DAYS SUBSTERNAL NON RADIATING. SOB. Historian: Patient Arrival Mode: Car Clinical Field Specialist Required: No Onset (how long ago): day(s) (3) Location: CHEST Quality: PAIN Radiation: Reports non-radiation Severity: moderate Onset quality: gradual Timing of current episode: intermittent Progression: waxing and waning Chronicity: new Context: Denies recent illness Relieving factors: none Exacerbating factors: none Associated symptoms: Reports denies other symptoms Past Medical/Family History Physician Review I have reviewed the patient's past medical and family history. Any updates have been documented here. Past Medical History Recent Fever: No Clinical Suspicion of Infectio: No New/Unexplained Change in Ment: No Past Medical History: Asthma, Hepatitis C, Seizure Disorder, Migraines, HIV, GERD Other Medical History: HIV POSITIVE (Undetectable) PANCREATITIS Past Surgical History: Cholecysctectomy Social History Smoking Cessation: Current every day smoker Counseling Performed: Yes Alcohol Use: None Any Illegal Drug Use: No TB Exposure/Symptoms: No Physically hurt or threatened: No Family History Family history of heart diseas: No Other Last Tetanus: UNKNOWN Any Pre-Existing Lines (PICC,: No Review of Systems Review of Systems Constitutional: Reports no symptoms EENTM: Reports no symptoms Cardiovascular: Reports as per HPI Respiratory: Reports as per HPI Gastrointestinal: Reports no symptoms Genitourinary: Reports no symptoms Musculoskeletal: Reports no symptoms Integumentary: Reports no symptoms Neurological: Reports no symptoms Psychological: Reports no symptoms Endocrine: Reports no symptoms Hematological/Lymphatic: Reports no symptoms Physical Exam Related Data Allergies: Coded Allergies: abacavir (Verified Allergy, Intermediate, 09/30/17) dolutegravir (Verified Allergy, Intermediate, 09/30/17) lamivudine (Verified Allergy, Intermediate, 09/30/17) Triage Vital Signs Vital Signs Date Time Temp Pulse Resp B/P (MAP) Pulse Ox O2 Delivery O2 Flow Rate FiO2 12/14/19 15:00 98.5 78 18 132/67 100 Room Air 12/14/19 16:03 2.0 Vital signs reviewed: Yes Physical Exam CONSTITUTIONAL Constitutional: Present well-developed, Present well-nourished HENT HENT: Present normocephalic, Present atraumatic, Present oropharynx clear/moist, Present nose normal HENT L/R: Present left ext ear normal, Present right ext ear normal EYES Eyes: Reports PERRL, Reports conjunctivae normal NECK Neck: Present ROM normal PULMONARY Pulmonary: Present effort normal, Present breath sounds normal CARDIOVASCULAR Cardiovascular: Present regular rhythm, Present heart sounds normal, Present capillary refill normal, Present normal rate GASTROINTESTINAL Abdominal: Present soft, Present nontender, Present bowel sounds normal GENITOURINARY Genitourinary: Present exam deferred SKIN Skin: Present warm, Present dry MUSCULOSKELETAL Musculoskeletal: Present ROM normal NEUROLOGICAL Neurological: Present alert, Present oriented x 3, Present no gross motor or sensory deficits PSYCHOLOGICAL Psychological: Present mood/affect normal, Present judgement normal Results Laboratory Result Diagram: 12/14/19 1508 12/14/19 1613 Laboratory Laboratory Tests Test 12/14/19 16:13 12/14/19 15:48 12/14/19 15:08 Sodium Level 136 mmol/L (136-145) Potassium Level 3.8 mmol/L (3.5-5.1) Chloride Level 108 mmol/L (98-107) Carbon Dioxide Level 21 mmol/L (22-29) Anion Gap 10.8 mmol/L (8-16) Blood Urea Nitrogen 10 mg/dL (7-26) Creatinine 1.05 mg/dL (0.72-1.25) Estimat Glomerular Filtration Rate > 60 ML/MIN (60-) BUN/Creatinine Ratio 10 (6-25) Glucose Level 99 mg/dL (74-118) Calcium Level 8.8 mg/dL (8.4-10.2) Magnesium Level 2.0 MG/DL (1.3-2.1) Total Bilirubin 0.7 mg/dL (0.2-1.2) Aspartate Amino Transf (AST/SGOT) 18 IU/L (5-34) Alanine Aminotransferase (ALT/SGPT) 25 IU/L (0-55) Alkaline Phosphatase 70 IU/L (40-150) Creatine Kinase 95 IU/L (30-200) Creatine Kinase MB 0.60 ng/mL (0-5.0) Troponin I < 0.001 ng/mL (0-0.300) Total Protein 8.2 g/dL (6.5-8.1) Albumin 4.1 g/dL (3.5-5.0) Globulin 4.1 g/dL (2.3-3.5) Albumin/Globulin Ratio 1.0 (0.8-2.0) Thyroid Stimulating Hormone (TSH) 0.777 uIU/mL (0.350-4.940) Ethyl Alcohol Level < 10.0 mg/dL (0.0-10.0) White Blood Count 6.83 x10e3/uL (4.8-10.8) Red Blood Count 4.93 x10e6/uL (4.3-5.7) Hemoglobin 15.3 g/dL (14.0-18.0) Hematocrit 44.4 % (38.2-49.6) Mean Corpuscular Volume 90.1 fL (81-99) Mean Corpuscular Hemoglobin 31.0 pg (28-32) Mean Corpuscular Hemoglobin Concent 34.5 g/dL (31-35) Red Cell Distribution Width 12.8 % (11.7-14.4) Platelet Count 260 x10e3/uL (140-360) Neutrophils (%) (Auto) 59.8 % (38.7-80.0) Lymphocytes (%) (Auto) 29.6 % (18.0-39.1) Monocytes (%) (Auto) 7.6 % (4.4-11.3) Eosinophils (%) (Auto) 2.3 % (0.0-6.0) Basophils (%) (Auto) 0.6 % (0.0-1.0) Neutrophils # (Auto) 4.1 (2.1-6.9) Lymphocytes # (Auto) 2.0 (1.0-3.2) Monocytes # (Auto) 0.5 (0.2-0.8) Eosinophils # (Auto) 0.2 (0.0-0.4) Basophils # (Auto) 0.0 (0.0-0.1) Absolute Immature Granulocyte (auto 0.01 x10e3/uL (0-0.1) Prothrombin Time 12.8 seconds (11.9-14.5) Prothromb Time International Ratio 0.92 Activated Partial Thromboplast Time 29.8 seconds (23.8-35.5) Urine Opiates Screen Negative (NEGATIVE) Urine Methadone Screen Negative (NEGATIVE) Urine Barbiturates Screen Negative (NEGATIVE) Urine Phencyclidine Screen Negative (NEGATIVE) Urine Amphetamines Screen Negative (NEGATIVE) Urine Methamphetamines Screen Negative (NEGATIVE) Urine Benzodiazepines Screen Negative (NEGATIVE) Urine Cocaine Screen Negative (NEGATIVE) Urine Cannabinoids Screen Positive (NEGATIVE) Lab results reviewed: Yes Imaging Imaging results reviewed: Yes Impressions Procedure: [id number] CT/CT CHEST W Exam Date: 12/14/19 Exam Time: 1732 REPORT STATUS: Signed EXAMINATION: CT scan of the chest with contrast. TECHNIQUE: Helical CT images of the chest were performed from the lung apices to the level of the adrenal glands after the intravenous administration of 100 cc of Omnipaque 300. Coronal and sagittal reformatted images were obtained. Dose modulation, iterative reconstruction, and/or weight based adjustment of the mA/kV was utilized to reduce the radiation dose to as low as reasonably achievable. COMPARISON: None. CLINICAL HISTORY:Chest pain, evaluate for thrombosis DISCUSSION: LINES/TUBES: None. LUNGS AND AIRWAYS: The lungs are clear. No pulmonary nodules, masses or consolidation. The airways are normal, without endobronchial lesions. PLEURA: No pneumothorax or pleural effusions. HEART AND MEDIASTINUM: The thyroid gland is normal. The heart and pericardium are within normal limits. LYMPH NODES: There is no mediastinal, hilar or axillary lymphadenopathy. ABDOMEN: Limited contrast-enhanced views of the upper abdomen show no abnormality within the visualized liver, spleen, pancreas, or kidneys. The adrenal glands are normal. BONES AND SOFT TISSUES: No acute bony abnormalities. IMPRESSION: No pulmonary embolism Signed by: Dr. John Munguia M.D. on 12/14/2019 6:01 PM Dictated By: JOHN MUNGUIA MD 00 Transcribed By: BHAVESH on 12/14/191800 Procedures 12 Lead ECG Interpretation ECG Interpretation : ECG: ECG 1 Clinical Field Specialist: Interpreted by ED physician Date: Dec 14, 2019 Time: 15:05 Rhythm: sinus rhythm Rate: normal (72) QRS axis: normal ST segments normal: Yes T waves normal: Yes Clinical Impression: normal ECG Assessment & Plan Medical Decision Making MDM CBC, CHEM, ECG, CARDIACS, CT CHEST - R/O PNEUMONIA, STEMI/NSTEMI, PULM EMBOLISM Reassessment Reassessment W/U NEGATIVE, DC HOME, F/U PCP AND CARDIOLOGY TOMORROW, F/U COVID TEST RESULTS, RECOMMEND SELF-QUARANTINE, PRONING Assessment & Plan Final Impression: (1) Chest pain (2) Dyspnea Depart Disposition: HOME, SELF-CARE Last Vital Signs Date Time Temp Pulse Resp B/P (MAP) Pulse Ox O2 Delivery O2 Flow Rate FiO2 12/14/19 17:56 98.8 65 18 119/85 100 Nasal Cannula 2.0 Home Meds Active Scripts Acetaminophen With Codeine (TYLENOL WITH CODEINE #3 TABLET) 1 Each Tablet, 300 MG PO Q4H PRN for kory, #15 TAB Prov:BALDOMERO LAGUNAS RN NEUROSURGICAL 01/13/18 Reported Medications Levetiracetam (KEPPRA) 750 Mg Tablet, PO 06/02/19 Topiramate (TOPAMAX) 200 Mg Tablet 06/02/19 Topiramate (TOPAMAX) 50 Mg Tablet, 100 PO BID 06/02/19 Darunavir/Cobicistat (Prezcobix 800 mg-150 mg Tablet) 1 Each Tablet 06/01/19 Sertraline Hcl (SERTRALINE HCL) 50 Mg Tablet, 50 MG PO DAILY, #30 TAB 06/01/19 [Tivicay] 50 MG No Conflict Check, 50 MG PO DAILY, #30 01/13/18 Levetiracetam (LEVETIRACETAM) 1,000 Mg Tablet, 1000 MG PO BID, #180 01/13/18 Medications in the ED Sodium Chloride 50 ml @ ud STK-MED ONCE .ROUTE ; Start 12/14/19 at 18:16; Stop 12/14/19 at 18:10; Status DC Iopamidol 74,000 mg STK-MED ONCE INJ ; Start 12/14/19 at 18:16; Stop 12/14/19 at 18:10; Status DC OLVIN EUBANKS MD Dec 14, 2019 18:25
[2019-12-14] MEDS ORDERED: KETOROLAC TROMETHAMINE 30 MG/ML VIAL IV STA (18:26)
[2019-12-14 18:40] VITALS: BP 136/75
== END 2019-12-14 19:14 | disposition home or self-care (01) ==
LOC: ER 15:38
DX: R07.9 Chest pain, unspecified (principal); R06.00 Dyspnea, unspecified; K21.9 Gastro-esophageal reflux disease without esophagitis; G40.909 Epilepsy, unspecified, not intractable, without status epilepticus; B20 Human immunodeficiency virus [HIV] disease; J45.909 Unspecified asthma, uncomplicated; B19.20 Unspecified viral hepatitis C without hepatic coma; F17.210 Nicotine dependence, cigarettes, uncomplicated
CPT/HCPCS: 36415; 71260; 80053; 80307; 80320; 82550; 82553; 83735; 84443; 84484; 85025; 85610; 85730; 99284; Q9967; U0002